=== PATIENT | female | born 1945 | race Caucasian/White ===

== ENCOUNTER → 2017-02-18 | Outpatient (CLI) | payer MEDICARE, BC ==
--- NOTE | 2017-02-18 08:53 | FL ---
EXAMINATION TYPE: FL barium enema w air contrast DATE OF EXAM: 02/18/2017 COMPARISON: CT abdomen pelvis dated 02/28/2010. HISTORY: History of bowel obstruction. Small caliber stools. TECHNIQUE: A double contrast barium enema study is performed. FINDINGS: Bag Adjuster view of the abdomen shows overall non-obstructive bowel gas pattern. Cholecystectomy clips are seen within the right upper quadrant. Degenerative changes are appreciated of the thoracol umbar spine, lumbosacral spine and femoral acetabular joints. No evidence of any mass or polyp, obstructing or constricting lesion throughout the colon. Numerous s igmoid diverticula are noted. Appendix was filled and appeared normal. The terminal ileum was refluxed and appears within normal l imits. Spot images of the cecum are unremarkable. IMPRESSION: 1. No evidence of obstruction or visualized mass. 2. Sigmoid diverticulosis.
== END | disposition home or self-care (01) ==
LOC: RADFLMAIN 07:38
PROVIDERS: ATTEND Surgery
DX: K57.30 Diverticulosis of large intestine without perforation or abscess without bleeding (principal)
CPT/HCPCS: 74280

== ENCOUNTER → 2017-02-25 | Outpatient (CLI) | payer MEDICARE, BC ==
[2017-02-25 12:39] LABS: EKG EKG PERFORMED
[2017-02-25 13:01] LABS: Basophils # (A) 0.1 k/uL (0-0.2); Basophils % (A) 1 %; CH 31.5; CHCM 32.4; Eosinophils # (A) 0.3 k/uL (0-0.7); Eosinophils % (A) 4 %; HCT 42.9 % (34.0-46.0); HGB 14.6 gm/dL (11.4-16.0); Luc # (Auto) 0.18; Luc % (Auto) 3; Lymphocytes # (A) 1.3 k/uL (1.0-4.8); Lymphocytes % (A) 18 %; MCH 33.2 pg (25.0-35.0); MCV 97.6 fL (80.0-100.0); Mean Platelet Volume 8.2; Monocytes # (A) 0.5 k/uL (0-1.0); Monocytes % (A) 7 %; Neutrophils # (A) 4.7 k/uL (1.3-7.7); Neutrophils % (A) 68 %; RDW 12.8 % (11.5-15.5); WBC 6.9 k/uL (3.8-10.6)
[2017-02-25 13:31] LABS: Anion Gap 8 mmol/L; Carbon Dioxide 27 mmol/L (22-30); Chloride 105 mmol/L (98-107); Sodium 140 mmol/L (137-145)
== END | disposition home or self-care (01) ==
LOC: LABPAT 12:10
PROVIDERS: ATTEND Surgery
DX: Z01.810 Encounter for preprocedural cardiovascular examination (principal); Z01.812 Encounter for preprocedural laboratory examination
CPT/HCPCS: 80051; 85025; 93005

== ENCOUNTER 2017-03-02 08:44 | Inpatient (IN) | payer MEDICARE, BC ==
[2017-02-25 09:13] VITALS: BMI 31.8
[~2017-03-02 08:44] MED LIST: HEPARIN SODIUM,PORCINE 5,000 UNIT/ML 1 ML VIAL SQ ONE; HYDROmorphone 1 MG/ML 1 ML SYRINGE IVP PRN; LIDOCAINE 1% 20 ML VIAL (10MG/ML) FOR IV START INTRADERMA PRN; MIDAZOLAM 2 MG/2 ML VIAL IV PRN; ONDANSETRON 4 MG/2 ML VIAL IVP ONE; ceFAZolin 2 GM in SODIUM CHLORIDE 0.9% 100 ML IVPB ONE; fentaNYL (PF) 50 MCG/ML 20 ML VIAL IVP PRN; metroNIDAZOLE-NS PMX 500 MG in SALINE 1 100ML.BAG IVPB ONE
[2017-03-02] MEDS ORDERED: NALOXONE 0.4 MG/ML 1 ML VIAL IV PRN (10:11)
[2017-03-02] MEDS ORDERED: BUPIVACAINE (PF) 0.5% 31.3 ML, HYDROMORPHONE (PF) 5 MG in SODIUM CHLORIDE 0.9% 218 ML EPIDURAL PRN (10:11)
[2017-03-02] MEDS: LACTATED RINGERS 1,000 ML IV SCH (10:33)
[2017-03-02] MEDS ORDERED: MIDAZOLAM 2 MG/2 ML VIAL IV ONE (10:53)
[2017-03-02] MEDS ORDERED: fentaNYL (PF) 50 MCG/ML 2 ML AMP IV ONE (10:53)
--- NOTE | 2017-03-02 10:56 | P.GSHP ---
History of Present Illness H&P Date: 03/02/17 Chief Complaint: Diverticulitis This a 71-year-old female who's had chronic complaints of left lower quadrant pain. She has had previous history of diverticulitis. Patient presents today for low anterior resection for chronic diverticulitis. Patient's aware the risks of surgery including bleeding, wound infection and possible colostomy. - Constitutional Constitutional: Reports as per HPI Past Medical History Past Medical History: Cancer, COPD, GERD/Reflux, Hyperlipidemia, Osteoarthritis (OA) Additional Past Medical History / Comment(s): diverticulitis, IBS, constipation , diarrhea, occ blood in stool, HX OF UTERINE CA. History of Any Multi-Drug Resistant Organisms: None Reported Past Surgical History: Breast Surgery, Cholecystectomy, Hysterectomy, Tonsillectomy Additional Past Surgical History / Comment(s): LINDA FUNDOPLASTY. 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/2013). jorge breast lumpectomy Past Anesthesia/Blood Transfusion Reactions: Previous Problems w/ Anesthesia, Motion Sickness Additional Past Anesthesia/Blood Transfusion Reaction / Comment(s): had trouble breathing one time when coming out of anesthesia Smoking Status: Current every day smoker - Past Family History Father Family Medical History: Cancer Mother Family Medical History: Cancer Brother(s) Family Medical History: Cancer Medications and Allergies Home Medications Medication Instructions Recorded Confirmed Type Atorvastatin [Lipitor] 10 mg PO DAILY 02/21/15 02/25/17 History Escitalopram [Lexapro] 40 mg PO BID 02/21/15 02/25/17 History lamoTRIgine [LaMICtal] 150 mg PO QAM 02/21/15 02/25/17 History Aspirin 325 mg PO BID PRN 12/03/15 02/25/17 History traZODone HCL 100 mg PO HS 02/25/17 02/25/17 History Allergies Allergy/AdvReac Type Severity Reaction Status Date / Time Iodinated Contrast- Oral and Allergy Unknown AGITATION, Verified 03/02/17 10:14 IV Dye SHAKING [Iodinated Contrast Media - IV Dye] prochlorperazine edisylate Allergy Unknown Verified 03/02/17 10:14 [From Compazine] prochlorperazine maleate Allergy Unknown Verified 03/02/17 10:14 [From Compazine] Surgical - Exam Vital Signs Temp Pulse Resp BP Pulse Ox 97.5 F L 58 L 16 125/76 96 03/02/17 10:31 03/02/17 10:31 03/02/17 10:31 03/02/17 10:31 03/02/17 10:31 - General well developed, no distress - Eyes PERRL - ENT normal pinna - Neck no masses - Respiratory normal expansion - Cardiovascular Rhythm: regular - Abdomen Mild left lower quadrant tenderness Abdomen: soft Results - Labs 03/02/17 10:27 Diabetes panel 03/02/17 Range/Units 10:27 Potassium 4.1 (3.5-5.1) mmol/L Pituitary panel 03/02/17 Range/Units 10:27 Potassium 4.1 (3.5-5.1) mmol/L Adrenal panel 03/02/17 Range/Units 10:27 Potassium 4.1 (3.5-5.1) mmol/L Assessment and Plan Plan: Chronic diverticulitis. We'll perform a low anterior section.
[2017-03-02 10:59] LABS: INR 1.1 (<1.2); Prothrombin Time 10.7 sec (9.0-12.0)
[2017-03-02] MEDS ORDERED: WATER FOR INJECTION, STERILE 10 ML VIAL IV ONE (11:29)
[2017-03-02] MEDS ORDERED: GLYCOPYRROLATE 0.2 MG/ML 2 ML VIAL ONE (11:29)
[2017-03-02] MEDS ORDERED: PROPOFOL 10 MG/ML 20 ML VIAL IV ONE (11:29)
[2017-03-02] MEDS ORDERED: NEOSTIGMINE 1 MG/ML 10 ML VIAL ONE (11:29)
[2017-03-02] MEDS ORDERED: SUCCINYLCHOLINE CHLORIDE 100 MG/5 ML SYR IV ONE (11:29)
[2017-03-02] MEDS ORDERED: VECURONIUM 10 MG VIAL IV ONE (11:29)
[2017-03-02] MEDS ORDERED: MIDAZOLAM 2 MG/2 ML VIAL ONE (11:29)
[2017-03-02] MEDS ORDERED: fentaNYL (PF) 50 MCG/ML 2 ML AMP ONE (11:29)
[2017-03-02] MEDS ORDERED: LIDOCAINE 1% INJ 10MG/ML (20 ML MDV) ONE (11:29)
[2017-03-02] MEDS ORDERED: LACTATED RINGERS 1,000 ML IV ONE (12:08)
[2017-03-02] MEDS ORDERED: HYDROmorphone 1 MG/ML 1 ML SYRINGE IVP PRN (13:03)
[2017-03-02] MEDS ORDERED: BENZOCAINE/MENTHOL LOZENG 1 EACH LOZENGE MUCOUS MEM PRN (13:03)
--- NOTE | 2017-03-02 13:03 | P.OP ---
Date of Procedure: 03/02/17 Preoperative Diagnosis: Diverticulitis Postoperative Diagnosis: Diverticulitis Procedure(s) Performed: Low anterior section Implants: Anesthesia: ASHER Surgeon: Phillip Contreras Estimated Blood Loss (ml): 25 Pathology: other (Sigmoid colon) Condition: stable Indications for Procedure: Operative Findings: Description of Procedure: The patient's placed the operative table in the supine position. She received general anesthesia. She was then placed in dorsal 5 position. Her abdomen was prepped and draped in usual sterile fashion. The abdomen was entered through a low midline incision. There is some adhesions to the anterior abdominal wall these were lysed with sharp dissection. The sigmoid colon was visualized. There appeared to be evidence of diverticular disease and sigmoid colon. The sigmoid colon was then mobilized. The white line of Toldt was divided. And adhesions to the sigmoid colon and lateral bladder wall were lysed using sharp dissection. A suitable spot in the descending colon was found and then this was transected with a GI stapler. Using the LigaSure device the mesentery the sigmoid colon was divided and this was taken down to the mesentery the rectum. The rectum was then transected with the contour stapler. The pursestring device applied to the proximal colon. And then the 25 mm EEA anvil was placed into the colon and the pursestring was secured. Next the EEA stapler was placed the patient's anus and the spike was driven through the rectal staple line. The anvil was connected to the stapler. The stapler closed and fired. Stapler was withdrawn and 2 intact tissue rings were found. A hydroureter was placed on the proximal colon and then using a rigid sigmoidoscope the rectum was insufflated with air. There is no extravasation of air at the stapled anastomosis. Enough pressure was placed into the rectum where air escaped around the anus. This was done twice. There is no evidence of leak. The fascia was closed with looped #1 PDS suture. The skin was closed chantal. Patient was sent to recovery in stable condition.
[2017-03-02] MEDS ORDERED: METOCLOPRAMIDE 5 MG/ML 2 ML VIAL IVP ONE (13:31)
[2017-03-02] MEDS: D5-0.45% NACL WITH KCL 20MEQ/L 1,000 ML IV SCH ×2 (15:17→22:24)
[2017-03-02 15:31] LABS: Basophils % (A) 0 %; CH 32.5; CHCM 32.9; Eosinophils # (A) 0.1 k/uL (0-0.7); Eosinophils % (A) 1 %; HCT 41.7 % (34.0-46.0); HDW 2.17; HGB 13.3 gm/dL (11.4-16.0); Luc # (Auto) 0.07; Luc % (Auto) 1; Lymphocytes # (A) 0.6 k/uL (1.0-4.8); Lymphocytes % (A) 5 %; MCH 31.7 pg (25.0-35.0); MCV 99.1 fL (80.0-100.0); Mean Platelet Volume 8.9; Monocytes # (A) 0.4 k/uL (0-1.0); Monocytes % (A) 3 %; Neutrophils # (A) 11.6 k/uL (1.3-7.7); Neutrophils % (A) 91 %; RDW 13.4 % (11.5-15.5); WBC 12.7 k/uL (3.8-10.6); WBC (Perox) 13.73
[2017-03-02 15:40] LABS: Anion Gap 7 mmol/L; Blood Urea Nitrogen 12 mg/dL (7-17); Calcium 8.5 mg/dL (8.4-10.2); Carbon Dioxide 25 mmol/L (22-30); Chloride 108 mmol/L (98-107); Glucose 113 mg/dL (74-99); Non-African American GFR(MDRD) 55 (>60 ml/min/1.73 sqM); Potassium 4.6 mmol/L (3.5-5.1); Sodium 140 mmol/L (137-145)
--- NOTE | 2017-03-02 16:13 | P.CONS ---
History of Present Illness - Reason for Consult Consult date: 03/02/17 Medical management requested by general surgery - History of Present Illness This is 71-year-old female with history of chronic diverticulitis was done the hospital electively for a low anterior resection. Patient has a history of depression previous history of tobacco use dyslipidemia. At the time of my evaluation patient is still drowsy from her recent anesthesia Is on 2 L of supplemental oxygen Patient has a epidural with bupivacaine infusion Patient's was at bedside states that she does not have any medical problems Blood pressure and vitals were stable Uneventful time in the or Review of systems are deferred due to patient being drowsy Gen. appearance alert oriented 3 doesn't appear to be in distress neck is supple no JVD Lungs good air movement clear to auscultation or rhonchi wheezing or crackles Abdomen is appropriately tender to palpation no drains noted Lower extremities no edema noted Heart regular rate and rhythm no murmurs appreciated Neuro slightly drowsy however moving all 4 extremities Assessment and plan graft #1 chronic diverticulitis status post low anterior resection #2 history of depression #3 dyslipidemia Plan Thank you for the consultation patient appears to be stable will further workup is needed encourage IS DVT prophylaxis as recommended will Follow patient along with you. Past Medical History Past Medical History: Cancer, COPD, GERD/Reflux, Hyperlipidemia, Osteoarthritis (OA) Additional Past Medical History / Comment(s): diverticulitis, IBS, constipation , diarrhea, occ blood in stool, HX OF UTERINE CA. History of Any Multi-Drug Resistant Organisms: None Reported Past Surgical History: Breast Surgery, Cholecystectomy, Hysterectomy, Tonsillectomy Additional Past Surgical History / Comment(s): LINDA FUNDOPLASTY. 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/2013). jorge breast lumpectomy Past Anesthesia/Blood Transfusion Reactions: Previous Problems w/ Anesthesia, Motion Sickness Additional Past Anesthesia/Blood Transfusion Reaction / Comm: had trouble breathing one time when coming out of anesthesia Smoking Status: Current every day smoker - Past Family History Father Family Medical History: Cancer Mother Family Medical History: Cancer Brother(s) Family Medical History: Cancer Medications and Allergies Home Medications Medication Instructions Recorded Confirmed Type Atorvastatin [Lipitor] 10 mg PO DAILY 02/21/15 03/02/17 History Escitalopram [Lexapro] 40 mg PO BID 02/21/15 03/02/17 History Aspirin 325 mg PO BID PRN 12/03/15 03/02/17 History traZODone HCL 100 mg PO HS 02/25/17 03/02/17 History lamoTRIgine [LaMICtal] 150 mg PO DAILY 03/02/17 03/02/17 History Allergies Allergy/AdvReac Type Severity Reaction Status Date / Time Iodinated Contrast- Oral and Allergy Unknown AGITATION, Verified 03/02/17 13:52 IV Dye SHAKING [Iodinated Contrast Media - IV Dye] prochlorperazine edisylate Allergy Unknown Verified 03/02/17 13:52 [From Compazine] prochlorperazine maleate Allergy Unknown Verified 03/02/17 13:52 [From Compazine] Physical Exam Vitals: Vital Signs Temp Pulse Pulse Resp BP Pulse Ox 03/02/17 14:30 60 16 111/53 96 03/02/17 14:24 62 16 115/57 93 L 03/02/17 14:15 62 16 104/53 92 L 03/02/17 14:00 60 16 104/53 98 03/02/17 13:45 55 L 16 106/59 03/02/17 13:30 57 L 16 111/50 99 03/02/17 13:10 97.0 F L 57 L 16 111/64 99 03/02/17 10:31 97.5 F L 58 L 16 125/76 96 Intake and Output 03/02/17 03/02/17 03/02/17 06:59 14:59 22:59 Intake Total 1900 Output Total 250 Balance 1650 Intake: IV 1900 Output: Urine 100 Estimated Blood Loss 150 Results CBC & Chem 7: 03/02/17 15:18 03/02/17 15:18 Labs: Abnormal Lab Results - Last 24 Hours (Table) 03/02/17 03/02/17 Range/Units 15:18 15:18 WBC 12.7 H (3.8-10.6) k/uL Neutrophils # 11.6 H (1.3-7.7) k/uL Lymphocytes # 0.6 L (1.0-4.8) k/uL Chloride 108 H (98-107) mmol/L Glucose 113 H (74-99) mg/dL
[2017-03-02] MEDS: ONDANSETRON 4 MG/2 ML VIAL IVP PRN (18:23)
[2017-03-02] MEDS: HEPARIN SODIUM,PORCINE 5,000 UNIT/ML 1 ML VIAL SQ SCH ×2 (18:43→23:15)
[2017-03-02] MEDS: FAMOTIDINE 20 MG/2 ML VIAL IV SCH (22:06)
[2017-03-02] MEDS: ALVIMOPAN 12 MG CAPSULE PO SCH (22:07)
[2017-03-03 05:00] VITALS: RESP 16
[2017-03-03] MEDS: LACTATED RINGERS 1,000 ML IV SCH (05:15)
[2017-03-03] MEDS: D5-0.45% NACL WITH KCL 20MEQ/L 1,000 ML IV SCH ×3 (05:35→22:07)
--- NOTE | 2017-03-03 08:42 | P.PN ---
Progress Note - Text Date: 03/03/2017 Time: 709 The patient is status post, low anterior resection postoperative day number 1 The patient has no complaints of nausea vomiting or headache. The patient does not complain of any lower extremity numbness or weakness. The epidural is running at 2 mL per hour. The epidural will be maintained and adjusted as needed.
[2017-03-03] MEDS: HEPARIN SODIUM,PORCINE 5,000 UNIT/ML 1 ML VIAL SQ SCH ×3 (09:02→23:45)
[2017-03-03] MEDS: FAMOTIDINE 20 MG/2 ML VIAL IV SCH (09:02)
[2017-03-03] MEDS: ALVIMOPAN 12 MG CAPSULE PO SCH ×2 (09:02→20:33)
[2017-03-03] MEDS: ONDANSETRON 4 MG/2 ML VIAL IVP PRN (12:13)
[2017-03-03] MEDS: METOCLOPRAMIDE 5 MG/ML 2 ML VIAL IVP PRN (18:36)
--- NOTE | 2017-03-03 18:40 | P.PN ---
Subjective This is 71-year-old female with history of chronic diverticulitis was done the hospital electively for a low anterior resection. Patient has a history of depression previous history of tobacco use dyslipidemia. At the time of my evaluation patient is still drowsy from her recent anesthesia Is on 2 L of supplemental oxygen Patient has a epidural with bupivacaine infusion Patient's was at bedside states that she does not have any medical problems Blood pressure and vitals were stable 03/03/2017 Patient is awake states that she has not passed flatus yet. No other complaints reported states that her abdomen is tender States that she has been having problems with evacuation of her stool and has to manually disimpact this has been ongoing for about 10-15 years. No obstruction was noted on a previous colonoscopy according to her. Gen. appearance alert oriented 3 doesn't appear to be in distres neck is supple no JVD Lungs good air movement clear to auscultation or rhonchi wheezing or crackles Abdomen is appropriately tender to palpation no drains noted Lower extremities no edema noted Heart regular rate and rhythm no murmurs appreciated Neuro alert oriented 3 cranial nerves to till 12 grossly intact moving all 4 extremities Assessment and plan graft #1 chronic diverticulitis status post low anterior resection #2 history of depression #3 dyslipidemia Plan Appears to be doing well. Question of patient benefit benefiting from anorectal manometric studies and biofeedback therapy I did discuss this with the patient and his be done on outpatient basis. Objective - Vital Signs Vital signs: Vital Signs Temp 98.9 F 03/03/17 15:01 Pulse 78 03/03/17 15:01 Resp 16 03/03/17 15:01 BP 104/59 03/03/17 15:01 Pulse Ox 95 03/03/17 15:01 Intake & Output 03/02/17 03/03/17 03/03/17 18:59 06:59 18:59 Intake Total 8010 942 3874 Output Total 827 196 8200 Balance 1650 -200 -100 Weight 81.647 kg Intake: IV 1900 1000 D5-0.45% NaCl with KCl 1000 20Meq/l 1,000 ml @ 125 mls/hr IV .Q8H [facility] Rx#: [id number] Oral 200 Output: Urine 361 859 9466 Uretheral (Ramesh) 1100 Estimated Blood Loss 150 Other: Voiding Method Indwelling Catheter Indwelling Catheter Indwelling Catheter - Labs CBC & Chem 7: 03/02/17 15:18 03/02/17 15:18
[2017-03-03] MEDS: traZODone HCL 100 MG TAB PO SCH (20:33)
[2017-03-04] MEDS: METOCLOPRAMIDE 5 MG/ML 2 ML VIAL IVP PRN (02:59)
[2017-03-04] MEDS: ALVIMOPAN 12 MG CAPSULE PO SCH ×2 (08:15→21:30)
[2017-03-04] MEDS: lamoTRIgine 25 MG TAB PO SCH (08:15)
[2017-03-04] MEDS: FAMOTIDINE 20 MG/2 ML VIAL IV SCH (08:15)
[2017-03-04] MEDS: lamoTRIgine 100 MG TAB PO SCH (08:15)
[2017-03-04] MEDS: HEPARIN SODIUM,PORCINE 5,000 UNIT/ML 1 ML VIAL SQ SCH ×3 (08:15→23:38)
[2017-03-04] MEDS: ATORVASTATIN 10 MG TAB PO SCH (08:15)
[2017-03-04] MEDS: D5-0.45% NACL WITH KCL 20MEQ/L 1,000 ML IV SCH ×3 (08:17→21:29)
--- NOTE | 2017-03-04 12:07 | P.PN ---
Subjective 71-year-old female being seen on rounds this morning currently sitting up in bed taking a clear liquid diet. Patient states pain medication effective for pain control patient has an epidural in place for pain control being monitored by anesthesiologist. Patient continues to report no numbness vomiting or headache. Patient also denying any lower extremity numbness or weakness. Patient is postop March 02 low anterior resection for acute diverticulitis. Patient has a history of having chronic left lower quadrant pain. Does have prior history of diverticulitis. Patient elected to undergo surgical procedure for treatment of acute diverticulitis by undergoing a low anterior resection Objective - Vital Signs Vital signs: Vital Signs Temp 97.3 F L 03/03/17 07:41 Pulse 75 03/03/17 07:41 Resp 16 03/03/17 07:41 BP 131/58 03/03/17 07:41 Pulse Ox 95 03/03/17 07:41 Intake & Output 03/02/17 03/03/17 03/03/17 18:59 06:59 18:59 Intake Total 1900 200 Output Total 250 400 Balance 1650 -200 Weight 81.647 kg Intake: IV 1900 Oral 200 Output: Urine 100 400 Estimated Blood Loss 150 Other: Voiding Method Indwelling Catheter Indwelling Catheter - Exam GENERAL APPEARANCE: 71-year-old female patient is alert, oriented, in no acute distress. Sitting up in bed pleasant cooperative VITAL SIGNS: Reviewed HEENT: Head is normocephalic and atraumatic. Pupils are equal and reactive. The nares are patent. Oropharynx is clear without lesions. NECK: Supple without lymphadenopathy. Traches midline. HEART: S1, S2. Regular rate and rhythm. Denying any chest pain no murmur noted LUNGS: No crackles or wheezes are heard. Able to use the incentive spirometer can achieve 1500 no cough noted ABDOMEN: Soft, not distended indwelling Ramesh catheter in place. Surgical dressing to the surgical site dry. Abdominal binder in place. Taking clear liquids denying any nausea sensation. A few hypoactive bowel tones noted. Slight Surgical tenderness. EXTREMITIES: Normal skin color and turgor. No cyanosis, rash, ulceration, clubbing or edema. Radial pedal pulses are 2/4 bilaterally. NEUROLOGICAL: No focal deficits. Strength and sensation are grossly intact. - Labs CBC & Chem 7: 03/02/17 15:18 09/05/17 15:18 Labs: Abnormal Lab Results - Last 24 Hours (Table) 03/02/17 03/02/17 Range/Units 15:18 15:18 WBC 12.7 H (3.8-10.6) k/uL Neutrophils # 11.6 H (1.3-7.7) k/uL Lymphocytes # 0.6 L (1.0-4.8) k/uL Chloride 108 H (98-107) mmol/L Glucose 113 H (74-99) mg/dL
--- NOTE | 2017-03-04 12:23 | P.PN ---
Subjective 71-year-old female being seen on rounds this morning sitting up in a chair with a sitter at the bedside nursing reports patient did have an episode last evening of increased confusion with agitation. Currently patient is pleasant cooperative oriented to person and place and event. Nursing reports that the patient has had an episode of being incontinent of stool small amount. Currently patient is asking "I just need a little bit of toast" there's been no reports of nausea vomiting. Currently has epidural in place for pain control being monitored by anesthesiologist Patient is postop March 02 low anterior resection for acute diverticulitis. Patient has a history of having chronic left lower quadrant pain. Does have prior history of diverticulitis. Patient elected to undergo surgical procedure for treatment of acute diverticulitis by undergoing a low anterior resection Objective - Vital Signs Vital signs: Vital Signs Temp 97.6 F 03/04/17 07:25 Pulse 69 03/04/17 07:25 Resp 16 03/04/17 01:56 BP 118/43 03/04/17 07:25 Pulse Ox 95 03/04/17 08:04 Intake & Output 03/03/17 03/04/17 03/04/17 18:59 06:59 18:59 Intake Total 1000 3280 Output Total 1100 1800 Balance -100 1480 Weight 81.647 kg Intake: IV 1000 1000 D5-0.45% NaCl with KCl 1000 1000 20Meq/l 1,000 ml @ 125 mls/hr IV .Q8H [facility] Rx#: [id number] Intake, IV Titration 1000 Amount D5-0.45% NaCl with KCl 1000 20Meq/l 1,000 ml @ 125 mls/hr IV .Q8H [facility] Rx#: [id number] Oral 1280 Output: Urine 1100 1800 Uretheral (Ramesh) 1100 1800 Other: Voiding Method Indwelling Catheter Indwelling Catheter Indwelling Catheter - Exam GENERAL APPEARANCE: 71-year-old female patient is alert, oriented to person place event in no acute distress. Sitting up in a chair pleasant cooperative answering questions appropriately spouse at the bedside VITAL SIGNS: Reviewed HEENT: Head is normocephalic and atraumatic. Pupils are equal and reactive. The nares are patent. Oropharynx is clear without lesions. NECK: Supple without lymphadenopathy. Traches midline. HEART: S1, S2. Regular rate and rhythm. Denying any chest pain no murmur noted LUNGS: No crackles or wheezes are heard. Able to use the incentive spirometer can achieve 1500 no cough noted ABDOMEN: Soft, not distended indwelling Ramesh catheter in place. Surgical dressing to the surgical site dry. Abdominal binder in place. Taking clear liquids denying any nausea sensation. A few hypoactive bowel tones noted. Slight Surgical tenderness. EXTREMITIES: Normal skin color and turgor. No cyanosis, rash, ulceration, clubbing or edema. Radial pedal pulses are 2/4 bilaterally. NEUROLOGICAL: No focal deficits. Strength and sensation are grossly intact. - Labs CBC & Chem 7: 03/02/17 15:18 03/02/17 15:18 Assessment and Plan Plan: Impression Present on admission chronic left lower quadrant pain in a patient with a history of diverticulitis Status post elective done on March 02 low anterior resection for chronic diverticulitis Dyslipidemia Depressive disorder nonspecified Episode postop confusion suspect due to analgesics improving Plan Continue postop surgical care as directed Continue recommendations by anesthesiologist for pain control Keep Ramesh catheter while epidural is in place Pain control Resume home meds as appropriate DVT and GI prophylaxis continue sitter for another 24 hours The above impression and plan of care have been discussed and directed by signing physician. Edwige Jimenez nurse practitioner acting as scribe for signing physician.
[2017-03-04] MEDS: ONDANSETRON 4 MG/2 ML VIAL IVP PRN (12:39)
[2017-03-04] MEDS: ESCITALOPRAM 20 MG TAB PO SCH (12:41)
--- NOTE | 2017-03-04 13:31 | P.PN ---
Progress Note - Text 0720 Anesthesia POD 2. Status Post oh anterior resection under general endotracheal anesthesia with an epidrual catheter placed at a low thoracic position for post surgical pain releif. VAS (1, 4) with Bupivicaine [0.0625] % and Dilaudid 20 mcg / cc running at 2 cc / hr. Lower extremity strength (4/4). No sedation. Site looks OK.
[2017-03-04] MEDS: LACTATED RINGERS 1,000 ML IV SCH (15:38)
[2017-03-04] MEDS: traZODone HCL 100 MG TAB PO SCH (21:30)
[2017-03-05] MEDS: ONDANSETRON 4 MG/2 ML VIAL IVP PRN ×2 (04:57→14:06)
[2017-03-05] MEDS: LACTATED RINGERS 1,000 ML IV SCH (05:35)
[2017-03-05] MEDS: D5-0.45% NACL WITH KCL 20MEQ/L 1,000 ML IV SCH ×3 (05:36→22:06)
[2017-03-05] MEDS: ATORVASTATIN 10 MG TAB PO SCH (08:45)
[2017-03-05] MEDS: FAMOTIDINE 20 MG/2 ML VIAL IV SCH (08:45)
[2017-03-05] MEDS: ALVIMOPAN 12 MG CAPSULE PO SCH ×2 (08:45→22:26)
[2017-03-05] MEDS: ESCITALOPRAM 20 MG TAB PO SCH (08:45)
[2017-03-05] MEDS: lamoTRIgine 100 MG TAB PO SCH (08:45)
[2017-03-05] MEDS: lamoTRIgine 25 MG TAB PO SCH (08:46)
--- NOTE | 2017-03-05 09:47 | P.PN ---
Subjective 71-year-old female being seen on rounds this morning. Patient is pleasant cooperative oriented 3 no further episodes of confusion noted. Patient states she's anxious to ambulate. Nursing reports did ambulate the patient [address] in [address] hallway this morning. Currently the patient is up sitting in a chair. Currently tolerating a clear liquid diet. States not passing gas no stool indwelling Ramesh catheter in place no reports of nausea vomiting. Abdominal binder in place surgical dressing dryPatient is postop March 02 low anterior resection for acute diverticulitis. Patient has a history of having chronic left lower quadrant pain. Does have prior history of diverticulitis. Patient elected to undergo surgical procedure for treatment of acute diverticulitis by undergoing a low anterior resection Patient is postop March 02 low anterior resection for acute diverticulitis. Patient has a history of having chronic left lower quadrant pain. Does have prior history of diverticulitis. Patient elected to undergo surgical procedure for treatment of acute diverticulitis by undergoing a low anterior resection Objective - Vital Signs Vital signs: Vital Signs Temp 97.8 F 03/05/17 01:36 Pulse 67 03/05/17 01:36 Resp 16 03/05/17 04:00 BP 121/59 03/05/17 01:36 Pulse Ox 94 L 03/05/17 01:36 Intake & Output 03/04/17 03/05/17 03/05/17 18:59 06:59 18:59 Intake Total 1365 1500 Output Total 1250 1800 Balance 115 -300 Intake: IV 1125 1500 D5-0.45% NaCl with KCl 1125 1500 20Meq/l 1,000 ml @ 125 mls/hr IV .Q8H [facility] Rx#: [id number] Oral 240 Output: Urine 1250 1800 Uretheral (Ramesh) 1800 Other: Voiding Method Incontinent Indwelling Catheter Indwelling Catheter - Exam GENERAL APPEARANCE: 71-year-old female patient is alert, oriented to person place event in no acute distress. Sitting up in a chair pleasant cooperative answering questions nursing reports patient did ambulate once in the hallway this morning VITAL SIGNS: Reviewed HEENT: Head is normocephalic and atraumatic. Pupils are equal and reactive. The nares are patent. Oropharynx is clear without lesions. NECK: Supple without lymphadenopathy. Traches midline. HEART: S1, S2. Regular rate and rhythm. Denying any chest pain no murmur noted LUNGS: No crackles or wheezes are heard. Able to use the incentive spirometer can achieve 1500 no cough noted ABDOMEN: Soft, not distended indwelling Ramesh catheter in place. Surgical dressing to the surgical site dry. Abdominal binder in place. Taking clear liquids denying any nausea sensation. A few hypoactive bowel tones noted. Slight Surgical tenderness. States abdominal discomfort improving EXTREMITIES: Normal skin color and turgor. No cyanosis, rash, ulceration, clubbing or edema. Radial pedal pulses are 2/4 bilaterally. NEUROLOGICAL: No focal deficits. Strength and sensation are grossly intact. - Labs CBC & Chem 7: 03/02/17 15:18 03/02/17 15:18 Assessment and Plan Plan: Impression Present on admission chronic left lower quadrant pain in a patient with a history of diverticulitis Status post elective done on March 02 low anterior resection for chronic diverticulitis Dyslipidemia Depressive disorder nonspecified Episode postop confusion toxic encephalopathy due to analgesics improving resolving Depressive anxiety disorder nonspecified History of a mood disorder on Lamictal Current every day smoker Plan Continue postop surgical care as directed Continue recommendations by anesthesiologist for pain control Keep Ramesh catheter while epidural is in place Pain control Resume home meds as appropriate DVT and GI prophylaxis Increase activity Discharge plan and progress home care requested by patient wrapper caser pursuing Check labs in the morning Reinforce smoking cessation patient's been advised to stop smoking The above impression and plan of care have been discussed and directed by signing physician. Edwige Jimenez nurse practitioner acting as scribe for signing physician.
[2017-03-05] MEDS: HEPARIN SODIUM,PORCINE 5,000 UNIT/ML 1 ML VIAL SQ SCH ×2 (10:59→18:12)
--- NOTE | 2017-03-05 12:58 | P.PN ---
Progress Note - Text 03/05 714am 71-year-old female status post APR with Dr. epps. Patient doing well pain well controlled [place] running at 2 mL an hour. Motor or sensory deficit
[2017-03-05] MEDS ORDERED: ACETAMINOPHEN TAB 325 MG TAB PO PRN (13:32)
[2017-03-05] MEDS: traMADol 50 MG TAB PO PRN ×2 (14:44→22:06)
[2017-03-05] MEDS: METOCLOPRAMIDE 5 MG/ML 2 ML VIAL IVP PRN (18:12)
[2017-03-05] MEDS: traZODone HCL 100 MG TAB PO SCH (22:26)
[2017-03-06] MEDS: HEPARIN SODIUM,PORCINE 5,000 UNIT/ML 1 ML VIAL SQ SCH ×4 (02:24→23:53)
[2017-03-06] MEDS: traMADol 50 MG TAB PO PRN (05:14)
[2017-03-06] MEDS: LACTATED RINGERS 1,000 ML IV SCH (07:45)
[2017-03-06] MEDS: D5-0.45% NACL WITH KCL 20MEQ/L 1,000 ML IV SCH ×3 (08:12→22:36)
[2017-03-06 08:31] LABS: Basophils % (A) 0 %; CH 32.9; CHCM 33.3; Eosinophils # (A) 0.3 k/uL (0-0.7); Eosinophils % (A) 5 %; HCT 35.2 % (34.0-46.0); HGB 11.2 gm/dL (11.4-16.0); Luc # (Auto) 0.14; Luc % (Auto) 2; Lymphocytes # (A) 0.6 k/uL (1.0-4.8); Lymphocytes % (A) 8 %; MCH 31.6 pg (25.0-35.0); MCHC 31.9 g/dL (31.0-37.0); Mean Platelet Volume 9.7; Monocytes # (A) 0.5 k/uL (0-1.0); Monocytes % (A) 6 %; Neutrophils # (A) 5.8 k/uL (1.3-7.7); Neutrophils % (A) 80 %; RBC 3.55 m/uL (3.80-5.40); RDW 13.3 % (11.5-15.5); WBC 7.3 k/uL (3.8-10.6); WBC (Perox) 8.08
[2017-03-06 08:45] LABS: ALT 25 U/L (9-52); AST 22 U/L (14-36); Alkaline Phosphatase 48 U/L (38-126); Anion Gap 5 mmol/L; Blood Urea Nitrogen <2 mg/dL (7-17); Calcium 8.5 mg/dL (8.4-10.2); Carbon Dioxide 29 mmol/L (22-30); Chloride 106 mmol/L (98-107); Glucose 99 mg/dL (74-99); Non-African American GFR(MDRD) >60 (>60 ml/min/1.73 sqM); Potassium 5.1 mmol/L (3.5-5.1); Sodium 140 mmol/L (137-145); Total Bilirubin 0.4 mg/dL (0.2-1.3); Total Protein 4.9 g/dL (6.3-8.2)
[2017-03-06] MEDS: ALVIMOPAN 12 MG CAPSULE PO SCH ×2 (09:53→22:32)
[2017-03-06] MEDS: ESCITALOPRAM 20 MG TAB PO SCH (09:53)
[2017-03-06] MEDS: lamoTRIgine 100 MG TAB PO SCH (09:54)
[2017-03-06] MEDS: ATORVASTATIN 10 MG TAB PO SCH (09:54)
[2017-03-06] MEDS: FAMOTIDINE 20 MG/2 ML VIAL IV SCH (09:54)
[2017-03-06] MEDS: lamoTRIgine 25 MG TAB PO SCH (09:54)
[2017-03-06] MEDS: HYDROcodone/APAP 7.5-325MG 1 EACH TAB PO PRN ×3 (10:26→21:52)
--- NOTE | 2017-03-06 14:35 | P.PN ---
Progress Note - Text The patient is improving. She has not had a bowel movement. She's had some flatus. On exam her vital signs are stable. Her abdomen soft. Her incision is clean dry and intact. The patient will have her diet advanced. Hopefully discharge home the next 48 hours.
--- NOTE | 2017-03-06 15:27 | P.PN ---
Subjective This is 71-year-old female with history of chronic diverticulitis was done the hospital electively for a low anterior resection. Patient has a history of depression previous history of tobacco use dyslipidemia. At the time of my evaluation patient is still drowsy from her recent anesthesia Is on 2 L of supplemental oxygen Patient has a epidural with bupivacaine infusion Patient's was at bedside states that she does not have any medical problems Blood pressure and vitals were stable 03/03/2017 Patient is awake states that she has not passed flatus yet. No other complaints reported states that her abdomen is tender States that she has been having problems with evacuation of her stool and has to manually disimpact this has been ongoing for about 10-15 years. No obstruction was noted on a previous colonoscopy according to her. 03/06/2017 Patient is doing well does not have bowel movement is tolerating diet however does not have a significant appetite. Gen. appearance alert oriented 3 doesn't appear to be in distres neck is supple no JVD Lungs good air movement clear to auscultation or rhonchi wheezing or crackles Abdomen is appropriately tender to palpation no drains noted Lower extremities no edema noted Heart regular rate and rhythm no murmurs appreciated Neuro alert oriented 3 cranial nerves to till 12 grossly intact moving all 4 extremities Assessment and plan graft #1 chronic diverticulitis status post low anterior resection #2 history of depression #3 dyslipidemia Plan Stable. Continue ongoing care patient has not had a bowel movement Discussed regulation of her bowel movements for her chronic constipation thereafter possible referral for manometric studies Objective - Vital Signs Vital signs: Vital Signs Temp 98.7 F 03/06/17 14:41 Pulse 76 03/06/17 14:41 Resp 16 03/06/17 07:00 BP 115/74 03/06/17 14:41 Pulse Ox 98 03/06/17 14:41 Intake & Output 03/05/17 03/06/17 03/06/17 18:59 06:59 18:59 Intake Total 1000 2190 Output Total 2500 350 Balance -1500 1840 Weight 81.647 kg 81.647 kg Intake: IV 1000 1000 D5-0.45% NaCl with KCl 1000 1000 20Meq/l 1,000 ml @ 125 mls/hr IV .Q8H [facility] Rx#: [id number] Oral 1190 Output: Urine 2500 350 Uretheral (Ramesh) 2100 Other: Voiding Method Indwelling Catheter # Voids 3 - Labs CBC & Chem 7: 03/06/17 06:37 03/06/17 06:37 Labs: Abnormal Lab Results - Last 24 Hours (Table) 03/06/17 03/06/17 Range/Units 06:37 06:37 RBC 3.55 L (3.80-5.40) m/uL Hgb 11.2 L (11.4-16.0) gm/dL Plt Count 146 L (150-450) k/uL Lymphocytes # 0.6 L (1.0-4.8) k/uL BUN <2 L (7-17) mg/dL Total Protein 4.9 L (6.3-8.2) g/dL Albumin 2.7 L (3.5-5.0) g/dL
[2017-03-06] MEDS: FAMOTIDINE 20 MG TAB PO SCH (22:33)
[2017-03-06] MEDS: traZODone HCL 100 MG TAB PO SCH (22:33)
[2017-03-07] MEDS: D5-0.45% NACL WITH KCL 20MEQ/L 1,000 ML IV SCH ×4 (05:46→20:59)
--- NOTE | 2017-03-07 09:24 | P.PN ---
Progress Note - Text The patient is doing better. She has complaints of diarrhea. On exam her vital signs are stable. Her abdomen soft. Her incision site is clean dry and intact. Patient will be observed. Hopefully her diarrhea improves next 24-48 hours.
[2017-03-07] MEDS: ATORVASTATIN 10 MG TAB PO SCH (11:01)
[2017-03-07] MEDS: HEPARIN SODIUM,PORCINE 5,000 UNIT/ML 1 ML VIAL SQ SCH ×3 (11:01→23:42)
[2017-03-07] MEDS: FAMOTIDINE 20 MG TAB PO SCH ×2 (11:01→20:34)
[2017-03-07] MEDS: ESCITALOPRAM 20 MG TAB PO SCH (11:01)
[2017-03-07] MEDS: ALVIMOPAN 12 MG CAPSULE PO SCH ×2 (11:01→20:33)
[2017-03-07] MEDS: lamoTRIgine 100 MG TAB PO SCH (11:02)
[2017-03-07] MEDS: lamoTRIgine 25 MG TAB PO SCH (11:02)
[2017-03-07] MEDS: HYDROcodone/APAP 7.5-325MG 1 EACH TAB PO PRN ×3 (11:08→20:34)
--- NOTE | 2017-03-07 18:11 | P.PN ---
Subjective This is 71-year-old female with history of chronic diverticulitis was done the hospital electively for a low anterior resection. Patient has a history of depression previous history of tobacco use dyslipidemia. At the time of my evaluation patient is still drowsy from her recent anesthesia Is on 2 L of supplemental oxygen Patient has a epidural with bupivacaine infusion Patient's was at bedside states that she does not have any medical problems Blood pressure and vitals were stable 03/03/2017 Patient is awake states that she has not passed flatus yet. No other complaints reported states that her abdomen is tender States that she has been having problems with evacuation of her stool and has to manually disimpact this has been ongoing for about 10-15 years. No obstruction was noted on a previous colonoscopy according to her. 03/06/2017 Patient is doing well does not have bowel movement is tolerating diet however does not have a significant appetite. 03/07/2017 Doing well continues to have loose stools no fevers chills nausea vomiting chest pain difficulty breathing reported Gen. appearance alert oriented 3 doesn't appear to be in distres neck is supple no JVD Lungs good air movement clear to auscultation or rhonchi wheezing or crackles Abdomen is appropriately tender to palpation no drains noted Lower extremities no edema noted Heart regular rate and rhythm no murmurs appreciated Neuro alert oriented 3 cranial nerves to till 12 grossly intact moving all 4 extremities Assessment and plan graft #1 chronic diverticulitis status post low anterior resection #2 history of depression #3 dyslipidemia Plan Stable. Continue ongoing care patient has not had a bowel movement No new recommendations patient is doing better is ambulating Discussed regulation of her bowel movements for her chronic constipation thereafter possible referral for manometric studies Objective - Vital Signs Vital signs: Vital Signs Temp 97.5 F L 03/07/17 15:42 Pulse 76 03/07/17 15:42 Resp 16 03/07/17 07:00 BP 118/79 03/07/17 15:42 Pulse Ox 94 L 03/07/17 07:00 Intake & Output 03/06/17 03/07/17 03/07/17 18:59 06:59 18:59 Intake Total 1438 2120 1417 Balance 1438 2120 1417 Weight 81.647 kg Intake: IV 938 1400 937 D5-0.45% NaCl with KCl 938 1400 937 20Meq/l 1,000 ml @ 125 mls/hr IV .Q8H [facility] Rx#: [id number] Oral 500 357 319 Other: Voiding Method Toilet # Voids 2 # Bowel Movements 1 - Labs CBC & Chem 7: 03/06/17 06:37 03/06/17 06:37
[2017-03-07] MEDS: traZODone HCL 100 MG TAB PO SCH (20:36)
[2017-03-08] MEDS: HYDROcodone/APAP 7.5-325MG 1 EACH TAB PO PRN ×3 (01:55→10:23)
[2017-03-08] MEDS: D5-0.45% NACL WITH KCL 20MEQ/L 1,000 ML IV SCH (04:45)
[2017-03-08 07:10] VITALS: BP 158/77; PULSE 80; TEMP 98
[2017-03-08] MEDS: ATORVASTATIN 10 MG TAB PO SCH (08:25)
[2017-03-08] MEDS: lamoTRIgine 25 MG TAB PO SCH (08:25)
[2017-03-08] MEDS: ESCITALOPRAM 20 MG TAB PO SCH (08:25)
[2017-03-08] MEDS: HEPARIN SODIUM,PORCINE 5,000 UNIT/ML 1 ML VIAL SQ SCH (08:25)
[2017-03-08] MEDS: ALVIMOPAN 12 MG CAPSULE PO SCH (08:25)
[2017-03-08] MEDS: FAMOTIDINE 20 MG TAB PO SCH (08:25)
[2017-03-08] MEDS: lamoTRIgine 100 MG TAB PO SCH (09:10)
--- NOTE | 2017-03-08 11:24 | P.DS ---
Providers Date of admission: 03/02/17 08:44 Expected date of discharge: 03/08/17 Attending physician: Phillip Contreras Consults: 03/02/17 13:03 Consult Physician Routine Consulting Provider: Viola Bentley Consult Reason/Comments: med manage Do you want consulting provider notified?: Yes Primary care physician: Radha [facility] Course: 71-year-old female who has a past medical history of chronic diverticulitis presented electively to undergo a low anterior resection for diverticulitis done on March 02 no significant postop events. On the day of discharge patient was able to ambulate independently in the room and the redman Patient stated the diarrhea loose stooling that she was experiencing several days prior had resolved the hemoglobin on the ninth was 11.2 electrolytes drawn on the ninth were within normal limits patient was felt to be hemodynamically stable and appropriate to proceed with a discharge to home Impression Present on admission chronic left lower quadrant pain in a patient with a history of diverticulitis Status post elective low anterior resection for chronic diverticulitis done on March 02 Dyslipidemia Depressive disorder nonspecified Episode postop confusion toxic encephalopathy due to analgesics resolved Depressive anxiety disorder nonspecified History of a mood disorder on Lamictal Current every day smoker The above impression and plan of care have been discussed and directed by signing physician. Edwige Jimenez nurse practitioner acting as scribe for signing physician. Plan - Discharge Summary New Discharge Prescriptions: New HYDROcodone/APAP 7.5-325MG [[place] 7.5-325] 1 each PO Q4H PRN #30 tab PRN Reason: Pain Docusate [Colace] 100 mg PO BID #60 capsule Psyllium Husk 100% [Metamucil Packet] 1 packet PO DAILY #30 packet Continue Atorvastatin [Lipitor] 10 mg PO DAILY Escitalopram [Lexapro] 40 mg PO DAILY traZODone HCL 100 mg PO HS lamoTRIgine [LaMICtal] 150 mg PO DAILY Discontinued Aspirin 325 mg PO BID PRN PRN Reason: Pain Discharge Medication List Atorvastatin [Lipitor] 10 mg PO DAILY 02/21/15 [History] Escitalopram [Lexapro] 40 mg PO DAILY 02/21/15 [History] traZODone HCL 100 mg PO HS 02/25/17 [History] lamoTRIgine [LaMICtal] 150 mg PO DAILY 03/02/17 [History] Docusate [Colace] 100 mg PO BID #60 capsule 03/08/17 [Rx] HYDROcodone/APAP 7.5-325MG [[place] 7.5-325] 1 each PO Q4H PRN #30 tab 03/08/17 [ Rx] Psyllium Husk 100% [Metamucil Packet] 1 packet PO DAILY #30 packet 03/08/17 [Rx] Follow up Appointment(s)/Referral(s): [facility], [NON-STAFF] - Phillip Contreras MD [STAFF PHYSICIAN] - 1 Week Activity/Diet/Wound Care/Special Instructions: May shower daily no tub bath Wear binder while out No lifting over 10 pounds Notify the attending of any redness at the surgical sites fever or chills Discharge Disposition: HOME WITH HOME HEALTH SERVICES
--- NOTE | 2017-03-08 14:55 | P.PN ---
Subjective no overnight events patient is clinically doing well okay to discharged from medical perspective. Patient denied any chest pain, fever, chills, nausea, vomiting, abdominal pain. Discharge medication the consideration was reviewed and appropriate. Objective - Vital Signs Vital signs: Vital Signs Temp 98 F 03/08/17 07:10 Pulse 80 03/08/17 07:10 Resp 16 03/08/17 07:10 BP 158/77 03/08/17 07:10 Pulse Ox 92 L 03/08/17 07:10 Intake & Output 03/07/17 03/08/17 03/08/17 18:59 06:59 18:59 Intake Total 1417 200 Balance 1417 200 Intake: IV 937 D5-0.45% NaCl with KCl 937 20Meq/l 1,000 ml @ 125 mls/hr IV .Q8H [facility] Rx#: [id number] Oral 480 200 Other: Voiding Method Toilet # Voids 2 - Exam PHYSICAL EXAMINATION: GENERAL: The patient is alert and oriented x3, not in any acute distress. Well developed, well nourished. HEENT: Pupils are round and equally reacting to light. EOMI. No scleral icterus. No conjunctival pallor. Normocephalic, atraumatic. No pharyngeal erythema. No thyromegaly. CARDIOVASCULAR: S1 and S2 present. No murmurs, rubs, or gallops. PULMONARY: Chest is clear to auscultation, no wheezing or crackles. ABDOMEN: Soft, nontender, nondistended, normoactive bowel sounds. No palpable organomegaly. MUSCULOSKELETAL: No joint swelling or deformity. EXTREMITIES: No cyanosis, clubbing, or pedal edema. NEUROLOGICAL: Gross neurological examination did not reveal any focal deficits. SKIN: No rashes. - Labs CBC & Chem 7: 03/06/17 06:37 03/06/17 06:37 Assessment and Plan Plan: #1 chronic diverticulitis status post low anterior resection #2 history of depression #3 dyslipidemia patient discharge medications were reconciled and reviewed and appropriate for discharge from medical perspective. We will sign off at this time.
== END 2017-03-08 14:42 | disposition home health service (06) | DRG 329 ==
LOC: 2ORWHC 08:44 → 3SUR 13:12
PROVIDERS: ADMIT Surgery; ATTEND Surgery
PROC: 0DTN0ZZ Resection of Sigmoid Colon, Open Approach (ICD-10-PCS; principal; 2017-03-02 10:55)
DX: K57.32 Diverticulitis of large intestine without perforation or abscess without bleeding (principal); G92 Toxic encephalopathy; F32.9 Major depressive disorder, single episode, unspecified; E78.5 Hyperlipidemia, unspecified; F17.200 Nicotine dependence, unspecified, uncomplicated; F41.9 Anxiety disorder, unspecified; T39.95XA Adverse effect of unspecified nonopioid analgesic, antipyretic and antirheumatic, initial encounter; J44.9 Chronic obstructive pulmonary disease, unspecified; K21.9 Gastro-esophageal reflux disease without esophagitis; K58.9 Irritable bowel syndrome, unspecified; Z79.82 Long term (current) use of aspirin; Z79.899 Other long term (current) drug therapy; Z85.42 Personal history of malignant neoplasm of other parts of uterus
CPT/HCPCS: 80048; 80053; 84132; 85025; 85610; 86850; 86900; 86901; 88307; 94760

== ENCOUNTER 2017-03-09 15:02 | Emergency (ER) | payer MEDICARE, BC ==
[2017-03-09 15:09] VITALS: BP 123/74; PULSE 85; RESP 20; TEMP 98.1
--- NOTE | 2017-03-09 16:50 | ED ---
General Adult HPI - General Chief complaint: Recheck/Abnormal Lab/Rx Stated complaint: post op chantal Time Seen by Provider: 03/09/17 16:37 Source: patient, RN notes reviewed Mode of arrival: wheelchair Limitations: no limitations - History of Present Illness Initial comments: Patient 71-year-old female who presents emergency room status post bowel resection times one week, with chief complaint of possible wound dehiscence. Patient states that she was released from the hospital last night. She states she was going to have a shower this morning her sister noticed that a few of the staple seemed to be out of place. She states that wound care nurse to come to her house today and advised come here to the emergency room to have this evaluated. Patient currently denies any complaints or symptoms at this time. Patient denies any recent fever, chills, shortness of breath, chest pain, back pain, nausea or vomiting, numbness or tingling, dysuria or hematuria, constipation or diarrhea, headaches or visual changes, or any other complaints. - Related Data Home Medications Medication Instructions Recorded Confirmed Atorvastatin [Lipitor] 10 mg PO DAILY 02/21/15 03/02/17 Escitalopram [Lexapro] 40 mg PO DAILY 02/21/15 03/04/17 traZODone HCL 100 mg PO HS 02/25/17 03/02/17 lamoTRIgine [LaMICtal] 150 mg PO DAILY 03/02/17 03/02/17 HYDROcodone/APAP 7.5-325MG [[place] 1 tab PO Q4H PRN 03/09/17 03/09/17 7.5-325] Previous Rx's Medication Instructions Recorded Docusate [Colace] 100 mg PO BID #60 capsule 03/08/17 Psyllium Husk 100% [Metamucil 1 packet PO DAILY #30 packet 03/08/17 Packet] Allergies Allergy/AdvReac Type Severity Reaction Status Date / Time Iodinated Contrast- Oral and Allergy Unknown AGITATION, Verified 03/09/17 15:09 IV Dye SHAKING [Iodinated Contrast Media - IV Dye] prochlorperazine edisylate Allergy Unknown Verified 03/09/17 15:09 [From Compazine] prochlorperazine maleate Allergy Unknown Verified 03/09/17 15:09 [From Compazine] Review of Systems ROS Statement: Those systems with pertinent positive or pertinent negative responses have been documented in the HPI. ROS Other: All systems not noted in ROS Statement are negative. Past Medical History Past Medical History: Cancer, COPD, GERD/Reflux, Hyperlipidemia, Osteoarthritis (OA) Additional Past Medical History / Comment(s): diverticulitis, IBS, constipation , diarrhea, occ blood in stool, HX OF UTERINE CA. History of Any Multi-Drug Resistant Organisms: None Reported Past Surgical History: Breast Surgery, Cholecystectomy, Hysterectomy, Tonsillectomy Additional Past Surgical History / Comment(s): LINDA FUNDOPLASTY. 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/2013). jorge breast lumpectomy Past Anesthesia/Blood Transfusion Reactions: Previous Problems w/ Anesthesia, Motion Sickness Additional Past Anesthesia/Blood Transfusion Reaction / Comment(s): had trouble breathing one time when coming out of anesthesia Past Psychological History: Anxiety, Depression Smoking Status: Current every day smoker Past Alcohol Use History: None Reported Past Drug Use History: None Reported - Past Family History Father Family Medical History: Cancer Mother Family Medical History: Cancer Brother(s) Family Medical History: Cancer General Exam - General Exam Comments Initial Comments: General: The patient is awake and alert, in no distress, and does not appear acutely ill. Eye: Pupils are equal, round and reactive to light, extra-ocular movements are intact. No nystagmus. There is normal conjunctiva bilaterally. No signs of icterus. Ears, nose, mouth and throat: There are moist mucous membranes and no oral lesions. Neck: The neck is supple, there is no tenderness or JVD. Cardiovascular: There is a regular rate and rhythm. No murmur, rub or gallop is appreciated. Respiratory: Lungs are clear to auscultation, respirations are non-labored, breath sounds are equal. No wheezes, stridor, rales, or rhonchi. Gastrointestinal: Patient does have surgical incision midline. There are 2 or 3 chantal appear to be moved. Patient's abdomen is soft. No drainage. Musculoskeletal: Normal ROM, no tenderness. Strength 5/5. Sensation intact. Pulses equal bilaterally 2+. Neurological: A&O x 3. CN II-XII intact, There are no obvious motor or sensory deficits. Coordination appears grossly intact. Speech is normal. Skin: Skin is warm and dry and no rashes or lesions are noted. Psychiatric: Cooperative, appropriate mood & affect, normal judgment. Limitations: no limitations Course Vital Signs 03/09/17 15:07 Temperature 98.1 F Pulse Rate 85 Respiratory 20 Rate Blood Pressure 123/74 O2 Sat by Pulse 98 Oximetry Medical Decision Making - Medical Decision Making Case was discussed with attending physician Dr. Moore. Patient at that time discuss case with patient's surgeon Dr. Contreras recommended wet-to-dry dressing following up in the office over the next 2 days. Patient also admits to some diarrhea. No abdominal pain. Patient will be discharged home with a prescription for C. diff. Given supplies to collect and return to the hospital. Advised to follow-up the surgeon or return to emergency room if symptoms increase worsen or for any Disposition Clinical Impression: Postop check, Acute diarrhea Disposition: HOME SELF-CARE Condition: Good Instructions: Acute Diarrhea (ED) Additional Instructions: Please continue wet-to-dry dressings as discussed and follow-up with the surgeon in the next 2 days. Please have sample of stool collected and brought to the hospital for testing as discussed. Please return to emergency room if any symptoms increase or worsen or for any other concerns. Referrals: Radha Zabala III, MD [Primary Care Provider] - 1-2 days Phillip Contreras MD [STAFF PHYSICIAN] - 1-2 days Time of Disposition: 17:10
== END 2017-03-09 17:30 | disposition home or self-care (01) ==
LOC: EC 15:02
DX: K91.89 Other postprocedural complications and disorders of digestive system (principal); E78.5 Hyperlipidemia, unspecified; F41.9 Anxiety disorder, unspecified; F32.9 Major depressive disorder, single episode, unspecified; F17.200 Nicotine dependence, unspecified, uncomplicated; Z85.42 Personal history of malignant neoplasm of other parts of uterus; Z90.49 Acquired absence of other specified parts of digestive tract; Z79.899 Other long term (current) drug therapy; Z88.8 Allergy status to other drugs, medicaments and biological substances; Z91.041 Radiographic dye allergy status
CPT/HCPCS: 99283

== ENCOUNTER → 2017-03-31 | Outpatient (CLI) | payer MEDICARE, BC | END | disposition home or self-care (01) | LOC: LABWHC1 10:51 | PROVIDERS: ATTEND Surgery | DX: A04.72 Enterocolitis due to Clostridium difficile, not specified as recurrent (principal) | CPT/HCPCS: 87324 ==

== ENCOUNTER → 2017-04-13 | Outpatient (CLI) | payer MEDICARE, BC | END | disposition home or self-care (01) | LOC: LABWHC1 10:43 | PROVIDERS: ATTEND Surgery | DX: Z53.9 Procedure and treatment not carried out, unspecified reason (principal) ==

== ENCOUNTER → 2018-05-24 | Outpatient (CLI) | payer MEDICARE ==
[2018-05-24 12:28] VITALS: BP 146/76; PULSE 73; RESP 16
--- NOTE | 2018-05-24 13:16 | P.PAINPG ---
Subjective Progress Note Date: 05/24/18 This is 73 years old female with a chronic history of severe low back pain, and neck pain, with radiation to the upper extremity, 2 years ago we did diagnostic medial branch block lumbar area, and is supposed to do radiofrequency ablation of the medial branch lumbar area, patient was very concerned about potential complication with the radiofrequency, for this reason she did not come for follow-up visit, and it was not done, patient currently complaining of severe neck pain with radiation to the upper extremity associated with numbness and tingling sensation, she denies any motor or sensory deficit, and she is having severe mid back pain and low back pain, but most of the pain currently is in the mid back area with radiation to the left flank. She denies any fever or night sweats, he denies any motor or sensory deficit Objective - Vital Signs Vital signs: Vital Signs Temp Pulse 73 05/24/18 12:14 Resp 16 05/24/18 12:14 BP 146/76 05/24/18 12:14 Pulse Ox 93 L 05/24/18 12:14 Intake & Output 05/23/18 05/24/18 05/24/18 18:59 06:59 18:59 Weight 78.018 kg - Exam Physical Examinations : 1-Constitutiona : Cooperative , not in acute distress . 2-HEENT : nech ; supple , no Lymphadenopathy , normal thyroid size . eyes : no ptosis , no icterus, no photophobia . ENT : normal of hearing , normal oropharynx , no Thrush . 3- Respiratory : Chest clear to auscultations Bilaterally , no wheezing , no Rhonchi . 4- Cardiovascular : regular rate and rhythem , S1 , S2 , no S3 , no S4. 5- Gastrointestinal : abdomen soft , tenderness in the left upper quadrant, and left flank area, bowel sounds , no organomegally . 6- Genitourinary : Defferred . 7- neurologic : Cranial nerve II to XII intact , no focal neurological deffecit . 8-psychatric : alert , oriented X 3 , appropriate affect , intact judgment and insight . 9-Lymphatic : no Lymphadenopathy . 10- musculoskeltal : Cervical Spine motor stregnth in the deltoid and biceps, normal right side , normal Left side motor stregnth biceps and the wrist extensors normal right side ,normal left side . motor stregnth in the triceps muscle . normal Right side , normal Left side deep tendon reflexes normal at the biceps , normal at Brachioradialis , normal at triceps. positive cervical facet loading test . Lumber spine moter stegnth lower extremities , thigh and legs 5/5 Right side , 5/5 Left side deep tendon reflexes : normal Knee Jerk , normal ankle Jerk positive lumber facet Loading Test Range of motion of the lumbar spine Flexion 30 degrees, extension 10 degrees strait leg raising test , positive at degree Fabere test positive RT and positive LT . moderate tenderness over the Sacroiliac joint on the Left sides Assessment and Plan Plan: Assessment and plan= 1-cervical radiculopathy. Patient could benefit from cervical epidural steroid injection, and Neurontin 100 mg twice a day 2-lumbar spondylosis with lumbar facet arthropathy, 3-left upper quadrant and left flank pain , could be secondary GI etiology versus genitourinary etiology, patient advised to follow up with her primary care for evaluation regarding this problem. Time with Patient: Less than 30 PQRS Measure Charge Sheet Measure #130: Documentation of Current Meds in Medical Chart: Patient's medications documented in chart Measure #226: Tobacco Use: Screen & Cessation Intervention: Pt screened for tobacco use AND intervention given Measure #111: Pneumonia Vaccination: Pneumococcal vaccine administered or previously received Measure #47: Advance Care Plan: Advance care planning discussed & documented, pt chose/unable to give Measure #412: Opioid Treatment Agreement: No documentation of signed opioid treatment agreement Measure #408: Opioid Therapy Follow-up Evaluation: Patient had NO f/u eval minimum every 3 months during opioid therapy Measure #317: Preventitive Care & Scrn High Bld Press & F/U: Pre-hypertensive or hypertensive BP documented, pt will f/u with PCP Measure #128: Body Mass Index (BMI) Screening & Follow-up: BMI documented ABOVE normal parameters - f/u documented Measure #131: Pain Assessment & Follow-up: Pain positive & plan documented, Follow-up scheduled Measure #431: Unhealthy Alcohol Use Preventative Care & Scrn: Patient not identified as an unhealthy alcohol user PQRS Narrative: Smoking Status Current every day smoker Do You Want the Pneumonia Vaccine Up to Date Vaccine AT THIS TIME? Blood Pressure 146/76 Pain Intensity [Left Lower 6 Back] Scale Used Numeric (1 - 10) Hx Alcohol Use (MH) No Home Medications: Ambulatory Orders Escitalopram [Lexapro] 40 mg PO DAILY 02/21/15 traZODone HCL 100 mg PO HS 02/25/17 lamoTRIgine [LaMICtal] 150 mg PO DAILY 04/03/17 Aspirin 325 PO Q6HR PRN 05/24/18 Atorvastatin [Lipitor] 10 mg PO DAILY 05/24/18 Bisacodyl [Dulcolax] 5 mg PO DAILY 05/24/18 Controlled Substance Measures - Controlled Substance Measures Is patient prescribed a controlled substance at discharge?: No When asked, does pt state using other controlled substances?: No If prescribed controlled substance>3 days was MAPS reviewed?: No If Rx opioid, was Start Talking consent form obtained?: No If opioid is for acute pain is fill amount 7 days or less?: No Was information provided regarding opioid addiction?: No
== END | disposition home or self-care (01) ==
LOC: PNWHC3 11:54
PROVIDERS: ATTEND Specialist
DX: G89.29 Other chronic pain (principal); M54.2 Cervicalgia; M54.5 Low back pain; M54.12 Radiculopathy, cervical region; M47.816 Spondylosis without myelopathy or radiculopathy, lumbar region; M46.86 Other specified inflammatory spondylopathies, lumbar region; R10.12 Left upper quadrant pain; F17.200 Nicotine dependence, unspecified, uncomplicated; Z71.6 Tobacco abuse counseling; Z79.891 Long term (current) use of opiate analgesic; Z79.82 Long term (current) use of aspirin; Z79.899 Other long term (current) drug therapy
CPT/HCPCS: 99211

== ENCOUNTER → 2018-06-07 | Outpatient (CLI) | payer MEDICARE ==
--- NOTE | 2018-06-07 15:24 | US ---
EXAMINATION TYPE: US kidneys/renal and bladder DATE OF EXAM: 06/07/2018 COMPARISON: MRI lumbar spine November 20, 2015 CLINICAL HISTORY: N28.9 DISORDER OF KIDNEY,N18.3 CKD. CKD stage 3 per patient. Left flank discomfort . EXAM MEASUREMENTS: Right Kidney: 9.7 x 5.0 x 4.6 cm Left Kidney: 10.0 x 4.8 x 4.0 cm Right Kidney: wnl Left Kidney: wnl, possible dromedary hump Bladder: Mildly distended, wnl Bilateral Jets seen There is no evidence for hydronephrosis at this point in time. No nephrolithiasis is seen. No mike s are identified. The urinary bladder is not greatly distended. Bilateral ureteral jets are seen. IMPRESSION: No hydronephrosis is noted bilaterally.
== END | disposition home or self-care (01) ==
LOC: RADUSWWP 14:40
PROVIDERS: ATTEND Family Medicine
DX: N18.3 Chronic kidney disease, stage 3 (moderate) (principal); N28.9 Disorder of kidney and ureter, unspecified
CPT/HCPCS: 76770

== ENCOUNTER 2018-06-20 18:26 | Inpatient (IN) | payer MEDICARE ==
[2018-06-20] MEDS ORDERED: NICOTINE 14MG/24HR PATCH TRANSDERM STA (18:49)
[2018-06-20] MEDS ORDERED: MORPHINE SULFATE 2 MG/ML SYRINGE IVP STA ×2 (18:49→20:38)
[2018-06-20] MEDS ORDERED: DIPH,PERTUS(ACELL)TETVAC-LF 0.5 ML VIAL IM ONE (18:55)
--- NOTE | 2018-06-20 18:55 | ED ---
General Adult HPI - General Chief complaint: Fall Stated complaint: Fall, lt hip pain Time Seen by Provider: 06/20/18 18:40 Source: patient, RN notes reviewed Mode of arrival: EMS Limitations: no limitations - History of Present Illness Initial comments: 73-year-old female presents to the emergency determine for a chief complaint of left hip and elbow pain 1 hour. Patient states she was walking down her daughters cement steps when she missed the last step and fell onto the left hip and elbow. Patient denies hitting her head or back. She denies being on blood thinners. She states most of the pain is in the left hip. She states it feels better when it is bent to about 45. She states she is unable to bear weight on the left hip. Patient has no other complaints at this time including shortness of breath, chest pain, abdominal pain, nausea or vomiting, headache, or visual changes. - Related Data Home Medications Medication Instructions Recorded Confirmed Escitalopram [Lexapro] 40 mg PO DAILY 02/21/15 04/03/17 traZODone HCL 100 mg PO HS 02/25/17 04/03/17 lamoTRIgine [LaMICtal] 150 mg PO DAILY 04/03/17 04/03/17 Aspirin 325 PO Q6HR PRN 05/24/18 Atorvastatin [Lipitor] 10 mg PO DAILY 05/24/18 05/24/18 Bisacodyl [Dulcolax] 5 mg PO DAILY 05/24/18 05/24/18 Allergies Allergy/AdvReac Type Severity Reaction Status Date / Time Iodinated Contrast- Oral and Allergy Unknown AGITATION, Verified 05/25/18 08:27 IV Dye SHAKING [Iodinated Contrast Media - IV Dye] prochlorperazine edisylate Allergy Unknown Verified 05/25/18 08:27 [From Compazine] prochlorperazine maleate Allergy Unknown Verified 05/25/18 08:27 [From Compazine] pregabalin [From Lyrica] AdvReac Confusion Verified 05/25/18 08:27 Review of Systems ROS Statement: Those systems with pertinent positive or pertinent negative responses have been documented in the HPI. ROS Other: All systems not noted in ROS Statement are negative. Past Medical History Past Medical History: Cancer, COPD, GERD/Reflux, Hyperlipidemia, Osteoarthritis (OA) Additional Past Medical History / Comment(s): diverticulitis, IBS, constipation , diarrhea, occ blood in stool, HX OF UTERINE CA. History of Any Multi-Drug Resistant Organisms: C-DIFF Date of last positivie culture/infection: 03/28/17 MDRO Source:: stool Past Surgical History: Bowel Resection, Breast Surgery, Cholecystectomy, Hysterectomy, Tonsillectomy Additional Past Surgical History / Comment(s): LINDA FUNDOPLASTY. 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/2013). jorge breast lumpectomy Past Anesthesia/Blood Transfusion Reactions: Previous Problems w/ Anesthesia, Motion Sickness Additional Past Anesthesia/Blood Transfusion Reaction / Comment(s): had trouble breathing one time when coming out of anesthesia Past Psychological History: Anxiety, Depression Smoking Status: Current every day smoker Past Alcohol Use History: None Reported Past Drug Use History: None Reported - Past Family History Father Family Medical History: Cancer Mother Family Medical History: Cancer Brother(s) Family Medical History: Cancer General Exam - General Exam Comments Initial Comments: Left hip: Patient has extension to neutral position and flexion to 45. Tenderness in the lateral aspect of the left hip, no deformity or step-off palpated. No significant ecchymosis noted at this time. DP pulse 2+, capillary refill less than 2 seconds. Sensation intact in the left lower extremity. Full range of motion of all digits in the left lower extremity. No external or internal rotation noted of the left leg Left elbow: Full range motion of the left elbow. There is a 2 cm skin tear noted to the dorsal left elbow. Capillary refill less than 2 seconds and radial pulse 2+ in the left upper extremity. Sensation intact in the left upper extremity. Production Line strength 5 out of 5. Limitations: no limitations General appearance: alert, in no apparent distress Head exam: Present: atraumatic, normocephalic, normal inspection Eye exam: Present: normal appearance, PERRL, EOMI. Absent: scleral icterus, conjunctival injection, periorbital swelling ENT exam: Present: normal exam, mucous membranes moist Neck exam: Present: normal inspection, full ROM. Absent: tenderness, meningismus, lymphadenopathy Respiratory exam: Present: normal lung sounds bilaterally. Absent: respiratory distress, wheezes, rales, rhonchi, stridor Cardiovascular Exam: Present: regular rate, normal rhythm, normal heart sounds. Absent: systolic murmur, diastolic murmur, rubs, gallop, clicks Course Vital Signs 06/20/18 06/20/18 18:35 20:27 Temperature 98.1 F Pulse Rate 63 68 Respiratory 18 20 Rate Blood Pressure 148/67 136/70 O2 Sat by Pulse 95 98 Oximetry - Reevaluation(s) Reevaluation #1: 06/20/18 18:49 Pain medication ordered for patient. She did receive pain medication and EMS as well EKG Findings - EKG Comments: EKG Findings:: Sinus rhythm, ventricular rate 66, NM interval 110, QTc 438 Medical Decision Making - Medical Decision Making 73-year-old female with a past medical history of uterine cancer with COPD, GERD , hyperlipidemia, osteoarthritis presents to the emergency department for a chief of left hip pain after fall. Patient missed the last step and fell onto the concrete hitting her left hip. Patient denies hitting her head or neck. She denies any back pain. Patient has a small skin tear noted to the left elbow , tetanus given. X-ray of the left hip shows a nondisplaced left femoral neck fracture. X-ray of the left elbow pending. Basic labs, chest x-ray, EKG, urinalysis were ordered for orthopedics. Results pending. Patient states she does not have an orthopedic surgeon. I spoke with Johnathan Amador who is on-call. He accepts the patient as primary admit. He states she will likely have surgery on June 22, states not to make her nothing by mouth. Patient and family member aware of this plan. Patient will be admitted, pain will be controlled with morphine and [place]. Patient refuses Dilaudid at this time stating it does not work for her. - Lab Data Result diagrams: 06/20/18 20:54 06/20/18 20:54 Lab Results 06/20/18 06/20/18 Range/Units 20:54 20:54 WBC 11.4 H (3.8-10.6) k/uL RBC 4.33 (3.80-5.40) m/uL Hgb 13.4 (11.4-16.0) gm/dL Hct 42.3 (34.0-46.0) % MCV 97.8 (80.0-100.0) fL MCH 30.9 (25.0-35.0) pg MCHC 31.6 (31.0-37.0) g/dL RDW 12.5 (11.5-15.5) % Plt Count 178 (150-450) k/uL Neutrophils % 80 % Lymphocytes % 11 % Monocytes % 5 % Eosinophils % 3 % Basophils % 0 % Neutrophils # 9.1 H (1.3-7.7) k/uL Lymphocytes # 1.3 (1.0-4.8) k/uL Monocytes # 0.5 (0-1.0) k/uL Eosinophils # 0.3 (0-0.7) k/uL Basophils # 0.0 (0-0.2) k/uL Sodium 142 (137-145) mmol/L Potassium 4.7 (3.5-5.1) mmol/L Chloride 109 H (98-107) mmol/L Carbon Dioxide 27 (22-30) mmol/L Anion Gap 6 mmol/L BUN 13 (7-17) mg/dL Creatinine 0.92 (0.52-1.04) mg/dL Est GFR (CKD-EPI)AfAm 72 (>60 ml/min/1.73 sqM) Est GFR (CKD-EPI)NonAf 62 (>60 ml/min/1.73 sqM) Glucose 97 (74-99) mg/dL Calcium 8.8 (8.4-10.2) mg/dL Total Bilirubin 0.2 (0.2-1.3) mg/dL AST 15 (14-36) U/L ALT 20 (9-52) U/L Alkaline Phosphatase 81 (38-126) U/L Total Protein 5.7 L (6.3-8.2) g/dL Albumin 3.5 (3.5-5.0) g/dL Disposition Clinical Impression: Hip fracture Disposition: ADMITTED IP TO THIS HOSP Condition: Fair Is patient prescribed a controlled substance at d/c from ED?: No Referrals: Radha Zabala III, MD [Primary Care Provider] - 1-2 days Time of Disposition: 21:41
--- NOTE | 2018-06-20 19:53 | XR ---
EXAMINATION TYPE: XR chest 1V DATE OF EXAM: 06/20/2018 HISTORY: Shortness of breath. COMPARISON: 04/03/2017 TECHNIQUE: Single view of the chest is submitted. FINDINGS: Demonstrated are scattered senescent parenchymal change. There is no evidence for focal infiltrate. The heart is stable. Hilar and mediastinal structures are within normal limits. Degenerative changes are seen of the dorsal spine. IMPRESSION: 1. Chronic changes without evidence for acute pulmonary disease.
--- NOTE | 2018-06-20 20:20 | XR ---
EXAMINATION TYPE: XR Hip Complete LT DATE OF EXAM: 06/20/2018 CLINICAL HISTORY: pain TECHNIQUE: AP and frogleg views of the left hip are obtained. COMPARISON: None. FINDINGS: There is a nondisplaced left femoral neck fracture. No additional fractures identified. Mil d degenerative narrowing left hip joint space. The overlying soft tissue appears unremarkable. IMPRESSION: 1. There is a nondisplaced left femoral neck fracture. No additional fractures identified.
[2018-06-20] MEDS ORDERED: MORPHINE SULFATE/PF 10MG/10ML VL IVP STA (20:35)
[2018-06-20 21:16] LABS: Basophils % (A) 0 %; Eosinophils # (A) 0.3 k/uL (0-0.7); Eosinophils % (A) 3 %; HCT 42.3 % (34.0-46.0); HGB 13.4 gm/dL (11.4-16.0); Lymphocytes # (A) 1.3 k/uL (1.0-4.8); Lymphocytes % (A) 11 %; MCH 30.9 pg (25.0-35.0); MCHC 31.6 g/dL (31.0-37.0); MCV 97.8 fL (80.0-100.0); Mean Platelet Volume 8.1; Monocytes # (A) 0.5 k/uL (0-1.0); Monocytes % (A) 5 %; Neutrophils # (A) 9.1 k/uL (1.3-7.7); Neutrophils % (A) 80 %; Platelet Count 178 k/uL (150-450); RBC 4.33 m/uL (3.80-5.40); RDW 12.5 % (11.5-15.5); WBC 11.4 k/uL (3.8-10.6)
[2018-06-20 21:24] LABS: Albumin 3.5 g/dL (3.5-5.0); Calcium 8.8 mg/dL (8.4-10.2); Potassium 4.7 mmol/L (3.5-5.1); Total Bilirubin 0.2 mg/dL (0.2-1.3); Total Protein 5.7 g/dL (6.3-8.2)
[2018-06-20] MEDS ORDERED: NALOXONE 0.4 MG/ML 1 ML VIAL IV PRN (21:33)
[2018-06-20] MEDS ORDERED: ONDANSETRON 4 MG/2 ML VIAL IVP PRN ×2 (21:33→22:47)
[2018-06-20] MEDS: MORPHINE SULFATE 4 MG/ML SYRINGE IV PRN (22:30)
[2018-06-20] MEDS: SODIUM CHLORIDE 0.9% 1,000 ML IV SCH (22:31)
[2018-06-20] MEDS ORDERED: CALCIUM CARBONATE 500 MG CHEWABLE PO PRN (22:43)
[2018-06-20] MEDS ORDERED: DOCUSATE 100 MG CAP PO PRN (22:43)
[2018-06-20] MEDS: traZODone HCL 50 MG TAB PO SCH (23:24)
[2018-06-20] MEDS: GABAPENTIN 100 MG CAP PO SCH (23:24)
[2018-06-21] MEDS: MORPHINE SULFATE 4 MG/ML SYRINGE IV PRN ×4 (01:32→17:18)
[2018-06-21] MEDS: HYDROcodone/APAP 5-325MG 1 EACH TAB PO PRN ×6 (01:37→22:33)
[2018-06-21 08:25] LABS: Amorphous Sediment,Urine Rare /hpf; Appearance,Urine Cloudy (Clear); Bilirubin,Urine Negative (Negative); Blood,Urine Large (Negative); Color,Urine Yellow; Glucose,Urine (UA) Negative (Negative); Ketones,Urine Negative (Negative); Leukocyte Esterase,Urine Moderate (Negative); Mucus,Urine Occasional /hpf; Nitrite,Urine Negative (Negative); Protein,Urine 1+ (Negative); RBC,Urine 118 /hpf (0-5); Specific Gravity,Urine 1.022 (1.001-1.035); Urobilinogen,Urine <2.0 mg/dL (<2.0); WBC,Urine 13 /hpf (0-5)
[2018-06-21] MEDS: ATORVASTATIN 10 MG TAB PO SCH (08:37)
[2018-06-21] MEDS: lamoTRIgine 100 MG TAB PO SCH (08:38)
[2018-06-21] MEDS: GABAPENTIN 100 MG CAP PO SCH ×2 (08:38→22:09)
[2018-06-21] MEDS: ESCITALOPRAM 20 MG TAB PO SCH ×2 (08:38→22:08)
[2018-06-21] MEDS: SODIUM CHLORIDE 0.9% 1,000 ML IV SCH ×3 (08:39→22:11)
--- NOTE | 2018-06-21 11:47 | P.HPOR ---
History of Present Illness H&P Date: 06/21/18 Chief Complaint: Left hip pain status post fall Patient is pleasant 73-year-old female who sustained an injury yesterday when she fell on the cement falling down one step yesterday. She scraped her on her left arm and had acute pain in her left hip upon her fall. She denies any loss of consciousness. She denies hitting her head. She said she had some pain at her back and toward her left side in the past but not pain in the same way. She has had treatment with pain management for her back in the past. This was performed here [facility] with pain management. She says she is normally a community ambulator but uses a walker off and on. She has recently been going to [employer] for exercise a few times a week over the past couple months. She said that helped her back to some degree. She denies any antecedent pain in her groin. She denies any weakness at her legs. She does admit to some tingling in her left lower extremity diffusely at the lateral and posterior aspect of her left leg. Review of Systems As per HPI. She denies any chest pain or shortness breath. She has any changes in bowel bladder function. She denies any nausea or vomiting. She admits to smoking regularly for her over 40 years Past Medical History Past Medical History: Cancer, COPD, GERD/Reflux, Hyperlipidemia, Osteoarthritis (OA) Additional Past Medical History / Comment(s): Positive smoking history for greater than 40 years diverticulitis, IBS, constipation, diarrhea, occ blood in stool, HX OF UTERINE CA. History of Any Multi-Drug Resistant Organisms: C-DIFF Date of last positivie culture/infection: 03/28/17 MDRO Source:: stool Past Surgical History: Bowel Resection, Breast Surgery, Cholecystectomy, Hysterectomy, Tonsillectomy Additional Past Surgical History / Comment(s): LINDA FUNDOPLASTY. 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/2013). jorge breast lumpectomy Past Anesthesia/Blood Transfusion Reactions: Previous Problems w/ Anesthesia, Motion Sickness Additional Past Anesthesia/Blood Transfusion Reaction / Comment(s): had trouble breathing one time when coming out of anesthesia Past Psychological History: Anxiety, Depression Smoking Status: Current every day smoker Past Alcohol Use History: None Reported Additional Past Alcohol Use History / Comment(s): quit smoking cigarettes 6 yrs ago-started smoking age 15. currently using e cigarettes Past Drug Use History: None Reported - Past Family History Father Family Medical History: Cancer Mother Family Medical History: Cancer Brother(s) Family Medical History: Cancer Medications and Allergies Home Medications Medication Instructions Recorded Confirmed Type Escitalopram [Lexapro] 20 mg PO BID 02/21/15 06/20/18 History traZODone HCL 100 mg PO HS 02/25/17 06/20/18 History lamoTRIgine [LaMICtal] 150 mg PO DAILY 04/03/17 06/20/18 History Aspirin 325 mg PO DAILY PRN 05/24/18 06/20/18 History Atorvastatin [Lipitor] 10 mg PO DAILY 05/24/18 06/20/18 History Calcium Carbonate [Tums] 500 mg PO TID PRN 06/20/18 06/20/18 History Docusate [Colace] 100 mg PO DAILY PRN 06/20/18 06/20/18 History Gabapentin [Neurontin] 100 mg PO BID 06/20/18 06/20/18 History Allergies Allergy/AdvReac Type Severity Reaction Status Date / Time Iodinated Contrast- Oral and Allergy Unknown AGITATION, Verified 06/20/18 21:52 IV Dye SHAKING [Iodinated Contrast Media - IV Dye] prochlorperazine edisylate Allergy Unknown Verified 06/20/18 21:52 [From Compazine] prochlorperazine maleate Allergy Unknown Verified 06/20/18 21:52 [From Compazine] pregabalin [From Lyrica] AdvReac Confusion Verified 06/20/18 21:52 Physical Examination Osteopathic Statement: *. No significant issues noted on an osteopathic structural exam other than those noted in the History and Physical/Consult. - Fracture left hip Location of fracture: At her left hip she has pain with any sort of motion. Appearance: other (At her left hip she has pain with any sort of motion. There is no wounds lacerations or abrasions. She has sustained dorsal flexion plantar flexion and EHL intact in her bilateral ankle feet and toes.Calf soft nontender. She is tender to palpation over her left hip. Her abdomen soft nontender chest has good excursion deep inspection expiration her back is nontender palpation her neck has good range of motion. Her upper extremities have good active and passive range of motion without pain. Sensory is intact. HEENT is normocephalic atraumatic. Her left upper extremity has some superficial abrasions but they're clean and clear.) Results - Labs Labs: Abnormal Lab Results - Last 24 Hours (Table) 06/20/18 06/20/18 06/20/18 Range/Units 06:10 20:54 20:54 WBC 11.4 H (3.8-10.6) k/uL Neutrophils # 9.1 H (1.3-7.7) k/uL Chloride 109 H (98-107) mmol/L Total Protein 5.7 L (6.3-8.2) g/dL Urine Appearance Cloudy H (Clear) Urine Protein 1+ H (Negative) Urine Blood Large H (Negative) Ur Leukocyte Esterase Moderate H (Negative) Urine RBC 118 H (0-5) /hpf Urine WBC 13 H (0-5) /hpf Urine WBC Clumps Many H (None) /hpf Amorphous Sediment Rare H (None) /hpf Urine Mucus Occasional H (None) /hpf H & H 06/20/18 Range/Units 20:54 Hgb 13.4 (11.4-16.0) gm/dL Hct 42.3 (34.0-46.0) % Result Diagrams: 06/20/18 20:54 06/20/18 20:54 - Diagnostic results Hip x-ray: report reviewed, image reviewed (Imaging of her pelvis and left hip show a femoral neck fracture with minimal displacement. There is no obvious bony erosion. Acetabulum appears to be intact) Assessment and Plan Assessment: Acute left hip femoral neck fracture status post fall Left hip pain and inability to ambulate due to hip fracture Has a smoking history History of diverticulitis Plan: Acute left hip femoral neck fracture status post fall Left hip pain and inability to ambulate due to hip fracture Has a smoking history History of diverticulitis In regards to the patient's left hip she will need surgical intervention to allow her the best chance of regaining mobility and ambulation. I think that she would be best served with a left hip hemiarthroplasty. This would give her the best time to start mobilizing and weightbearing as soon as possible and give her the ability to start to regain her motion and ambulation status. We discussed the nature of her injury and the different treatment options at length at bedside with her and with her family present. We discussed the risk of bleeding risk of infection risk and need for further surgery risk of decreased or loss of motion loss of function malunion nonunion hardware failure nerve damage as well as the fact that surgery may not relieve her symptoms and she may have permanent issues with her left hip due to her injury. We discussed this at length. I answered her questions to the best of my ability in a language that she can understand and she elected to proceed with surgical intervention for left hip hemiarthroplasty and she'll sign informed consent. We will plan for surgical intervention for her hip hemiarthroplasty tomorrow. She will be nothing by mouth after midnight. We are awaiting medical clearance which should be appropriate for her. Time with Patient: Greater than 30
--- NOTE | 2018-06-21 12:12 | P.CONS ---
History of Present Illness - Reason for Consult Medical clearance - History of Present Illness Patient is a very pleasant 73-year-old female came in after she had a mechanical fall found to have a femoral neck fracture. Patient denied any history of coronary disease doesn't have any history of congestive heart failure denied any active chest pain there are some nonspecific ST-T wave changes. Patient denied any fevers chills nausea vomiting patient denied any short of breath used to be a smoker still use vapors quit smoking about 5 years ago. Patient is not dependent on ADLs and IADLs functional status is greater than 4 METs P patient denied any dysuria suprapubic pain patient does have leukocytosis from fracture no fever. Review of Systems REVIEW OF SYSTEMS: CONSTITUTIONAL: No fever, no malaise, no fatigue. HEENT: No recent visual problems or hearing problems. Denied any sore throat. CARDIOVASCULAR: No chest pain, orthopnea, PND, no palpitations, no syncope. PULMONARY: No shortness of breath, no cough, no hemoptysis. GASTROINTESTINAL: No diarrhea, no nausea, no vomiting, no abdominal pain. NEUROLOGICAL: No headaches, no weakness, no numbness. HEMATOLOGICAL: Denies any bleeding or petechiae. GENITOURINARY: Denies any burning micturition, frequency, or urgency. MUSCULOSKELETAL/RHEUMATOLOGICAL: In the right hip area where she had a fracture ENDOCRINE: Denies any polyuria or polydipsia. The rest of the 14-point review of systems is negative. Past Medical History Past Medical History: Cancer, COPD, GERD/Reflux, Hyperlipidemia, Osteoarthritis (OA) Additional Past Medical History / Comment(s): Positive smoking history for greater than 40 years diverticulitis, IBS, constipation, diarrhea, occ blood in stool, HX OF UTERINE CA. History of Any Multi-Drug Resistant Organisms: C-DIFF Year Discovered:: 03/28/17 MDRO Source:: stool Past Surgical History: Bowel Resection, Breast Surgery, Cholecystectomy, Hysterectomy, Tonsillectomy Additional Past Surgical History / Comment(s): LINDA FUNDOPLASTY. 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/2013). jorge breast lumpectomy Past Anesthesia/Blood Transfusion Reactions: Previous Problems w/ Anesthesia, Motion Sickness Additional Past Anesthesia/Blood Transfusion Reaction / Comm: had trouble breathing one time when coming out of anesthesia Past Psychological History: Anxiety, Depression Smoking Status: Current every day smoker Past Alcohol Use History: None Reported Additional Past Alcohol Use History / Comment(s): quit smoking cigarettes 6 yrs ago-started smoking age 15. currently using e cigarettes Past Drug Use History: None Reported - Past Family History Father Family Medical History: Cancer Mother Family Medical History: Cancer Brother(s) Family Medical History: Cancer Medications and Allergies Home Medications Medication Instructions Recorded Confirmed Type Escitalopram [Lexapro] 20 mg PO BID 02/21/15 06/20/18 History traZODone HCL 100 mg PO HS 02/25/17 06/20/18 History lamoTRIgine [LaMICtal] 150 mg PO DAILY 04/03/17 06/20/18 History Aspirin 325 mg PO DAILY PRN 05/24/18 06/20/18 History Atorvastatin [Lipitor] 10 mg PO DAILY 05/24/18 06/20/18 History Calcium Carbonate [Tums] 500 mg PO TID PRN 06/20/18 06/20/18 History Docusate [Colace] 100 mg PO DAILY PRN 06/20/18 06/20/18 History Gabapentin [Neurontin] 100 mg PO BID 06/20/18 06/20/18 History Allergies Allergy/AdvReac Type Severity Reaction Status Date / Time Iodinated Contrast- Oral and Allergy Unknown AGITATION, Verified 06/20/18 21:52 IV Dye SHAKING [Iodinated Contrast Media - IV Dye] prochlorperazine edisylate Allergy Unknown Verified 06/20/18 21:52 [From Compazine] prochlorperazine maleate Allergy Unknown Verified 06/20/18 21:52 [From Compazine] pregabalin [From Lyrica] AdvReac Confusion Verified 06/20/18 21:52 Physical Exam Vitals: Vital Signs Temp Pulse Pulse Resp BP BP Pulse Ox 06/21/18 07:00 98.1 F 69 17 112/63 92 L 06/21/18 00:58 98.1 F 63 18 146/64 90 L 06/20/18 23:00 98.1 F 63 18 146/64 90 L 06/20/18 21:54 98 F 69 20 133/62 98 06/20/18 20:27 68 20 136/70 98 06/20/18 18:35 98.1 F 63 18 148/67 95 Intake and Output 06/20/18 06/21/1818 22:59 06:59 14:59 Intake Total 237 Output Total 600 Balance 237 -600 Intake: Oral 237 Output: Urine 600 Other: Voiding Method Indwelling Catheter Indwelling Catheter Weight 78.018 kg PHYSICAL EXAMINATION: GENERAL: The patient is alert and oriented x3, not in any acute distress. Well developed, well nourished. HEENT: Pupils are round and equally reacting to light. EOMI. No scleral icterus. No conjunctival pallor. Normocephalic, atraumatic. No pharyngeal erythema. No thyromegaly. CARDIOVASCULAR: S1 and S2 present. No murmurs, rubs, or gallops. PULMONARY: Chest is clear to auscultation, no wheezing or crackles. ABDOMEN: Soft, nontender, nondistended, normoactive bowel sounds. No palpable organomegaly. MUSCULOSKELETAL: Deferred to orthopedic surgery EXTREMITIES: No cyanosis, clubbing, or pedal edema. NEUROLOGICAL: Gross neurological examination did not reveal any focal deficits. SKIN: No rashes. Results CBC & Chem 7: 06/20/18 20:54 06/20/18 20:54 Labs: Abnormal Lab Results - Last 24 Hours (Table) 06/20/18 06/20/18 06/20/18 Range/Units 06:10 20:54 20:54 WBC 11.4 H (3.8-10.6) k/uL Neutrophils # 9.1 H (1.3-7.7) k/uL Chloride 109 H (98-107) mmol/L Total Protein 5.7 L (6.3-8.2) g/dL Urine Appearance Cloudy H (Clear) Urine Protein 1+ H (Negative) Urine Blood Large H (Negative) Ur Leukocyte Esterase Moderate H (Negative) Urine RBC 118 H (0-5) /hpf Urine WBC 13 H (0-5) /hpf Urine WBC Clumps Many H (None) /hpf Amorphous Sediment Rare H (None) /hpf Urine Mucus Occasional H (None) /hpf Assessment and Plan Plan: -Medical clearance for right hip fracture: Open reduction internal fixation. Patient is low risk the only risk being her smoking history and low normal oxygen saturation at rest. Same thing was discussed with the patient patient should be able to get the surgery done and I do not expect any complicated intraoperative or postoperative course. And management and DVT prophylaxis as per primary service -Asymptomatic bacteriuria: I do not believe patient has urinary tract infection and patient will not require any antibiotics for this but patient will get preoperative antibiotics anyways -Nicotine abuse: Counseling was provided Gastroesophageal reflux disease -Hyperlipidemia -Depression For her chronic medical problems appropriate home medications will be resumed
[2018-06-21] MEDS: traZODone HCL 50 MG TAB PO SCH (22:09)
[2018-06-22] MEDS: MORPHINE SULFATE 4 MG/ML SYRINGE IV PRN ×2 (00:49→05:28)
[2018-06-22] MEDS ORDERED: ceFAZolin IN SWFI 2 GM/20 ML SYRINGE IVP ONE (05:00)
[2018-06-22] MEDS: HYDROcodone/APAP 5-325MG 1 EACH TAB PO PRN (07:46)
[2018-06-22] MEDS ORDERED: IV FLUID CONTINUATION 1,000 ML IV ONE (09:27)
[2018-06-22] MEDS: ATORVASTATIN 10 MG TAB PO SCH (10:20)
[2018-06-22] MEDS: ESCITALOPRAM 20 MG TAB PO SCH ×2 (10:20→21:59)
[2018-06-22] MEDS: GABAPENTIN 100 MG CAP PO SCH ×2 (10:21→21:59)
[2018-06-22] MEDS: lamoTRIgine 100 MG TAB PO SCH (10:21)
[2018-06-22] MEDS ORDERED: diphenhydrAMINE 50 MG/ML 1 ML VIAL IVP PRN (11:43)
[2018-06-22] MEDS ORDERED: NALOXONE 0.4 MG/ML 1 ML VIAL IV PRN ×2 (11:43→13:15)
[2018-06-22] MEDS ORDERED: MORPHINE SULFATE 2 MG/ML SYRINGE IVP PRN (11:43)
[2018-06-22] MEDS ORDERED: ONDANSETRON 4 MG/2 ML VIAL IVP PRN (11:43)
[2018-06-22] MEDS ORDERED: ceFAZolin 3,000 MG in SODIUM CHLORIDE 0.9% IRRIGATIO 3,000 ML IRRIGATION ONE (12:15)
[2018-06-22] MEDS ORDERED: LACTATED RINGERS 1,000 ML IV ONE (12:23)
[2018-06-22] MEDS ORDERED: HYDROmorphone 1 MG/ML 1 ML SYRINGE IVP PRN (13:15)
[2018-06-22] MEDS ORDERED: BENZOCAINE/MENTHOL LOZENG 1 EACH LOZENGE MUCOUS MEM PRN (13:15)
[2018-06-22] MEDS ORDERED: MAGNESIUM HYDROXIDE 2,400 MG/10 ML CUP PO PRN (13:15)
--- NOTE | 2018-06-22 13:23 | P.OP ---
Date of Procedure: 06/22/18 Preoperative Diagnosis: Acute left hip femoral neck fracture, due to fall Postoperative Diagnosis: Same Anesthesia: spinal Pathology: other (Femoral neck and head to pathology) Condition: stable Disposition: PACU Description of Procedure: Preoperative diagnosis: Femoral neck fracture on the left, acute traumatic due to a fall Postoperative diagnosis: Same Procedure: Left Hip hemiarthroplasty Surgeon: Dr. Amish Tadoe.: Shailesh Borja who is present that the entire the case persistence during positioning dissection exposure placement of hardware and closure Anesthesia: Spinal per Dr. Bowman Estimated blood loss: 100 mL Components implanted: [employer] bipolar fracture stem size 1 with a 44 head and a 0 neck Disposition: To recovery room in good stable condition Operative indications The patient sustained a injury and suffered a femoral neck fracture which was slightly angulated with some comminution at the site. We were involved in the case in regard to his hip fracture. She is normally a community and they're occasionally uses a walker at home and community. She did not have any other injuries and was having severe pain due to her injury. She had acute left dermal neck fracture due to her fall. After evaluation it was determined that they would be a candidate for hip hemiarthroplasty via surgical intervention. This would give them the best chance of mobilization and ambulation. We discussed the range of treatment options from conservative to surgical. They elected proceed with surgical intervention. We answered their questions to the best of our ability healing which they can understand. They signed an informed consent. Operative summary After obtaining informed consent evaluation by anesthesia, preoperative evaluation and clearance for medical service, the patient was identified and prepped Ramesh area and the surgical site was marked. There brought to the operating room where the given appropriate anesthesia by the anesthesia department in standard fashion without any complications. Once the anesthesia was established we were able to position the patient. There placed in a lateral decubitus position with the operative side up on the left being careful to pad any bony prominences and pressure points and place a excellent roll appropriately. The airway and C-spine was monitored continuously. Once patient was well positioned lower extremity was prepped and draped in normal standard sterile fashion. An appropriate keystone protocol and timeout was completed and were able to proceed with surgery. A curvilinear incision was established over the greater trochanter at the left side. Dissection was taken down to the tensor fascia carlos which was split in line with its fibers and extended proximally into the gluteal fibers. A Charnley retractor was established. The trochanteric bursa was inflamed and removed. I was able to then dissect down off the posterior aspect of the greater trochanter taking the piriformis tendon and the posterior capsule in one full-thickness flap and tacking it with suture. This expose the fracture at the femoral neck which was easily identified. A guide was used to establish the appropriate femoral neck cut and a bone- cutting saw was used to establish the femoral neck cut and good alignment and good position. All the bony fragments were removed. I was then able to use a corkscrew device to remove the femoral head from the acetabulum. Any loose fragments in the acetabulum were removed. The femoral head was measured for the appropriate size implant of a 44 and then passed off for pathology. Appropriate retractors were placed and I established a lateral box cut chisel. I then used a starting reamer to establish the femoral canal area I then sequentially reamed with sequential reamers until we had good bony chatter distally. With this we then started to broach with sequential broaches to the appropriate sized to we had good fit and fill. There is no evidence any fracture in the possible femur. With the appropriate size broach well seated and stable I placed the trial neck and head. A gentle reduction was performed to get good reduction. The hip was taken through a good range of motion and found to be stable in the position of sleep and through a range of motion. It had a good shuck test. We were able to then dislocate the trial prosthesis. The broach was found to remain stable. It was then removed. The wound was copiously irrigated and suctioned dry with pulsatile lavage. The appropriate size femoral stem was chosen and positioned and placed in good alignment and good position with excellent fit and fill seated appropriately over the calcar. It was checked and found to be stable. The trunnion was cleaned and dried the femoral head was then positioned over the femoral neck malleted in position checked and found to be stable. The hip prosthesis was then gently reduced back into the acetabulum and found to have excellent position and excellent stability and excellent range of motion with stability. There is no evidence of dislocation or fracture. The wound was copiously irrigated and suctioned dry. We are able to proceed with closure. The piriformis and posterior capsule were reapproximated to the posterior aspect of the greater trochanter with transosseous stitches. The wound was irrigated and suctioned dry. The fascia was closed with #2 Quill for watertight closure. Subcutaneous tissue was irrigated and suctioned dry. Subcu tissues closed with 2-0 Vicryl subcuticular tissue was closed with 3.0 Quill. Wound is clean and dried and dressed with Dermabond Adaptic 4 x 4's ABDs and tape. Drapes were broken down, the hip was held in stable position, and an abduction pillow was placed. The patient was then transferred back to their hospital bed being careful to maintain the hip and C-spine alignment and airway. Once stable to patient was transferred back to the postanesthesia care unit to be readmitted for pain control and DVT prophylaxis medical management and monitoring and mobilization we will continue follow patient closely throughout their postoperative course.
--- NOTE | 2018-06-22 14:48 | XR ---
Left hip HISTORY: Status post left hemiarthroplasty Single frontal view of the left hip Patient is status post left hip arthroplasty. There is anatomic alignment. Lucency present in the sof t tissues compatible with postop state. IMPRESSION: Orthopedic follow-up.
[2018-06-22] MEDS ORDERED: diphenhydrAMINE 25 MG CAP PO PRN (15:16)
--- NOTE | 2018-06-22 16:19 | P.PN ---
Subjective Patient is going for the left hip arthroplasty for a left femoral neck fracture. No overnight events.Constitutional: Denied any fatigue denied any fever. Cardio vascular: denied any chest pain, palpitations Gastrointestinal denied any nausea vomiting Pulmonary: Denied any shortness of breath cough Neurologic denied any new focal deficits All inpatient medications were reviewed and appropriate changes in these medications as dictated in the interval history and assessment and plan. Objective - Vital Signs Vital signs: Vital Signs Temp 99.3 F 06/22/18 15:53 Pulse 83 06/22/18 15:53 Resp 16 06/22/18 15:53 BP 105/57 06/22/18 15:53 Pulse Ox 96 06/22/18 15:53 Intake & Output 06/21/18 06/22/18 06/22/18 18:59 06:59 18:59 Intake Total 2120 551 Output Total 600 350 Balance 1520 201 Intake: IV 551 Intake, IV Titration 1920 Amount Sodium Chloride 0.9% 1, 1920 000 ml @ 120 mls/hr IV . [id number] [facility] Rx#:[id number] Oral 200 Output: Urine 600 300 Estimated Blood Loss 50 Other: Voiding Method Indwelling Catheter Indwelling Catheter Indwelling Catheter - Exam PHYSICAL EXAMINATION: GENERAL: The patient is alert and oriented x3, not in any acute distress. Well developed, well nourished. HEENT: Pupils are round and equally reacting to light. EOMI. No scleral icterus. No conjunctival pallor. Normocephalic, atraumatic. No pharyngeal erythema. No thyromegaly. CARDIOVASCULAR: S1 and S2 present. No murmurs, rubs, or gallops. PULMONARY: Chest is clear to auscultation, no wheezing or crackles. ABDOMEN: Soft, nontender, nondistended, normoactive bowel sounds. No palpable organomegaly. MUSCULOSKELETAL: Deferred to orthopedic surgery EXTREMITIES: No cyanosis, clubbing, or pedal edema. NEUROLOGICAL: Gross neurological examination did not reveal any focal deficits. SKIN: No rashes. - Labs CBC & Chem 7: 06/20/18 20:54 06/20/18 20:54 Assessment and Plan Plan: -Medical clearance for right hip fracture: Open reduction internal fixation. Patient is going for left hip arthroplasty today -Asymptomatic bacteriuria: I do not believe patient has urinary tract infection and patient will not require any antibiotics for this. -Nicotine abuse: Counseling was provided Gastroesophageal reflux disease -Hyperlipidemia -Depression For her chronic medical problems appropriate home medications will be resumed
[2018-06-22] MEDS: SODIUM CHLORIDE 0.9% 1,000 ML IV SCH ×4 (17:21→22:15)
[2018-06-22 18:33] LABS: Basophils % (A) 0 %; Eosinophils # (A) 0.3 k/uL (0-0.7); Eosinophils % (A) 3 %; HCT 38.2 % (34.0-46.0); HGB 11.9 gm/dL (11.4-16.0); Lymphocytes # (A) 0.7 k/uL (1.0-4.8); Lymphocytes % (A) 7 %; MCH 31.3 pg (25.0-35.0); MCHC 31.2 g/dL (31.0-37.0); MCV 100.2 fL (80.0-100.0); Mean Platelet Volume 8.4; Monocytes # (A) 0.8 k/uL (0-1.0); Monocytes % (A) 7 %; Neutrophils # (A) 8.5 k/uL (1.3-7.7); Neutrophils % (A) 81 %; Platelet Count 117 k/uL (150-450); RBC 3.82 m/uL (3.80-5.40); RDW 12.4 % (11.5-15.5); WBC 10.6 k/uL (3.8-10.6)
[2018-06-22] MEDS: traZODone HCL 50 MG TAB PO SCH (21:59)
[2018-06-22] MEDS: ASPIRIN 325 MG TAB PO SCH (21:59)
[2018-06-22] MEDS: ceFAZolin IN SWFI 2 GM/20 ML SYRINGE IVP SCH (22:01)
[2018-06-23] MEDS: SODIUM CHLORIDE 0.9% 1,000 ML IV SCH ×3 (04:24→18:58)
[2018-06-23] MEDS ORDERED: ceFAZolin IN SWFI 2 GM/20 ML SYRINGE IVP SCH (06:00)
[2018-06-23] MEDS: ceFAZolin IN SWFI 2 GM/20 ML SYRINGE IVP SCH (06:02)
--- NOTE | 2018-06-23 07:05 | P.PN ---
Progress Note - Text Progress Note Date: 06/23/18 Postop day 1 Status post left hip arthroplasty under spinal anesthesia Patient denies any complaints of headache or itching Spinal site looks dry and intact Plan of care Primary team to manage pain Anesthesia sign off
--- NOTE | 2018-06-23 08:55 | P.PN ---
Subjective Progress Note Date: 06/23/18 Principal diagnosis: Status post left hip hemiarthroplasty This is a 73 year-old female post with left hip hemiarthroplasty. This is post- op day 1. The patient was evaluated at the bedside today. The patient denies nausea, vomiting, abdominal pain, shortness of breath, and chest pain this morning. She states her pain is controlled at this time. The patient has not been up with physical therapy. Objective - Vital Signs Vital signs: Vital Signs Temp 99.6 F 06/23/18 07:04 Pulse 76 06/23/18 07:04 Resp 20 06/23/18 07:04 BP 129/66 06/23/18 07:04 Pulse Ox 94 L 06/23/18 07:04 Intake & Output 06/22/18 06/23/18 06/23/18 18:59 06:59 18:59 Intake Total 551 1450 420 Output Total 650 1400 Balance -99 50 420 Intake: IV 551 Intake, IV Titration 1200 Amount Sodium Chloride 0.9% 1, 1200 000 ml @ 75 mls/hr IV . [id number] [facility] Rx#:[id number] Oral 250 420 Output: Urine 600 1400 Uretheral (Ramesh) 300 Estimated Blood Loss 50 Other: Voiding Method Indwelling Catheter Indwelling Catheter - Exam The patient does not appear in acute distress. Alert and orientated x3. Dressing is clean dry and intact. Incision appears fine with no erythema or active drainage. Calf is soft and nontender. Good foot and ankle motion without difficulty. Sensation and circulatory status is intact. - Labs CBC & Chem 7: 06/22/18 17:53 06/20/18 20:54 Labs: Abnormal Lab Results - Last 24 Hours (Table) 06/22/18 Range/Units 17:53 MCV 100.2 H (80.0-100.0) fL Plt Count 117 L (150-450) k/uL Neutrophils # 8.5 H (1.3-7.7) k/uL Lymphocytes # 0.7 L (1.0-4.8) k/uL Assessment and Plan (1) Status post hip hemiarthroplasty Current Visit: Yes Status: Acute Code(s): Z96.649 - PRESENCE OF UNSPECIFIED ARTIFICIAL HIP JOINT SNOMED Code(s): 613541255 (2) Hip fracture Current Visit: Yes Status: Acute Code(s): S72.009A - FRACTURE OF UNSP PART OF NECK OF UNSP FEMUR, INIT SNOMED Code(s): 515855865 Plan: 1. Continue pain control 2. Anticoagulation with Aspirin BID 3. Start physical therapy and ambulation 4. Anticipate discharge to skilled rehab after insurance verification and medical clearance.
[2018-06-23] MEDS: ASPIRIN 325 MG TAB PO SCH ×2 (09:24→20:16)
[2018-06-23] MEDS: ESCITALOPRAM 20 MG TAB PO SCH ×2 (09:24→20:16)
[2018-06-23] MEDS: lamoTRIgine 100 MG TAB PO SCH (09:24)
[2018-06-23] MEDS: SENNOSIDES-DOCUSATE SODIUM 1 EACH TAB PO SCH (09:25)
[2018-06-23] MEDS: ATORVASTATIN 10 MG TAB PO SCH (09:25)
[2018-06-23] MEDS: GABAPENTIN 100 MG CAP PO SCH ×2 (09:25→20:16)
[2018-06-23] MEDS: HYDROcodone/APAP 5-325MG 1 EACH TAB PO PRN ×2 (09:26→20:16)
[2018-06-23 09:47] LABS: Basophils % (A) 0 %; Eosinophils # (A) 0.3 k/uL (0-0.7); Eosinophils % (A) 3 %; HCT 35.6 % (34.0-46.0); HGB 11.8 gm/dL (11.4-16.0); Lymphocytes # (A) 0.5 k/uL (1.0-4.8); Lymphocytes % (A) 5 %; MCH 32.1 pg (25.0-35.0); MCV 97.4 fL (80.0-100.0); Mean Platelet Volume 8.8; Monocytes # (A) 0.6 k/uL (0-1.0); Monocytes % (A) 6 %; Neutrophils # (A) 8.4 k/uL (1.3-7.7); Neutrophils % (A) 84 %; Platelet Count 114 k/uL (150-450); RBC 3.66 m/uL (3.80-5.40); RDW 12.3 % (11.5-15.5); WBC 9.9 k/uL (3.8-10.6)
--- NOTE | 2018-06-23 12:38 | P.PN ---
Subjective Patient is going for the left hip arthroplasty for a left femoral neck fracture. No overnight events.Constitutional: Denied any fatigue denied any fever. 06/23/2018 we'll try and use Toradol and avoid morphine and Dilaudid Patient is postoperative day 1, did have a bowel movement Cardio vascular: denied any chest pain, palpitations Gastrointestinal denied any nausea vomiting Pulmonary: Denied any shortness of breath cough Neurologic denied any new focal deficits All inpatient medications were reviewed and appropriate changes in these medications as dictated in the interval history and assessment and plan. Objective - Vital Signs Vital signs: Vital Signs Temp 99.6 F 06/23/18 07:04 Pulse 76 06/23/18 07:04 Resp 20 06/23/18 07:04 BP 129/66 06/23/18 07:04 Pulse Ox 94 L 06/23/18 07:04 Intake & Output 06/22/18 06/23/18 06/23/18 18:59 06:59 18:59 Intake Total 551 1450 420 Output Total 650 1400 Balance -99 50 420 Intake: IV 551 Intake, IV Titration 1200 Amount Sodium Chloride 0.9% 1, 1200 000 ml @ 75 mls/hr IV . [id number] [facility] Rx#:[id number] Oral 250 420 Output: Urine 600 1400 Uretheral (Ramesh) 300 Estimated Blood Loss 50 Other: Voiding Method Indwelling Catheter Indwelling Catheter Indwelling Catheter - Exam PHYSICAL EXAMINATION: GENERAL: The patient is alert and oriented x3, not in any acute distress. Well developed, well nourished. HEENT: Pupils are round and equally reacting to light. EOMI. No scleral icterus. No conjunctival pallor. Normocephalic, atraumatic. No pharyngeal erythema. No thyromegaly. CARDIOVASCULAR: S1 and S2 present. No murmurs, rubs, or gallops. PULMONARY: Chest is clear to auscultation, no wheezing or crackles. ABDOMEN: Soft, nontender, nondistended, normoactive bowel sounds. No palpable organomegaly. MUSCULOSKELETAL: Deferred to orthopedic surgery EXTREMITIES: No cyanosis, clubbing, or pedal edema. NEUROLOGICAL: Gross neurological examination did not reveal any focal deficits. SKIN: No rashes. - Labs CBC & Chem 7: 06/23/18 09:28 06/20/18 20:54 Labs: Abnormal Lab Results - Last 24 Hours (Table) 06/22/18 06/23/18 Range/Units 17:53 09:28 RBC 3.66 L (3.80-5.40) m/uL MCV 100.2 H (80.0-100.0) fL Plt Count 117 L 114 L (150-450) k/uL Neutrophils # 8.5 H 8.4 H (1.3-7.7) k/uL Lymphocytes # 0.7 L 0.5 L (1.0-4.8) k/uL Assessment and Plan Plan: -right hip fracture: status postOpen reduction internal fixation. Patient is going for left hip arthroplasty today -Asymptomatic bacteriuria: I do not believe patient has urinary tract infection and patient will not require any antibiotics for this. -Nicotine abuse: Counseling was provided Gastroesophageal reflux disease -Hyperlipidemia -Depression For her chronic medical problems appropriate home medications will be resumed
[2018-06-23] MEDS: KETOROLAC 30 MG/ML 1 ML VIAL IVP PRN ×2 (13:58→20:15)
[2018-06-23] MEDS: MULTIVITAMINS, THERA 1 EACH TAB PO SCH (13:58)
[2018-06-23] MEDS: traZODone HCL 50 MG TAB PO SCH (20:16)
[2018-06-24] MEDS: SODIUM CHLORIDE 0.9% 1,000 ML IV SCH ×2 (02:53→11:05)
[2018-06-24] MEDS: HYDROcodone/APAP 5-325MG 1 EACH TAB PO PRN ×3 (04:06→16:29)
[2018-06-24 07:52] VITALS: BP 106/66; PULSE 81; RESP 19; TEMP 99.3
[2018-06-24 07:56] LABS: Basophils % (A) 0 %; Eosinophils # (A) 0.3 k/uL (0-0.7); Eosinophils % (A) 4 %; HCT 30.5 % (34.0-46.0); Lymphocytes # (A) 0.5 k/uL (1.0-4.8); Lymphocytes % (A) 6 %; MCH 31.5 pg (25.0-35.0); MCHC 32.3 g/dL (31.0-37.0); MCV 97.4 fL (80.0-100.0); Mean Platelet Volume 8.7; Monocytes # (A) 0.5 k/uL (0-1.0); Monocytes % (A) 6 %; Neutrophils # (A) 7.3 k/uL (1.3-7.7); Neutrophils % (A) 84 %; Platelet Count 110 k/uL (150-450); RBC 3.14 m/uL (3.80-5.40); RDW 12.5 % (11.5-15.5); WBC 8.7 k/uL (3.8-10.6)
[2018-06-24 08:03] LABS: HGB 9.9 gm/dL (11.4-16.0)
[2018-06-24 08:04] LABS: Anion Gap 3 mmol/L; Blood Urea Nitrogen 8 mg/dL (7-17); Calcium 7.7 mg/dL (8.4-10.2); Carbon Dioxide 26 mmol/L (22-30); Chloride 109 mmol/L (98-107); Glucose 97 mg/dL (74-99); Potassium 3.8 mmol/L (3.5-5.1); Sodium 138 mmol/L (137-145)
[2018-06-24] MEDS: ESCITALOPRAM 20 MG TAB PO SCH (08:10)
[2018-06-24] MEDS: MULTIVITAMINS, THERA 1 EACH TAB PO SCH (08:10)
[2018-06-24] MEDS: ASPIRIN 325 MG TAB PO SCH (08:10)
[2018-06-24] MEDS: GABAPENTIN 100 MG CAP PO SCH (08:10)
[2018-06-24] MEDS: lamoTRIgine 100 MG TAB PO SCH (08:10)
[2018-06-24] MEDS: SENNOSIDES-DOCUSATE SODIUM 1 EACH TAB PO SCH (08:11)
[2018-06-24] MEDS: ATORVASTATIN 10 MG TAB PO SCH (08:11)
--- NOTE | 2018-06-24 08:12 | P.DS ---
Providers Date of admission: 06/20/18 21:37 Attending physician: Fran Wellington Consults: 06/20/18 21:33 Consult Physician Stat Consulting Provider: Sadie Huang Reason/Comments: left hip fracture Do you want consulting provider notified?: Yes Primary care physician: Radha Pantoja Vj - Discharge Diagnosis(es) (1) Hip fracture Current Visit: Yes Status: Acute (2) Status post hip hemiarthroplasty Current Visit: Yes Status: Acute Hospital Course: This is a 73-year-old female who presented on 06/20/2018 after falling and sustaining injury to the left hip. On exam and x-ray in the emergency department she was found to have a hip fracture. The pt is admitted to our service for surgical intervention and care. The patient is taken to surgery for hemiarthroplasty of the left hip. The procedure is performed without complication or sequelae. The patient is doing well postoperatively. Vital signs are stable on postop day #2. There are no new complaints or concerns. The patient is discharged to inpatient rehab pending medical clearance today. Please refer to the [facility] rec for accurate list of medications. Patient Condition at Discharge: Fair Plan - Discharge Summary Discharge Rx Participant: No New Discharge Prescriptions: New Aspirin 325 mg PO BID #60 tab HYDROcodone/APAP 5-325MG [[place] 5-325] 1 - 2 each PO Q4-6H PRN #50 tab PRN Reason: Pain Sennosides-Docusate Sodium [Senokot-S] 1 tab PO BID #60 tablet No Action Escitalopram [Lexapro] 20 mg PO BID traZODone HCL 100 mg PO HS lamoTRIgine [LaMICtal] 150 mg PO DAILY Atorvastatin [Lipitor] 10 mg PO DAILY Aspirin 325 mg PO DAILY PRN PRN Reason: Pain Docusate [Colace] 100 mg PO DAILY PRN PRN Reason: Constipation Calcium Carbonate [Tums] 500 mg PO TID PRN PRN Reason: Gi Upset Gabapentin [Neurontin] 100 mg PO BID Discharge Medication List Escitalopram [Lexapro] 20 mg PO BID 02/21/15 [History] traZODone HCL 100 mg PO HS 02/25/17 [History] lamoTRIgine [LaMICtal] 150 mg PO DAILY 04/03/17 [History] Aspirin 325 mg PO DAILY PRN 05/24/18 [History] Atorvastatin [Lipitor] 10 mg PO DAILY 05/24/18 [History] Calcium Carbonate [Tums] 500 mg PO TID PRN 06/20/18 [History] Docusate [Colace] 100 mg PO DAILY PRN 06/20/18 [History] Gabapentin [Neurontin] 100 mg PO BID 06/20/18 [History] Aspirin 325 mg PO BID #60 tab 06/24/18 [Rx] HYDROcodone/APAP 5-325MG [[place] 5-325] 1 - 2 each PO Q4-6H PRN #50 tab 06/24/18 [Rx] Sennosides-Docusate Sodium [Senokot-S] 1 tab PO BID #60 tablet 06/24/18 [Rx] Follow up Appointment(s)/Referral(s): Radha Zabala III, MD [Primary Care Provider] - 1-2 days Shailesh Amador PAC [PHYSICIAN CELL RELINER] - 2 Weeks (Patient may follow-up with Shailesh Amador PA-C or Dr. Jeramy Wellington at [facility] in 2-3 weeks following discharge. ) Activity/Diet/Wound Care/Special Instructions: 1. Weight-bear as tolerated on the lower extremity; patient may work with physical therapy to increase mobility and ambulation 2. May apply ice over the wound site for comfort and support as needed 3. Abductor pillow to remain in place at all times except while working with therapy and while sitting in a bedside chair 4. Keep left hip surgical incision site clean, dry, and intact 5. Patient may shower without a dressing intact over the left hip incision site if incision stays dry over the next 72 hours 6. Take medications as prescribed Discharge Disposition: TRANSFER TO SNF/ECF
--- NOTE | 2018-06-24 15:56 | P.PN ---
Subjective Patient is going for the left hip arthroplasty for a left femoral neck fracture. No overnight events.Constitutional: Denied any fatigue denied any fever. 06/23/2018 we'll try and use Toradol and avoid morphine and Dilaudid Patient is postoperative day 1, did have a bowel movement 06/24/2018 No overnight events patient is being discharged today I did review discharge medication reconciliation appropriate changes were made. Cardio vascular: denied any chest pain, palpitations Gastrointestinal denied any nausea vomiting Pulmonary: Denied any shortness of breath cough Neurologic denied any new focal deficits All inpatient medications were reviewed and appropriate changes in these medications as dictated in the interval history and assessment and plan. Objective - Vital Signs Vital signs: Vital Signs Temp 99.3 F 06/24/18 07:21 Pulse 81 06/24/18 07:21 Resp 19 06/24/18 07:21 BP 106/66 06/24/18 07:21 Pulse Ox 91 L 06/24/18 07:21 Intake & Output 06/23/18 06/24/18 06/24/18 18:59 06:59 18:59 Intake Total 1020 1177.5 Output Total 950 450 Balance 70 727.5 Intake: Intake, IV Titration 600 937.5 Amount Sodium Chloride 0.9% 1, 600 937.5 000 ml @ 75 mls/hr IV . [id number] [facility] Rx#:[id number] Oral 420 240 Output: Urine 950 450 Uretheral (Ramesh) 950 250 Other: Voiding Method Indwelling Catheter # Voids 1 1 - Exam PHYSICAL EXAMINATION: GENERAL: The patient is alert and oriented x3, not in any acute distress. Well developed, well nourished. HEENT: Pupils are round and equally reacting to light. EOMI. No scleral icterus. No conjunctival pallor. Normocephalic, atraumatic. No pharyngeal erythema. No thyromegaly. CARDIOVASCULAR: S1 and S2 present. No murmurs, rubs, or gallops. PULMONARY: Chest is clear to auscultation, no wheezing or crackles. ABDOMEN: Soft, nontender, nondistended, normoactive bowel sounds. No palpable organomegaly. MUSCULOSKELETAL: Deferred to orthopedic surgery EXTREMITIES: No cyanosis, clubbing, or pedal edema. NEUROLOGICAL: Gross neurological examination did not reveal any focal deficits. SKIN: No rashes. - Labs CBC & Chem 7: 06/24/18 06:30 06/24/18 06:30 Labs: Abnormal Lab Results - Last 24 Hours (Table) 06/24/18 06/24/18 Range/Units 06:30 06:30 RBC 3.14 L (3.80-5.40) m/uL Hgb 9.9 L D (11.4-16.0) gm/dL Hct 30.5 L (34.0-46.0) % Plt Count 110 L (150-450) k/uL Lymphocytes # 0.5 L (1.0-4.8) k/uL Chloride 109 H (98-107) mmol/L Calcium 7.7 L (8.4-10.2) mg/dL Assessment and Plan Plan: -right hip fracture: status postOpen reduction internal fixation. Patient is going for left hip arthroplasty today. Patient is medically cleared to be discharged -Asymptomatic bacteriuria: I do not believe patient has urinary tract infection and patient will not require any antibiotics for this. -Nicotine abuse: Counseling was provided Gastroesophageal reflux disease -Hyperlipidemia -Depression For her chronic medical problems appropriate home medications will be resumed
== END 2018-06-24 16:05 | DRG 470 ==
LOC: EC 18:26 → 4SSUR 21:37
PROVIDERS: ADMIT Orthopaedic Surgery Orthopaedic Surgery of the Spine; ATTEND Orthopaedic Surgery Orthopaedic Surgery of the Spine
PROC: 0SRS0JA Replacement of Left Hip Joint, Femoral Surface with Synthetic Substitute, Uncemented, Open Approach (ICD-10-PCS; principal; 2018-06-22 08:30)
DX: S72.002A Fracture of unspecified part of neck of left femur, initial encounter for closed fracture (principal); J44.9 Chronic obstructive pulmonary disease, unspecified; R82.71 Bacteriuria; E78.5 Hyperlipidemia, unspecified; F17.200 Nicotine dependence, unspecified, uncomplicated; F32.9 Major depressive disorder, single episode, unspecified; F41.9 Anxiety disorder, unspecified; K21.9 Gastro-esophageal reflux disease without esophagitis; K58.9 Irritable bowel syndrome, unspecified; S51.012A Laceration without foreign body of left elbow, initial encounter; M19.90 Unspecified osteoarthritis, unspecified site; K57.90 Diverticulosis of intestine, part unspecified, without perforation or abscess without bleeding; Z79.82 Long term (current) use of aspirin; Z79.899 Other long term (current) drug therapy; Z85.42 Personal history of malignant neoplasm of other parts of uterus; Z90.710 Acquired absence of both cervix and uterus; Z90.49 Acquired absence of other specified parts of digestive tract; Z88.8 Allergy status to other drugs, medicaments and biological substances; Z91.041 Radiographic dye allergy status; Z71.6 Tobacco abuse counseling; Z80.9 Family history of malignant neoplasm, unspecified; W10.8XXA Fall (on) (from) other stairs and steps, initial encounter; Y92.9 Unspecified place or not applicable
CPT/HCPCS: 36415; 71045; 73501; 73502; 80048; 80053; 81001; 85025; 88305; 88311; 90471; 90715; 93005; 96374; 96376; 99285

== ENCOUNTER → 2018-06-29 | Outpatient (CLI) | payer MEDICARE ==
--- NOTE | 2018-06-29 18:07 | US ---
EXAMINATION TYPE: US venous doppler duplex LE LT DATE OF EXAM: 06/29/2018 5:51 PM COMPARISON: NONE CLINICAL HISTORY: I80.9 Thrombosis and phlebitis. Patient fell on 06/20/2018-- fx ankle and broke hip . Had hip replacement 06/22/2018. No redness. No swelling. No blood thinners. SIDE PERFORMED: Left TECHNIQUE: The lower extremity deep venous system is examined utilizing real time linear array sonog adriana with graded compression, doppler sonography and color-flow sonography. VESSELS IMAGED: External Iliac Vein (EIV) Common Femoral Vein Deep Femoral Vein Greater Saphenous Vein * Femoral Vein Popliteal Vein Small Saphenous Vein * Proximal Calf Veins (* superficial vessels) Left Leg: Negative for DVT. Edema seen posterior knee. IMPRESSION: No evidence of deep venous thrombosis in the left leg.
== END ==
LOC: RADUSMAIN 17:28
PROVIDERS: ATTEND Orthopaedic Surgery
DX: M79.672 Pain in left foot (principal)

== ENCOUNTER → 2019-05-30 | Outpatient (CLI) | payer MEDICARE ==
--- NOTE | 2019-05-30 09:52 | MR ---
EXAMINATION TYPE: MR cervical spine wo con DATE OF EXAM: 05/30/2019 COMPARISON: 11/20/2015 HISTORY: Neck pain into jorge upper extremities CONTRAST: Performed utilizing 0 mL intravenous Gadavist gadolinium contrast. TECHNIQUE: Multiplanar multiecho imaging on a 3.0 Gabrielle magnet is performed through the cervical spin e. FINDINGS: The craniovertebral junction is normal. Vertebral body alignment is normal. C7-T1: No focal disc herniation or significant disc bulge is evident. No spinal canal stenosis or n eural foraminal stenosis is present. C6-7: No focal disc herniation or significant disc bulge is evident. Uncovertebral joint hypertrophy is present greater on the right with moderate right and mild left foraminal stenosis. C5-6: Endplate changes including spurring and associated disc material have mild anterior thecal sac compression. Cord contact is present. The spinal canal stenosis is present. Uncovertebral joint hyper trophy is moderate right foraminal stenosis.. C4-5: Right paracentral disc bulge and moderate anterior thecal sac compression. This likely has some right exiting nerve root displacement or impingement. Correlate with the radicular symptoms. No cord contact or spinal canal stenosis is present. Uncovertebral joint hypertrophy is present with moderat e left and moderate to severe right foraminal stenosis.. C3-4: Mild disc bulge is present with a right paracentral mild thecal sac compression. No cord contac t is evident. No spinal canal stenosis or neural foraminal stenosis is present. C2-3: No focal disc herniation or significant disc bulge is evident. No spinal canal stenosis or cassandra ral foraminal stenosis is present. COMPARISON: Findings appear progressive over the interval especially noting right paracentral disc bu lge at C4-5 and endplate and disc bulge changes C5-6. IMPRESSIONS: 1. Right paracentral disc bulging C4-5 with moderate anterior thecal sac compression appears to have some nerve root impingement or displacement on the right. Correlate the radicular symptoms. 2. Endplate changes with associated disc material at C5-6 has mild anterior thecal sac compression. 3. Uncovertebral joint hypertrophy with some disc material contributing to foraminal stenosis discuss ed above. This appears greatest on the right at C4-5.
== END | disposition home or self-care (01) ==
LOC: RADMRIMAIN 06:54
PROVIDERS: ATTEND Family Medicine
DX: M48.02 Spinal stenosis, cervical region (principal); M50.121 Cervical disc disorder at C4-C5 level with radiculopathy
CPT/HCPCS: 72141

== ENCOUNTER → 2019-12-15 | Outpatient (CLI) | payer MEDICARE ==
--- NOTE | 2019-12-15 17:05 | CT ---
EXAMINATION TYPE: CT abdomen pelvis w con DATE OF EXAM: 12/15/2019 COMPARISON: 02/28/2010 HISTORY: Pelvic pain with diarrhea CT DLP: 1023.8 mGycm CONTRAST: CT scan of the abdomen and pelvis is performed with Oral Contrast and with IV Contrast, patient injec keith with 100 mL of Isovue 300. FINDINGS: LUNG BASES-: No visible nodule. No infiltrate. LIVER/GB: Cholecystectomy clips. Simple hepatic cysts stable. No space occupying hepatic lesion. B iliary tree is of normal caliber. PANCREAS: No inflammation. No distinct mass. SPLEEN: No splenic enlargement. No lesion seen. ADRENALS: No nodule. No thickening. KIDNEYS/BLADDER: No hydronephrosis. No nephrolithiasis. No distinct renal mass. Urinary bladder g rossly unremarkable. BOWEL: Normal appendix. Postsurgical changes involving the sigmoid colon. No evidence for recurrent o r residual mass. No evidence for inflammatory process. No evidence for free air or abscess. GENITAL ORGANS: No gross abnormality. LYMPH NODES: No greater than 1cm abdominal or pelvic lymph nodes are appreciated. AORTA: No significant abnormality. OSSEOUS STRUCTURES: No significant abnormality is seen. OTHER: No significant additional abnormality is seen. IMPRESSION: 1. No acute process seen to account for the patient's symptoms.
== END | disposition home or self-care (01) ==
LOC: RADCTMAIN 14:37
PROVIDERS: ATTEND Family Medicine
DX: R10.30 Lower abdominal pain, unspecified (principal); Z13.89 Encounter for screening for other disorder
CPT/HCPCS: 82565; 84520; 74177; 36415; Q9967

== ENCOUNTER → 2019-12-21 | Outpatient (CLI) | payer MEDICARE ==
[2019-12-21 15:16] LABS: Basophils % (A) 0 %; Eosinophils # (A) 0.2 k/uL (0-0.7); Eosinophils % (A) 2 %; HCT 46.4 % (34.0-46.0); HGB 14.9 gm/dL (11.4-16.0); Lymphocytes # (A) 1.3 k/uL (1.0-4.8); Lymphocytes % (A) 14 %; MCH 32.2 pg (25.0-35.0); MCV 100.7 fL (80.0-100.0); Mean Platelet Volume 9.3; Monocytes # (A) 0.5 k/uL (0-1.0); Monocytes % (A) 5 %; Neutrophils # (A) 7.5 k/uL (1.3-7.7); Neutrophils % (A) 77 %; Platelet Count 162 k/uL (150-450); RBC 4.61 m/uL (3.80-5.40); RDW 12.7 % (11.5-15.5); WBC 9.7 k/uL (3.8-10.6)
[2019-12-21 18:44] LABS: African American GFR (CKD) 64.3 (60.0-200.0); Calcium 9.2 mg/dL (8.7-10.3); Non-African American GFR(CKD) 55.5 (60.0-200.0); Potassium 4.7 mmol/L (3.5-5.5)
== END | disposition home or self-care (01) ==
LOC: LABWHC1 14:18
PROVIDERS: ATTEND Nurse Practitioner Family
DX: R19.7 Diarrhea, unspecified (principal)
CPT/HCPCS: 36415; 80048; 85025; 87045; 87046; 87324; 87328; 87329

== ENCOUNTER 2021-09-05 12:13 | Emergency (ER) | payer MEDICARE ==
[2021-09-05] MEDS ORDERED: SODIUM CHLORIDE 0.9% 1,000 ML IV STA (12:50)
--- NOTE | 2021-09-05 13:07 | ED ---
General Adult HPI - General Chief complaint: Abdominal Pain Stated complaint: Possible Bowel obstruction, Nausea, Cramps Time Seen by Provider: 09/05/21 12:32 Source: patient, RN notes reviewed Mode of arrival: wheelchair Limitations: no limitations - History of Present Illness Initial comments: Patient 76-year-old female presenting to the emergency room today with a chief complaint of abdominal discomfort. Patient does admit that she is a long histo ry of constipation. She states over the last few weeks she's had very few bowel movements. She was given magnesium citrate was able to have a small bowel movement approximately one week ago. Patient states she still having increased pain throughout the abdomen. She states she's had a very nauseous since had a decreased appetite. The patient denies any other complaints or symptoms currently. Patient denies any recent fever, chills, shortness of breath, chest pain, back pain, nausea or vomiting, numbness or tingling, headaches or visual changes, or any other complaints. - Related Data Home Medications Medication Instructions Recorded Confirmed Escitalopram [Lexapro] 20 mg PO BID 02/21/15 06/20/18 traZODone HCL 100 mg PO HS 02/25/17 06/20/18 lamoTRIgine [LaMICtal] 150 mg PO DAILY 04/03/17 06/20/18 Atorvastatin [Lipitor] 10 mg PO DAILY 05/24/18 06/20/18 Calcium Carbonate [Tums] 500 mg PO TID PRN 06/20/18 06/20/18 Docusate [Colace] 100 mg PO DAILY PRN 06/20/18 06/20/18 Gabapentin [Neurontin] 100 mg PO BID 06/20/18 06/20/18 Previous Rx's Medication Instructions Recorded Aspirin 325 mg PO BID #60 tab 06/24/18 HYDROcodone/APAP 5-325MG [[place] 1 - 2 each PO Q4-6H PRN #50 tab 06/24/18 5-325] Sennosides-Docusate Sodium 1 tab PO BID #60 tablet 06/24/18 [Senokot-S] Allergies Allergy/AdvReac Type Severity Reaction Status Date / Time Iodinated Contrast Media Allergy Unknown AGITATION, Verified 09/05/21 12:18 [Iodinated Contrast Media - SHAKING IV Dye] prochlorperazine edisylate Allergy Unknown Verified 09/05/21 12:18 [From Compazine] prochlorperazine maleate Allergy Unknown Verified 09/05/21 12:18 [From Compazine] pregabalin [From Lyrica] AdvReac Confusion Verified 09/05/21 12:18 Review of Systems ROS Statement: Those systems with pertinent positive or pertinent negative responses have been documented in the HPI. ROS Other: All systems not noted in ROS Statement are negative. Past Medical History Past Medical History: Cancer, COPD, GERD/Reflux, Hyperlipidemia, Osteoarthritis (OA) Additional Past Medical History / Comment(s): Positive smoking history for greater than 40 years diverticulitis, IBS, constipation, diarrhea, occ blood in stool, HX OF UTERINE CA. History of Any Multi-Drug Resistant Organisms: C-DIFF Date of last positivie culture/infection: 03/28/17 MDRO Source:: stool Past Surgical History: Bowel Resection, Breast Surgery, Cholecystectomy, Hysterectomy, Tonsillectomy Additional Past Surgical History / Comment(s): LINDA FUNDOPLASTY. 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/2013). jorge breast lumpectomy Past Anesthesia/Blood Transfusion Reactions: Previous Problems w/ Anesthesia, Motion Sickness Additional Past Anesthesia/Blood Transfusion Reaction / Comment(s): had trouble breathing one time when coming out of anesthesia Past Psychological History: Anxiety, Depression Smoking Status: Current every day smoker Past Alcohol Use History: None Reported Past Drug Use History: None Reported - Past Family History Father Family Medical History: Cancer Mother Family Medical History: Cancer Brother(s) Family Medical History: Cancer General Exam - General Exam Comments Initial Comments: General: The patient is awake and alert, in no distress, and does not appear acutely ill. Eye: extra-ocular movements are intact. No nystagmus. There is normal c onjunctiva bilaterally. No signs of icterus. Ears, nose, mouth and throat: There are moist mucous membranes and no oral lesions. Neck: The neck is supple. Cardiovascular: There is a regular rate and rhythm. No murmur, rub or gallop is appreciated. Respiratory: Lungs are clear to auscultation, respirations are non-labored, breath sounds are equal. No wheezes, stridor, rales, or rhonchi. Gastrointestinal: Abdomen soft on palpation. Mild tenderness in the both right and left lower quadrant. No rebound, guarding or CVA tenderness. Musculoskeletal: Normal ROM, no tenderness. Strength 5/5. Sensation intact. Neurological: A&O x 3. CN II-XII intact, There are no obvious motor or sensory deficits. Coordination appears grossly intact. Speech is normal. Skin: Skin is warm and dry and no rashes or lesions are noted. Psychiatric: Cooperative, appropriate mood & affect, normal judgment. Limitations: no limitations Course Vital Signs 09/05/21 09/05/21 09/05/21 12:19 13:18 15:33 Temperature 97.6 F Pulse Rate 86 60 58 L Respiratory 20 18 18 Rate Blood Pressure 140/82 151/70 147/90 O2 Sat by Pulse 98 96 96 Oximetry EKG Findings - EKG Comments: EKG Findings:: EKG performed: 1303. Normal sinus rhythm at 62 bpm. NM interval 131. QRS 84. QT/QTc 379/384. No acute ST changes. Medical Decision Making - Medical Decision Making Patient reexamined she is resting comfortably. Her abdomen is soft on palpation. Her CT the abdomen and pelvis is reviewed and there is no significant abnormality. Patient's labs were reviewed and are unremarkable. Patient does admit that he having a long history of constipation. States she's tried stool softeners and laxatives at home with little relief. Patient given enema here the emergency room. Is advised to follow with family physician. - Lab Data Result diagrams: 09/05/21 13:03 09/05/21 13:03 Lab Results 09/05/21 09/05/21 09/05/21 Range/Units 13:03 13:03 13:03 WBC 9.1 (3.8-10.6) k/uL RBC 4.39 (3.80-5.40) m/uL Hgb 14.2 (11.4-16.0) gm/dL Hct 43.4 (34.0-46.0) % MCV 98.9 (80.0-100.0) fL MCH 32.3 (25.0-35.0) pg MCHC 32.6 (31.0-37.0) g/dL RDW 12.1 (11.5-15.5) % Plt Count 179 (150-450) k/uL MPV 8.5 Neutrophils % 82 % Lymphocytes % 10 % Monocytes % 5 % Eosinophils % 2 % Basophils % 1 % Neutrophils # 7.4 (1.3-7.7) k/uL Lymphocytes # 0.9 L (1.0-4.8) k/uL Monocytes # 0.5 (0-1.0) k/uL Eosinophils # 0.2 (0-0.7) k/uL Basophils # 0.1 (0-0.2) k/uL Sodium 138 (137-145) mmol/L Potassium 4.5 (3.5-5.1) mmol/L Chloride 108 H (98-107) mmol/L Carbon Dioxide 22 (22-30) mmol/L Anion Gap 8 mmol/L BUN 9 (7-17) mg/dL Creatinine 1.00 (0.52-1.04) mg/dL Est GFR (CKD-EPI)AfAm 64 (>60 ml/min/1.73 sqM) Est GFR (CKD-EPI)NonAf 55 (>60 ml/min/1.73 sqM) Glucose 92 (74-99) mg/dL Plasma Lactic Acid Ankur 1.1 (0.7-2.0) mmol/L Calcium 8.9 (8.4-10.2) mg/dL Total Bilirubin 0.7 (0.2-1.3) mg/dL AST 17 (14-36) U/L ALT 7 (4-34) U/L Alkaline Phosphatase 63 (38-126) U/L Troponin I (0.000-0.034) ng/mL Total Protein 6.1 L (6.3-8.2) g/dL Albumin 3.5 (3.5-5.0) g/dL Lipase 26 (23-300) U/L 09/05/21 Range/Units 13:18 WBC (3.8-10.6) k/uL RBC (3.80-5.40) m/uL Hgb (11.4-16.0) gm/dL Hct (34.0-46.0) % MCV (80.0-100.0) fL MCH (25.0-35.0) pg MCHC (31.0-37.0) g/dL RDW (11.5-15.5) % Plt Count (150-450) k/uL MPV Neutrophils % % Lymphocytes % % Monocytes % % Eosinophils % % Basophils % % Neutrophils # (1.3-7.7) k/uL Lymphocytes # (1.0-4.8) k/uL Monocytes # (0-1.0) k/uL Eosinophils # (0-0.7) k/uL Basophils # (0-0.2) k/uL Sodium (137-145) mmol/L Potassium (3.5-5.1) mmol/L Chloride (98-107) mmol/L Carbon Dioxide (22-30) mmol/L Anion Gap mmol/L BUN (7-17) mg/dL Creatinine (0.52-1.04) mg/dL Est GFR (CKD-EPI)AfAm (>60 ml/min/1.73 sqM) Est GFR (CKD-EPI)NonAf (>60 ml/min/1.73 sqM) Glucose (74-99) mg/dL Plasma Lactic Acid Ankur (0.7-2.0) mmol/L Calcium (8.4-10.2) mg/dL Total Bilirubin (0.2-1.3) mg/dL AST (14-36) U/L ALT (4-34) U/L Alkaline Phosphatase (38-126) U/L Troponin I <0.012 (0.000-0.034) ng/mL Total Protein (6.3-8.2) g/dL Albumin (3.5-5.0) g/dL Lipase (23-300) U/L Disposition Clinical Impression: Constipation Disposition: HOME SELF-CARE Condition: Good Additional Instructions: Please follow-up with family doctor in the next 2 days of symptoms have not improved. Please return to emergency room if the symptoms increase or worsen or for any other concerns. Is patient prescribed a controlled substance at d/c from ED?: No If prescribed controlled substance>3 days was MAPS reviewed?: Prescribed <3 Days Referrals: Radha Zabala III, MD [Primary Care Provider] - 1-2 days
[2021-09-05 13:20] VITALS: RESP 18
[2021-09-05 13:46] LABS: Basophils # (A) 0.1 k/uL (0-0.2); Basophils % (A) 1 %; Eosinophils # (A) 0.2 k/uL (0-0.7); Eosinophils % (A) 2 %; HCT 43.4 % (34.0-46.0); HGB 14.2 gm/dL (11.4-16.0); Lymphocytes # (A) 0.9 k/uL (1.0-4.8); Lymphocytes % (A) 10 %; MCH 32.3 pg (25.0-35.0); MCHC 32.6 g/dL (31.0-37.0); MCV 98.9 fL (80.0-100.0); Mean Platelet Volume 8.5; Monocytes # (A) 0.5 k/uL (0-1.0); Monocytes % (A) 5 %; Neutrophils # (A) 7.4 k/uL (1.3-7.7); Neutrophils % (A) 82 %; Platelet Count 179 k/uL (150-450); RBC 4.39 m/uL (3.80-5.40); RDW 12.1 % (11.5-15.5); WBC 9.1 k/uL (3.8-10.6)
[2021-09-05 13:58] LABS: Albumin 3.5 g/dL (3.5-5.0); Calcium 8.9 mg/dL (8.4-10.2); Total Bilirubin 0.7 mg/dL (0.2-1.3); Total Protein 6.1 g/dL (6.3-8.2)
[2021-09-05 14:03] LABS: Potassium 4.5 mmol/L (3.5-5.1)
[2021-09-05] MEDS ORDERED: FAMOTIDINE 20 MG/2 ML VIAL IV STA (15:21)
--- NOTE | 2021-09-05 15:31 | CT ---
EXAMINATION TYPE: CT abdomen pelvis w con DATE OF EXAM: 09/05/2021 COMPARISON: CT dated 12/15/2019 HISTORY: Abdominal pain and burning. CT DLP: 1216.4 mGycm Automated exposure control for dose reduction was used. TECHNIQUE: Helical acquisition of images was performed from the lung bases through the pelvis. CONTRAST: Performed without Oral Contrast and with IV Contrast, patient injected with 80 mL of Isovue 300. FINDINGS: LUNG BASES: Left lung base dependent densities with thin atelectasis. Suspected cardiomegaly. LIVER/GB: Multiple variable sized hepatic cysts. Previous cholecystectomy. PANCREAS: Slightly atrophic. SPLEEN: No significant abnormality is seen. ADRENALS: No significant abnormality is seen. KIDNEYS: No significant abnormality is seen. FREE AIR: No free air is visualized. RETROPERITONEAL ADENOPATHY: None visualized REPRODUCTIVE ORGANS: Previous hysterectomy. No gross adnexal mass. URINARY BLADDER: Nondistended and obscured by left hip prosthesis. PELVIC ADENOPATHY: None visualized. OSSEOUS STRUCTURES: Left hip arthroplasty. No aggressive bone lesion. BOWEL: Questionable very small sliding hiatal hernia, otherwise unremarkable nondistended stomach, d uodenum and small bowel. No evidence of bowel obstruction. Unremarkable colonic anastomosis in the pe lvis. Normal appendix. OTHER: Aortic atherosclerotic calcifications. 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 Retroaortic left renal vein. Severe atherosclerotic calcification of the commo n iliac arteries yet patent distally. No sizable ascites. IMPRESSION: NO DEFINITE ACUTE ABNORMALITY SEEN IN THE ABDOMEN OR THE PELVIS. INCIDENTAL FINDINGS DESCRIBED ABO VE.
[2021-09-05] MEDS ORDERED: ONDANSETRON 4 MG/2 ML VIAL IVP STA (15:45)
[2021-09-05] MEDS ORDERED: MAGNESIUM CITRATE 296 ML BOTTLE PO ONE (15:47)
[2021-09-05 16:45] VITALS: BP 135/71; PULSE 70; TEMP 98.1
== END 2021-09-05 16:56 | disposition home or self-care (01) ==
LOC: EC 12:13
DX: K59.00 Constipation, unspecified (principal); J44.9 Chronic obstructive pulmonary disease, unspecified; K21.9 Gastro-esophageal reflux disease without esophagitis; E78.5 Hyperlipidemia, unspecified; M19.90 Unspecified osteoarthritis, unspecified site; F41.9 Anxiety disorder, unspecified; F32.A Depression, unspecified; F17.200 Nicotine dependence, unspecified, uncomplicated; Z79.82 Long term (current) use of aspirin; Z85.41 Personal history of malignant neoplasm of cervix uteri; Z90.49 Acquired absence of other specified parts of digestive tract; Z90.710 Acquired absence of both cervix and uterus
CPT/HCPCS: 99284; 96374; 96375; 96361; 36415; 93005; 80053; 83605; 83690; 84484; 85025; 74177; J2405; Q9967

== ENCOUNTER → 2021-09-06 | Outpatient (CLI) | payer MEDICARE ==
--- NOTE | 2021-09-06 15:26 | MR ---
EXAMINATION TYPE: MR brain wo con DATE OF EXAM: 09/06/2021 COMPARISON: 12/08/2012 HISTORY: Amnesia Multiplanar multi echo imaging of the brain without contrast. There is cerebral cortical atrophy. There is no mass effect or midline shift. There is no sign of int racranial hemorrhage. Diffusion images show no evidence of an acute infarct. On the T2 and FLAIR images there are numerous foci of abnormal increased signal in the periventricula r white matter. This is more severe in the right internal capsule. There are coalescent areas measuri ng up to 12 mm in thickness. There is 4 mm focus of increased signal in the brainstem on the right an d left lateral aspect at the level of the cerebellar peduncles. Corpus callosum is intact. Sella turc ica appears normal. There is no evidence of orbital mass. IMPRESSION: Moderate white matter signal changes likely related to microvascular ischemia and have progressed com pared to the old exam. No evidence of cortical infarct. No acute infarct.
== END | disposition home or self-care (01) ==
LOC: RADMRIMAIN 13:51
PROVIDERS: ATTEND Nurse Practitioner Family
DX: R90.89 Other abnormal findings on diagnostic imaging of central nervous system (principal); R41.3 Other amnesia
CPT/HCPCS: 70551

== ENCOUNTER 2021-10-22 09:03 | Emergency (ER) | payer MEDICARE ==
[2021-10-22 09:28] VITALS: TEMP 97.8
[2021-10-22] MEDS ORDERED: HYDROcodone/APAP 5-325MG 1 EACH TAB PO STA (09:56)
[2021-10-22] MEDS ORDERED: KETOROLAC 15 MG/ML 1 ML VIAL IVP STA (09:56)
[2021-10-22 10:40] LABS: Basophils % (A) 0 %; Eosinophils # (A) 0.3 k/uL (0-0.7); Eosinophils % (A) 4 %; HCT 41.1 % (34.0-46.0); HGB 13.6 gm/dL (11.4-16.0); Lymphocytes # (A) 0.8 k/uL (1.0-4.8); Lymphocytes % (A) 10 %; MCH 32.7 pg (25.0-35.0); MCHC 33.2 g/dL (31.0-37.0); MCV 98.6 fL (80.0-100.0); Mean Platelet Volume 8.3; Monocytes # (A) 0.4 k/uL (0-1.0); Monocytes % (A) 6 %; Neutrophils # (A) 6.2 k/uL (1.3-7.7); Neutrophils % (A) 79 %; Platelet Count 181 k/uL (150-450); RBC 4.17 m/uL (3.80-5.40); WBC 7.8 k/uL (3.8-10.6)
[2021-10-22 10:49] LABS: INR 0.9 (<1.2); Partial Thromboplastin Time 26.1 sec (22.0-30.0); Prothrombin Time 10.3 sec (9.0-12.0)
[2021-10-22 10:53] LABS: Albumin 3.3 g/dL (3.5-5.0); C Reactive Protein 1.6 mg/dL (<1.0); Calcium 8.5 mg/dL (8.4-10.2); Total Bilirubin 0.5 mg/dL (0.2-1.3); Total Protein 5.8 g/dL (6.3-8.2)
[2021-10-22] MEDS ORDERED: SODIUM CHLORIDE 0.9% 1,000 ML IV ONE (12:17)
--- NOTE | 2021-10-22 12:17 | ED ---
Weakness HPI - General Chief complaint: Weakness Stated complaint: Bodyaches/NVD Time Seen by Provider: 10/22/21 09:38 Source: patient, family, RN notes reviewed Mode of arrival: wheelchair Limitations: no limitations - History of Present Illness Initial comments: This is a 76 show female presents emergency Department chief complaint of body aches. Patient states that she's had muscle and joint pain for several weeks. Patient has been seen her PCP was given her tramadol for discomfort. Patient states she does not describe was causing her symptoms. Patient denies any chest pain shortness breath. Headache blurred vision or focal weakness. Patient states she has had some urinary difficulties with states last urine output mild discomfort. No reported fever patient states she does have underlying dementia, early Parkinson's disease - Related Data Home Medications Medication Instructions Recorded Confirmed Escitalopram [Lexapro] 20 mg PO DAILY 02/21/15 10/22/21 Atorvastatin [Lipitor] 10 mg PO DAILY 05/24/18 10/22/21 Folic Acid 1 mg PO DAILY 09/05/21 10/22/21 lamoTRIgine [LaMICtal] 150 mg PO DAILY 09/05/21 10/22/21 traZODone HCL 100 mg PO HS 09/05/21 10/22/21 Fluticasone Nasal [place] [Flonase 2 spray EA NOSTRIL DAILY PRN 10/22/21 10/22/21 Nasal [place]] traMADol HCL 50 mg PO Q12H PRN 10/22/21 10/22/21 Previous Rx's Medication Instructions Recorded HYDROcodone/APAP 5-325MG [[place] 5] 1 each PO Q6HR PRN #12 tab 10/22/21 Allergies Allergy/AdvReac Type Severity Reaction Status Date / Time Iodinated Contrast Media Allergy Unknown AGITATION, Verified 10/22/21 10:29 [Iodinated Contrast Media - SHAKING IV Dye] prochlorperazine edisylate Allergy Unknown Verified 10/22/21 10:29 [From Compazine] prochlorperazine maleate Allergy Unknown Verified 10/22/21 10:29 [From Compazine] pregabalin [From Lyrica] AdvReac Confusion Verified 10/22/21 10:29 Review of Systems ROS Statement: Those systems with pertinent positive or pertinent negative responses have been documented in the HPI. ROS Other: All systems not noted in ROS Statement are negative. Past Medical History Past Medical History: Cancer, COPD, GERD/Reflux, Hyperlipidemia, Osteoarthritis (OA) Additional Past Medical History / Comment(s): Positive smoking history for greater than 40 years diverticulitis, IBS, constipation, diarrhea, occ blood in stool, HX OF UTERINE CA. History of Any Multi-Drug Resistant Organisms: C-DIFF Date of last positivie culture/infection: 03/28/17 MDRO Source:: stool Past Surgical History: Bowel Resection, Breast Surgery, Cholecystectomy, Hysterectomy, Tonsillectomy Additional Past Surgical History / Comment(s): LINDA FUNDOPLASTY. 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/2013). jorge breast lumpectomy Past Anesthesia/Blood Transfusion Reactions: Previous Problems w/ Anesthesia, Motion Sickness Additional Past Anesthesia/Blood Transfusion Reaction / Comment(s): had trouble breathing one time when coming out of anesthesia Past Psychological History: Anxiety, Depression Smoking Status: Current every day smoker - Past Family History Father Family Medical History: Cancer Mother Family Medical History: Cancer Brother(s) Family Medical History: Cancer General Exam Limitations: no limitations General appearance: alert, in no apparent distress Head exam: Present: atraumatic, normocephalic, normal inspection Eye exam: Present: normal appearance, PERRL, EOMI. Absent: scleral icterus, conjunctival injection, periorbital swelling ENT exam: Present: normal exam, normal oropharynx, mucous membranes moist Neck exam: Present: normal inspection, full ROM. Absent: tenderness, meningismus, lymphadenopathy Respiratory exam: Present: normal lung sounds bilaterally. Absent: respiratory distress, wheezes, rales, rhonchi, stridor Cardiovascular Exam: Present: regular rate, normal rhythm, normal heart sounds. Absent: systolic murmur, diastolic murmur, rubs, gallop, clicks GI/Abdominal exam: Present: soft, normal bowel sounds. Absent: distended, tenderness, guarding, rebound, rigid Neurological exam: Present: alert, oriented X3, CN II-XII intact Skin exam: Present: warm, dry, intact, normal color. Absent: rash Course Vital Signs 10/22/21 09:24 Temperature 97.8 F Pulse Rate 85 Respiratory 18 Rate Blood Pressure 137/84 O2 Sat by Pulse 95 Oximetry Medical Decision Making - Medical Decision Making 76-year-old presented for body pain. Patient has no clear signs of infection labs unremarkable. Patient has no specific joint pain or abnormality. Patient will follow-up with rheumatology return parameters discussed. - Lab Data Result diagrams: 10/22/21 10:00 10/22/21 10:00 Lab Results 10/22/21 10/22/21 10/22/21 Range/Units 10:00 10:00 10:00 WBC 7.8 (3.8-10.6) k/uL RBC 4.17 (3.80-5.40) m/uL Hgb 13.6 (11.4-16.0) gm/dL Hct 41.1 (34.0-46.0) % MCV 98.6 (80.0-100.0) fL MCH 32.7 (25.0-35.0) pg MCHC 33.2 (31.0-37.0) g/dL RDW 13.0 (11.5-15.5) % Plt Count 181 (150-450) k/uL MPV 8.3 Neutrophils % 79 % Lymphocytes % 10 % Monocytes % 6 % Eosinophils % 4 % Basophils % 0 % Neutrophils # 6.2 (1.3-7.7) k/uL Lymphocytes # 0.8 L (1.0-4.8) k/uL Monocytes # 0.4 (0-1.0) k/uL Eosinophils # 0.3 (0-0.7) k/uL Basophils # 0.0 (0-0.2) k/uL PT 10.3 (9.0-12.0) sec INR 0.9 (<1.2) APTT 26.1 (22.0-30.0) sec Sodium (137-145) mmol/L Potassium (3.5-5.1) mmol/L Chloride (98-107) mmol/L Carbon Dioxide (22-30) mmol/L Anion Gap mmol/L BUN (7-17) mg/dL Creatinine (0.52-1.04) mg/dL Est GFR (CKD-EPI)AfAm (>60 ml/min/1.73 sqM) Est GFR (CKD-EPI)NonAf (>60 ml/min/1.73 sqM) Glucose (74-99) mg/dL Plasma Lactic Acid Ankur (0.7-2.0) mmol/L Calcium (8.4-10.2) mg/dL Magnesium (1.6-2.3) mg/dL Total Bilirubin (0.2-1.3) mg/dL AST (14-36) U/L ALT (4-34) U/L Alkaline Phosphatase (38-126) U/L Troponin I (0.000-0.034) ng/mL C-Reactive Protein (<1.0) mg/dL Total Protein (6.3-8.2) g/dL Albumin (3.5-5.0) g/dL Urine Color Yellow Urine Appearance Clear (Clear) Urine pH 5.5 (5.0-8.0) Ur Specific [place] 1.025 (1.001-1.035) Urine Protein Trace H (Negative) Urine Glucose (UA) Negative (Negative) Urine Ketones Negative (Negative) Urine Blood Negative (Negative) Urine Nitrite Negative (Negative) Urine Bilirubin Negative (Negative) Urine Urobilinogen 2.0 (<2.0) mg/dL Ur Leukocyte Esterase Negative (Negative) Coronavirus (PCR) (Not Detectd) 10/22/21 10/22/21 10/22/21 Range/Units 10:00 10:00 10:00 WBC (3.8-10.6) k/uL RBC (3.80-5.40) m/uL Hgb (11.4-16.0) gm/dL Hct (34.0-46.0) % MCV (80.0-100.0) fL MCH (25.0-35.0) pg MCHC (31.0-37.0) g/dL RDW (11.5-15.5) % Plt Count (150-450) k/uL MPV Neutrophils % % Lymphocytes % % Monocytes % % Eosinophils % % Basophils % % Neutrophils # (1.3-7.7) k/uL Lymphocytes # (1.0-4.8) k/uL Monocytes # (0-1.0) k/uL Eosinophils # (0-0.7) k/uL Basophils # (0-0.2) k/uL PT (9.0-12.0) sec INR (<1.2) APTT (22.0-30.0) sec Sodium 139 (137-145) mmol/L Potassium 4.0 (3.5-5.1) mmol/L Chloride 107 (98-107) mmol/L Carbon Dioxide 25 (22-30) mmol/L Anion Gap 7 mmol/L BUN 14 (7-17) mg/dL Creatinine 0.92 (0.52-1.04) mg/dL Est GFR (CKD-EPI)AfAm 70 (>60 ml/min/1.73 sqM) Est GFR (CKD-EPI)NonAf 61 (>60 ml/min/1.73 sqM) Glucose 96 (74-99) mg/dL Plasma Lactic Acid Ankur 1.2 (0.7-2.0) mmol/L Calcium 8.5 (8.4-10.2) mg/dL Magnesium 2.0 (1.6-2.3) mg/dL Total Bilirubin 0.5 (0.2-1.3) mg/dL AST 15 (14-36) U/L ALT 7 (4-34) U/L Alkaline Phosphatase 62 (38-126) U/L Troponin I <0.012 (0.000-0.034) ng/mL C-Reactive Protein 1.6 H (<1.0) mg/dL Total Protein 5.8 L (6.3-8.2) g/dL Albumin 3.3 L (3.5-5.0) g/dL Urine Color Urine Appearance (Clear) Urine pH (5.0-8.0) Ur Specific [place] (1.001-1.035) Urine Protein (Negative) Urine Glucose (UA) (Negative) Urine Ketones (Negative) Urine Blood (Negative) Urine Nitrite (Negative) Urine Bilirubin (Negative) Urine Urobilinogen (<2.0) mg/dL Ur Leukocyte Esterase (Negative) Coronavirus (PCR) (Not Detectd) 10/22/21 Range/Units 10:00 WBC (3.8-10.6) k/uL RBC (3.80-5.40) m/uL Hgb (11.4-16.0) gm/dL Hct (34.0-46.0) % MCV (80.0-100.0) fL MCH (25.0-35.0) pg MCHC (31.0-37.0) g/dL RDW (11.5-15.5) % Plt Count (150-450) k/uL MPV Neutrophils % % Lymphocytes % % Monocytes % % Eosinophils % % Basophils % % Neutrophils # (1.3-7.7) k/uL Lymphocytes # (1.0-4.8) k/uL Monocytes # (0-1.0) k/uL Eosinophils # (0-0.7) k/uL Basophils # (0-0.2) k/uL PT (9.0-12.0) sec INR (<1.2) APTT (22.0-30.0) sec Sodium (137-145) mmol/L Potassium (3.5-5.1) mmol/L Chloride (98-107) mmol/L Carbon Dioxide (22-30) mmol/L Anion Gap mmol/L BUN (7-17) mg/dL Creatinine (0.52-1.04) mg/dL Est GFR (CKD-EPI)AfAm (>60 ml/min/1.73 sqM) Est GFR (CKD-EPI)NonAf (>60 ml/min/1.73 sqM) Glucose (74-99) mg/dL Plasma Lactic Acid Ankur (0.7-2.0) mmol/L Calcium (8.4-10.2) mg/dL Magnesium (1.6-2.3) mg/dL Total Bilirubin (0.2-1.3) mg/dL AST (14-36) U/L ALT (4-34) U/L Alkaline Phosphatase (38-126) U/L Troponin I (0.000-0.034) ng/mL C-Reactive Protein (<1.0) mg/dL Total Protein (6.3-8.2) g/dL Albumin (3.5-5.0) g/dL Urine Color Urine Appearance (Clear) Urine pH (5.0-8.0) Ur Specific [place] (1.001-1.035) Urine Protein (Negative) Urine Glucose (UA) (Negative) Urine Ketones (Negative) Urine Blood (Negative) Urine Nitrite (Negative) Urine Bilirubin (Negative) Urine Urobilinogen (<2.0) mg/dL Ur Leukocyte Esterase (Negative) Coronavirus (PCR) Not Detected (Not Detectd) Disposition Clinical Impression: Arthralgia, Myalgia Disposition: HOME SELF-CARE Condition: Stable Instructions (If sedation given, give patient instructions): Musculoskeletal Pain (ED) Additional Instructions: Please return to the Emergency Department if symptoms worsen or any other concerns. Prescriptions: HYDROcodone/APAP 5-325MG [[place] 5] 1 each PO Q6HR PRN #12 tab PRN Reason: Pain Is patient prescribed a controlled substance at d/c from ED?: Yes When asked, does pt state using other controlled substances?: No If prescribed controlled substance>3 days was MAPS reviewed?: Prescribed <3 Days If opioid is for acute pain is fill amount 7 days or less?: Yes If Rx opioid, was Start Talking consent form obtained?: Yes Referrals: Radha Zabala III, MD [Primary Care Provider] - 1-2 days Debbie Friedman MD [STAFF PHYSICIAN] - 1-2 days Time of Disposition: 13:23
[2021-10-22 12:49] LABS: Appearance,Urine Clear (Clear); Bilirubin,Urine Negative (Negative); Blood,Urine Negative (Negative); Color,Urine Yellow; Glucose,Urine (UA) Negative (Negative); Ketones,Urine Negative (Negative); Leukocyte Esterase,Urine Negative (Negative); Nitrite,Urine Negative (Negative); PH, Urine 5.5 (5.0-8.0); Protein,Urine Trace (Negative); Specific Gravity,Urine 1.025 (1.001-1.035)
[2021-10-22 13:56] VITALS: BP 141/66; PULSE 58; RESP 16
== END 2021-10-22 13:50 | disposition home or self-care (01) ==
LOC: EC 09:03
DX: M79.10 Myalgia, unspecified site (principal); M25.50 Pain in unspecified joint; J44.9 Chronic obstructive pulmonary disease, unspecified; K21.9 Gastro-esophageal reflux disease without esophagitis; F32.A Depression, unspecified; F41.9 Anxiety disorder, unspecified; E78.5 Hyperlipidemia, unspecified; M19.90 Unspecified osteoarthritis, unspecified site; F17.200 Nicotine dependence, unspecified, uncomplicated; Z79.899 Other long term (current) drug therapy
CPT/HCPCS: 36415; 80053; 83605; 83735; 84484; 85025; 85610; 85730; 86140; 81003; 87635; 99283; 96374; 96361; J1885

== ENCOUNTER 2022-01-02 13:54 | Emergency (ER) | payer MEDICARE ==
--- NOTE | 2022-01-02 17:02 | ED ---
General Adult HPI - General Chief complaint: Anxiety Stated complaint: Mental Health/Anxiety/Depression Time Seen by Provider: 01/02/22 16:55 Source: patient, RN notes reviewed, old records reviewed Mode of arrival: wheelchair Limitations: no limitations - History of Present Illness Initial comments: This is a 76-year-old female who presents to the emergency department who is very anxious and states his been ongoing for 2 or 3 months ever since the patient had her Lexapro reduced. Patient states it was at 40 mg daily and she is down to 20. Patient states ever since then her anxiety is building is becoming more more depressed. Patient states he is thinking of suicide however she states that never do it she just can't stop the thoughts. Patient denies any alcohol use. Patient denies any drug use. Patient denies any physical complaints today. Patient states she does not want to stay in the hospital she just wants some referrals to get to see a psychiatrist and possibly go back on her old dose of medication or on a new medication. - Related Data Home Medications Medication Instructions Recorded Confirmed Escitalopram [Lexapro] 20 mg PO DAILY 02/21/15 10/22/21 Atorvastatin [Lipitor] 10 mg PO DAILY 05/24/18 10/22/21 Folic Acid 1 mg PO DAILY 09/05/21 10/22/21 lamoTRIgine [LaMICtal] 150 mg PO DAILY 09/05/21 10/22/21 traZODone HCL 100 mg PO HS 09/05/21 10/22/21 Fluticasone Nasal [place] [Flonase 2 spray EA NOSTRIL DAILY PRN 10/22/21 10/22/21 Nasal [place]] traMADol HCL 50 mg PO Q12H PRN 10/22/21 10/22/21 Previous Rx's Medication Instructions Recorded HYDROcodone/APAP 5-325MG [[place] 5] 1 each PO Q6HR PRN #12 tab 10/22/21 Allergies Allergy/AdvReac Type Severity Reaction Status Date / Time Iodinated Contrast Media Allergy Unknown AGITATION, Verified 01/02/22 14:58 [Iodinated Contrast Media - SHAKING IV Dye] prochlorperazine edisylate Allergy Unknown Verified 01/02/22 14:58 [From Compazine] prochlorperazine maleate Allergy Unknown Verified 01/02/22 14:58 [From Compazine] pregabalin [From Lyrica] AdvReac Confusion Verified 01/02/22 14:58 Review of Systems ROS Statement: Those systems with pertinent positive or pertinent negative responses have been documented in the HPI. ROS Other: All systems not noted in ROS Statement are negative. Past Medical History Past Medical History: Cancer, COPD, GERD/Reflux, Hyperlipidemia, Osteoarthritis (OA) Additional Past Medical History / Comment(s): Positive smoking history for greater than 40 years diverticulitis, IBS, constipation, diarrhea, occ blood in stool, HX OF UTERINE CA. History of Any Multi-Drug Resistant Organisms: C-DIFF Date of last positivie culture/infection: 03/28/17 MDRO Source:: stool Past Surgical History: Bowel Resection, Breast Surgery, Cholecystectomy, Hysterectomy, Tonsillectomy Additional Past Surgical History / Comment(s): LINDA FUNDOPLASTY. 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/2013). jorge breast lumpectomy Past Anesthesia/Blood Transfusion Reactions: Previous Problems w/ Anesthesia, Motion Sickness Additional Past Anesthesia/Blood Transfusion Reaction / Comment(s): had trouble breathing one time when coming out of anesthesia Past Psychological History: Anxiety, Depression Smoking Status: Current every day smoker - Past Family History Father Family Medical History: Cancer Mother Family Medical History: Cancer Brother(s) Family Medical History: Cancer General Exam - General Exam Comments Initial Comments: GENERAL: Patient is well-developed and well-nourished. Patient is nontoxic and well- hydrated and is in no acute distress. ENT: Neck is soft and supple. No significant lymphadenopathy is noted. Oropharynx is clear. Moist mucous membranes. Neck has full range of motion without eliciting any pain. EYES: The sclera were anicteric and conjunctiva were pink and moist. Extraocular movements were intact and pupils were equal round and reactive to light. Eyelids were unremarkable. PULMONARY: Unlabored respirations. Good breath sounds bilaterally. No audible rales rhonchi or wheezing was noted. CARDIOVASCULAR: There is a regular rate and rhythm without any murmurs gallops or rubs. ABDOMEN: Soft and nontender with normal bowel sounds. SKIN: Skin is clear with no lesions or rashes and otherwise unremarkable. NEUROLOGIC: Patient is alert and oriented x3. Cranial nerves II through XII are grossly intact. Motor and sensory are also intact. Normal speech, volume and content. Symmetrical smile. MUSCULOSKELETAL: Normal extremities with adequate strength and full range of motion. No lower extremity swelling or edema. No calf tenderness. LYMPHATICS: No significant lymphadenopathy is noted PSYCHIATRIC: Patient is anxious and she states she has suicidal thoughts but she will never act upon them. Patient states she just can't get her mind to stop thinking about suicide. Limitations: no limitations Course Vital Signs 01/02/22 01/02/22 14:58 17:10 Temperature 98.1 F Pulse Rate 95 Respiratory 16 18 Rate Blood Pressure 120/68 O2 Sat by Pulse 96 Oximetry Medical Decision Making - Medical Decision Making EPS evaluated the patient and determined that the patient just wanted to talk and make sure she can get follow-up on Wednesday patient was happy with this and wanted be discharged home to follow-up with [facility] on Wednesday. No medications changed at this time - Lab Data Lab Results 01/02/22 Range/Units 17:37 Urine Opiates Screen Not Detected (NotDetected) Ur Oxycodone Screen Detected H (NotDetected) Urine Methadone Screen Not Detected (NotDetected) Ur Propoxyphene Screen Not Detected (NotDetected) Ur Barbiturates Screen Not Detected (NotDetected) U Tricyclic Antidepress Not Detected (NotDetected) Ur Phencyclidine Scrn Not Detected (NotDetected) Ur Amphetamines Screen Not Detected (NotDetected) U Methamphetamines Scrn Not Detected (NotDetected) U Benzodiazepines Scrn Not Detected (NotDetected) Urine Cocaine Screen Not Detected (NotDetected) U Marijuana (THC) Screen Not Detected (NotDetected) Disposition Clinical Impression: Acute anxiety Disposition: HOME SELF-CARE Condition: Good Instructions (If sedation given, give patient instructions): Generalized Anxiety Disorder (ED) Is patient prescribed a controlled substance at d/c from ED?: No Referrals: Radha Zabala III, MD [Primary Care Provider] - 1-2 days Time of Disposition: 18:31
[2022-01-02 17:48] VITALS: RESP 18
[2022-01-02 18:12] LABS: Amphetamine Screen,Urine Not Detected (NotDetected); Barbiturate Screen,Urine Not Detected (NotDetected); Benzodiazepines Screen,Urine Not Detected (NotDetected); Cocaine Screen,Urine Not Detected (NotDetected); Methadone Screen, Urine Not Detected (NotDetected); Opiate Screen,Urine Not Detected (NotDetected); Oxycodone Screen, Urine Detected (NotDetected); Phencyclidine Screen,Urine Not Detected (NotDetected); Tricyclic Antidepressant,Urine Not Detected (NotDetected); Urn Cannabinoid Scrn Not Detected (NotDetected)
[2022-01-02 19:05] VITALS: BP 164/90; PULSE 68; TEMP 97.8
== END 2022-01-02 19:05 | disposition home or self-care (01) ==
LOC: EC 13:54
DX: F41.9 Anxiety disorder, unspecified (principal); J44.9 Chronic obstructive pulmonary disease, unspecified; K21.9 Gastro-esophageal reflux disease without esophagitis; E78.5 Hyperlipidemia, unspecified; M19.90 Unspecified osteoarthritis, unspecified site; F32.A Depression, unspecified; F17.200 Nicotine dependence, unspecified, uncomplicated; Z79.899 Other long term (current) drug therapy
CPT/HCPCS: 80306; 82075; 99283

== ENCOUNTER 2022-01-14 08:26 | Day surgery (SDC) | payer MEDICARE ==
[2022-01-13 08:25] VITALS: BMI 30.1
[~2022-01-14 08:26] MED LIST changes: -HEPARIN SODIUM,PORCINE 5,000 UNIT/ML 1 ML VIAL SQ ONE; -HYDROmorphone 1 MG/ML 1 ML SYRINGE IVP PRN; +LACTATED RINGERS 1,000 ML IV SCH; -LIDOCAINE 1% 20 ML VIAL (10MG/ML) FOR IV START INTRADERMA PRN; -MIDAZOLAM 2 MG/2 ML VIAL IV PRN; -ONDANSETRON 4 MG/2 ML VIAL IVP ONE; -ceFAZolin 2 GM in SODIUM CHLORIDE 0.9% 100 ML IVPB ONE; -fentaNYL (PF) 50 MCG/ML 20 ML VIAL IVP PRN; -metroNIDAZOLE-NS PMX 500 MG in SALINE 1 100ML.BAG IVPB ONE
--- NOTE | 2022-01-14 08:35 | P.GSHP ---
History of Present Illness H&P Date: 01/14/22 CHIEF COMPLAINT: Colon screen HISTORY OF PRESENT ILLNESS: The patient is a 76-year-old female who presents for colon screen. Lower endoscopy was offered for further evaluation and management. PAST MEDICAL HISTORY: Please see list. PAST SURGICAL HISTORY: Please see list. MEDICATIONS: Please see list. ALLERGIES: Please see list. SOCIAL HISTORY: No illicit drug use FAMILY HISTORY: No reports of Crohn disease or ulcerative colitis. REVIEW OF ORGAN SYSTEMS: CONSTITUTIONAL: No reports of fevers or chills. PHYSICAL EXAM: VITAL SIGNS: Stable GENERAL: Well-developed pleasant in no acute distress. HEENT: No scleral icterus. Extraocular movements grossly intact. Moist buccal mucosa. NECK: Supple without lymphadenopathy. CHEST: Unlabored respirations. Equal bilateral excursions. CARDIOVASCULAR: Regular rate and rhythm. Distal 2+ pulses. ABDOMEN: Soft, nontender, nondistended. MUSCULOSKELETAL: No clubbing, cyanosis, or edema. ASSESSMENT: 1. Colon screen. PLAN: 1. Recommend proceeding with a lower endoscopy Past Medical History Past Medical History: Cancer, COPD, GERD/Reflux, Osteoarthritis (OA), Rheumatoid Arthritis (RA) Additional Past Medical History / Comment(s): diverticulitis, IBS, severe constipation, occ blood in stool, HX OF UTERINE CA. "dizzy spells" History of Any Multi-Drug Resistant Organisms: C-DIFF Date of last positivie culture/infection: 03/28/17 MDRO Source:: stool Past Surgical History: Bowel Resection, Breast Surgery, Cholecystectomy, Hysterectomy, Joint Replacement, Orthopedic Surgery, Tonsillectomy Additional Past Surgical History / Comment(s): LINDA FUNDOPLASTY. LEFT CAROTID SUBCLAVIAN BYPASS. jorge breast lumpectomy, left hip partial replacement and left foot surgery for fx Past Anesthesia/Blood Transfusion Reactions: Previous Problems w/ Anesthesia, Motion Sickness Additional Past Anesthesia/Blood Transfusion Reaction / Comment(s): had trouble breathing and diff waling up one time when coming out of anesthesia Smoking Status: Current every day smoker - Past Family History Father Family Medical History: Cancer Mother Family Medical History: Cancer Brother(s) Family Medical History: Cancer Medications and Allergies Home Medications Medication Instructions Recorded Confirmed Type Atorvastatin [Lipitor] 10 mg PO DAILY 05/24/18 01/13/22 History Folic Acid 1 mg PO DAILY 09/05/21 01/13/22 History lamoTRIgine [LaMICtal] 150 mg PO DAILY 09/05/21 01/13/22 History traZODone HCL 100 mg PO HS 09/05/21 01/13/22 History Fluticasone Nasal [place] [Flonase 2 spray EA NOSTRIL DAILY PRN 10/22/21 01/13/22 History Nasal [place]] Aspirin 325 mg PO DAILY PRN 01/13/22 01/13/22 History Cholecalciferol (Vitamin D3) 125 mcg PO DAILY 01/13/22 01/13/22 History [Vitamin D3 (125 MCG = 5,000 IU)] Cyanocobalamin (Vitamin B-12) 1,000 mcg PO DAILY 01/13/22 01/13/22 History [Vitamin B-12] Escitalopram [Lexapro] 10 mg PO DAILY 01/13/22 01/13/22 History Allergies Allergy/AdvReac Type Severity Reaction Status Date / Time Iodinated Contrast Media Allergy Unknown AGITATION, Verified 01/13/22 08:13 [Iodinated Contrast Media - SHAKING IV Dye] prochlorperazine edisylate Allergy Unknown Verified 01/13/22 08:13 [From Compazine] prochlorperazine maleate Allergy Unknown Verified 01/13/22 08:13 [From Compazine] pregabalin [From Lyrica] AdvReac Confusion Verified 01/13/22 08:13
[2022-01-14] MEDS ORDERED: ONDANSETRON 4 MG/2 ML VIAL ONE (08:38)
[2022-01-14 08:47] VITALS: TEMP 96.5
[2022-01-14] MEDS ORDERED: LIDOCAINE 1% (10MG/ML) FOR IV START INTRADERMA ONE (08:50)
[2022-01-14] MEDS ORDERED: ONDANSETRON 4 MG/2 ML VIAL IVP ONE (09:03)
[2022-01-14] MEDS ORDERED: MIDAZOLAM 2 MG/2 ML VIAL IVP ONE (09:03)
[2022-01-14] MEDS ORDERED: PROPOFOL 10 MG/ML 20 ML VIAL IV ONE (09:50)
[2022-01-14 10:56] VITALS: BP 136/78; PULSE 71; RESP 16
--- NOTE | 2022-01-14 10:58 | P.PCN ---
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 ANESTHESIA: MAC. INDICATIONS: The patient is an 76-year-old female who presents with change in bowel habits and chronic constipation. Benefits and risks were described and informed consent was obtained. DESCRIPTION OF PROCEDURE: The patient had undergone extended prep with Sutab prep. The patient had been brought into the operating room and laid in the left lateral decubitus position. After adequate intravenous sedation, the rectum was examined with 2% lidocaine jelly. External hemorrhoids were encountered. The rectal tone was within normal limits. No lesions were palpated in the rectal vault. An Olympus colonoscope with double-lumen identified at 18 cm from the anal verge. Blind colorectal limb extended to 30 cm from the anal verge. Anastomotic stricture of 6 mm was found requiring switch from adult to pediatric colonoscope. A pyloric balloon was advanced with dilation of stricture to 18 mm. Next, the scope was advanced until the cecum, ileocecal valve and appendiceal orifice were clearly viewed. The prep was excellent. A few scattered diverticulosis was encountered. 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 Colonic polyps were found and removed. A large polyp at 30 cm from the anal verge which is flat villous was removed in piecemeal resection and tattooed. No evidence of focal colitis was found. Retroflexion of the scope demonstrated grade 2 internal hemorrhoids without active bleeding or inflammation. The colon was desufflated. The patient had tolerated the procedure well. Withdrawal time was over 6 minutes. FINDINGS: Aronchick preparation quality scale 1 (1-5) Internal hemorrhoids, grade 2 External hemorrhoids, grade 1. Arteriovenous malformations 2 without bleeding, 4 mm and 5 mm at cecum/ascending colon Scattered few diverticulosis Blind colorectal pouch at 30 cm from the anus Anastomotic stricture of 6 mm at 18 cm from the anal verge dilated to 18 mm with pyloric balloon Removal of 5 polyps: - Snare polypectomy ascending colon 2, 3 to 5 mm tubulovillous adenoma polyp. - Snare polypectomy hepatic flexure 2, t o 6 mm flat villous adenoma polyp. - Snare polypectomy at 30 cm, 15 mm flat villous adenoma polyp, sigmoid colon removed in piecemeal with injection of Ania ink, 2 mL No focal colitis. RECOMMENDATIONS: For piecemeal resection of large adenoma, repeat colonoscopy in 3 months, March 2022. Recommend surgical resection of anastomotic stricture Plan - Discharge Summary New Discharge Prescriptions: Continue Atorvastatin [Lipitor] 10 mg PO DAILY Folic Acid 1 mg PO DAILY Fluticasone Nasal [place] [Flonase Nasal [place]] 2 spray EA NOSTRIL DAILY PRN PRN Reason: Allergy Symptoms Cholecalciferol (Vitamin D3) [Vitamin D3 (125 MCG = 5,000 IU)] 125 mcg PO DAILY traZODone HCL 100 mg PO HS lamoTRIgine [LaMICtal] 150 mg PO DAILY Cyanocobalamin (Vitamin B-12) [Vitamin B-12] 1,000 mcg PO DAILY Aspirin 325 mg PO DAILY PRN PRN Reason: Pain Escitalopram [Lexapro] 10 mg PO DAILY Discharge Medication List Atorvastatin [Lipitor] 10 mg PO DAILY 05/24/18 [History] Folic Acid 1 mg PO DAILY 09/05/21 [History] lamoTRIgine [LaMICtal] 150 mg PO DAILY 09/05/21 [History] traZODone HCL 100 mg PO HS 09/05/21 [History] Fluticasone Nasal [place] [Flonase Nasal [place]] 2 spray EA NOSTRIL DAILY PRN 10/22/21 [History] Aspirin 325 mg PO DAILY PRN 01/13/22 [History] Cholecalciferol (Vitamin D3) [Vitamin D3 (125 MCG = 5,000 IU)] 125 mcg PO DAILY 01/13/22 [History] Cyanocobalamin (Vitamin B-12) [Vitamin B-12] 1,000 mcg PO DAILY 01/13/22 [History] Escitalopram [Lexapro] 10 mg PO DAILY 01/13/22 [History] Follow up Appointment(s)/Referral(s): Lizet Ahmadi MD [STAFF PHYSICIAN] - 01/27/22 Patient Instructions/Handouts: Colorectal Polyps (GEN), Diverticulosis Diet (GEN), Diverticulosis (GEN), Arteriovenous Malformation (DC), *Surgery [facility] - (Anesthesia) Endoscopy Discharge Instructions Activity/Diet/Wound Care/Special Instructions: Repeat colonoscopy in 3 months, March 2022 Discharge Disposition: HOME SELF-CARE
== END 2022-01-14 11:29 | disposition home or self-care (01) ==
LOC: ORWHC2ENDO 08:26
PROVIDERS: ATTEND Surgery Plastic and Reconstructive Surgery
DX: Z12.11 Encounter for screening for malignant neoplasm of colon (principal); D12.2 Benign neoplasm of ascending colon; D12.3 Benign neoplasm of transverse colon; D12.5 Benign neoplasm of sigmoid colon; K57.30 Diverticulosis of large intestine without perforation or abscess without bleeding; Q27.39 Arteriovenous malformation, other site; K58.9 Irritable bowel syndrome, unspecified; K91.31 Postprocedural partial intestinal obstruction; K64.1 Second degree hemorrhoids; K64.4 Residual hemorrhoidal skin tags; K21.9 Gastro-esophageal reflux disease without esophagitis; J44.9 Chronic obstructive pulmonary disease, unspecified; M19.90 Unspecified osteoarthritis, unspecified site; M06.9 Rheumatoid arthritis, unspecified; Z87.19 Personal history of other diseases of the digestive system; Z85.42 Personal history of malignant neoplasm of other parts of uterus; Z86.19 Personal history of other infectious and parasitic diseases; F17.200 Nicotine dependence, unspecified, uncomplicated; Z80.9 Family history of malignant neoplasm, unspecified; Z79.52 Long term (current) use of systemic steroids; Z79.899 Other long term (current) drug therapy; Z88.8 Allergy status to other drugs, medicaments and biological substances; Z91.048 Other nonmedicinal substance allergy status
CPT/HCPCS: 88305; 45385; 45386; 45381; J2250; J2405; J2704; C1727

== ENCOUNTER → 2022-03-31 | Outpatient (CLI) | payer MEDICARE ==
[2022-04-01 00:52] LABS: Non-African American GFR(CKD) 64.7 (60.0-200.0)
== END | disposition home or self-care (01) ==
LOC: LABWHC1 14:34
PROVIDERS: ATTEND Colon & Rectal Surgery
DX: K59.00 Constipation, unspecified (principal)
CPT/HCPCS: 36415; 82565; 84520

== ENCOUNTER → 2022-04-09 | Outpatient (CLI) | payer MEDICARE ==
--- NOTE | 2022-04-09 15:46 | CT ---
EXAMINATION: CT ABDOMEN AND PELVIS WITH IV CONTRAST DATE OF EXAMINATION: 04/09/2022. COMPARISON: 09/05/2021.. INDICATION: Constipation. PROCEDURE: Axial CT of the abdomen and pelvis was performed with contrast and sagittal and coronal reformatted images were performed. CT dose lowering techniques were used, to include: automated expos ure control, adjustment for patient size, and/or use of iterative reconstruction. His of Isovue 300 w as given intravenously. FINDINGS: LOWER CHEST : The visualized lung bases are clear. There are no pleural or pericardial effusions. ABDOMEN: Liver and Biliary system: There are a few scattered simple cysts seen throughout the liver. No suspi cious liver lesions are otherwise identified. Adrenal glands: Normal. Kidneys and ureters: Normal. Spleen: Normal. Pancreas: Normal. Gallbladder: Surgically absent. Lymph nodes, Peritoneum and mesentery: There is no mesenteric or retroperitoneal lymphadenopathy. Gastrointestinal tract: There are no dilated loops of bowel or free intraperitoneal air. The appe ndix is normal. Aorta/IVC: Significant vascular calcification throughout the abdominal aorta and iliac vessels with out evidence of aneurysmal dilation or dissection. IVC normal. Abdominal wall: Normal. PELVIS: Fluid: There is no free fluid in the pelvis. Lymph Nodes: There is no pelvic or inguinal lymphadenopathy.. Urinary bladder: Normal. BONES: There is a left total hip arthroplasty with no gross abnormality identified. Osseous structur es otherwise appear unremarkable ADDITIONAL SIGNIFICANT FINDINGS: None. IMPRESSION: No acute process within the abdomen or pelvis.
== END | disposition home or self-care (01) ==
LOC: RADCTMAIN 14:39
DX: K59.00 Constipation, unspecified (principal)
CPT/HCPCS: 74177; Q9967

== ENCOUNTER 2024-03-15 08:01 | Day surgery (SDC) | payer MEDICARE ==
[2024-03-10 16:17] VITALS: BMI 30.2
--- NOTE | 2024-03-15 08:35 | P.GSHP ---
History of Present Illness H&P Date: 03/15/24 CHIEF COMPLAINT: Colon screen HISTORY OF PRESENT ILLNESS: The patient is a 78-year-old female who presents for colon screen. Lower endoscopy was offered for further evaluation and management. PAST MEDICAL HISTORY: Please see list. PAST SURGICAL HISTORY: Please see list. MEDICATIONS: Please see list. ALLERGIES: Please see list. SOCIAL HISTORY: No illicit drug use FAMILY HISTORY: No reports of Crohn disease or ulcerative colitis. REVIEW OF ORGAN SYSTEMS: CONSTITUTIONAL: No reports of fevers or chills. PHYSICAL EXAM: VITAL SIGNS: Stable GENERAL: Well-developed pleasant in no acute distress. HEENT: No scleral icterus. Extraocular movements grossly intact. Moist buccal mucosa. NECK: Supple without lymphadenopathy. CHEST: Unlabored respirations. Equal bilateral excursions. CARDIOVASCULAR: Regular rate and rhythm. Distal 2+ pulses. ABDOMEN: Soft, nontender, nondistended. MUSCULOSKELETAL: No clubbing, cyanosis, or edema. ASSESSMENT: 1. Colon screen. PLAN: 1. Recommend proceeding with a lower endoscopy Past Medical History Past Medical History: Cancer, COPD, Dementia, GERD/Reflux, Hyperlipidemia, Osteoarthritis (OA) Additional Past Medical History / Comment(s): diverticulitis, IBS, constipation, diarrhea, occ blood in stool, HX OF UTERINE CA-yrs ago,beginning stages of dementia-sign own consents,early stages of Parkinson's-uses cane and walker History of Any Multi-Drug Resistant Organisms: C-DIFF Date of last positivie culture/infection: 03/28/17 MDRO Source:: stool Past Surgical History: Bowel Resection, Breast Surgery, Cholecystectomy, Hysterectomy, Tonsillectomy Additional Past Surgical History / Comment(s): LINDA FUNDOPLASTY. 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/2013), jorge breast lumpectomy, colostomy Past Anesthesia/Blood Transfusion Reactions: Previous Problems w/ Anesthesia, Motion Sickness Additional Past Anesthesia/Blood Transfusion Reaction / Comment(s): had trouble breathing one time when coming out of anesthesia Smoking Status: Current every day smoker, Vaper - Past Family History Father Family Medical History: Cancer Mother Family Medical History: Cancer Brother(s) Family Medical History: Cancer Medications and Allergies Home Medications Medication Instructions Recorded Confirmed Type Atorvastatin [Lipitor] 10 mg PO DAILY 05/24/18 03/15/24 History traZODone HCL 175 mg PO HS 09/05/21 03/15/24 History lamoTRIgine [LaMICtal Xr] 150 mg PO QAM 01/11/23 03/15/24 History Aspirin 243 mg PO DAILY PRN 03/10/24 03/10/24 History DULoxetine HCL 80 mg PO QAM 03/10/24 03/15/24 History Donepezil HCl [Aricept] 10 mg PO HS 03/10/24 03/15/24 History Allergies Allergy/AdvReac Type Severity Reaction Status Date / Time Iodinated Contrast Media Allergy Unknown AGITATION, Verified 03/15/24 08:34 [Iodinated Contrast Media - SHAKING IV Dye] prochlorperazine edisylate Allergy agitation, Verified 03/15/24 08:34 [From Compazine] SHAKING/DIZZINESS prochlorperazine maleate Allergy agitation, Verified 03/15/24 08:34 [From Compazine] SHAKING/DIZZINESS pregabalin [From Lyrica] AdvReac Confusion Verified 03/15/24 08:34
[2024-03-15 08:36] VITALS: TEMP 97
[2024-03-15] MEDS: IV FLUID CONTINUATION 1,000 ML IV ONE (08:40)
[2024-03-15] MEDS: LACTATED RINGERS 1,000 ML IV SCH (08:40)
[2024-03-15] MEDS ORDERED: PROPOFOL 10 MG/ML 20 ML VIAL IV ONE (08:59)
[2024-03-15 09:59] VITALS: BP 132/81; PULSE 64; RESP 20
--- NOTE | 2024-03-15 10:41 | P.PCN ---
Date of Procedure: 03/15/24 Description of Procedure: PREOPERATIVE DIAGNOSIS: High risk adenomas, personal history Colostomy status Colonoscopy screening. POSTOPERATIVE DIAGNOSIS: Diverting ileostomy, right abdomen Scattered moderate diverticulosis Colorectal anastomotic stricture Internal and external hemorrhoids, grade 3 Arteriovenous malformation OPERATION: Colonoscopy to transverse colon via diverting ileostomy with hot snare polypectomy for ablation Colonoscopy to transverse colon via diverting ileostomy with cold biopsy forcep Colonoscopy via rectum to sigmoid colon SURGEON: Lizet Ahmadi MD. ANESTHESIA: MAC. INDICATIONS: The patient is a 78-year-old female who presents with colostomy after developing anastomotic stricture from prior colectomy. Benefits and risks were described and informed consent was obtained. DESCRIPTION OF PROCEDURE: The patient had undergone GoLytely prep. The patient had been brought into the operating room and laid in the left lateral decubitus position. After adequate intravenous sedation, the rectum was examined with 2% lidocaine jelly. External hemorrhoids were encountered. The rectal tone was within normal limits. No lesions were palpated in the rectal vault. The scope was advanced to the rectal stump at 20 cm from the anal verge where anastomotic stricture preventing advancement of scope was found. The colonoscope was withdrawn. Retroflexion of the scope demonstrated grade 2 internal hemorrhoids without active bleeding or inflammation. The colon was desufflated. Patient was flipped supine. Digital exploration of her ostomy was performed demonstrating a diverting ileostomy. An Olympus colonoscope was advanced through her ileostomy until the transverse colon was found. The prep was good. Scattered diverticulosis was encountered. Colonic polyps were found. No evidence of focal colitis was found. The patient had tolerated the procedure well. Withdrawal time was over 6 minutes. FINDINGS: Aronchick preparation quality scale 2 (1-5) Internal hemorrhoids, grade 2 External prolapsed hemorrhoids, grade 2 Arteriovenous malformations ascending colon Removal of 2 colon polyps. - Hot snare polypectomy ascending colon, 3 mm, ablated - Cold forcep biopsies, mid transverse colon, 3 mm No focal colitis. Rectal stump 20 cm from the anal verge with anastomotic stricture preventing advancement of scope RECOMMENDATIONS: 1. Lower endoscopy in 3 years, 2026 2. May benefit from additional testing for altered anatomy Plan - Discharge Summary Discharge Rx Participant: No New Discharge Prescriptions: Continue Atorvastatin [Lipitor] 10 mg PO DAILY Aspirin 243 mg PO DAILY PRN PRN Reason: Pain Donepezil HCl [Aricept] 10 mg PO HS traZODone HCL 175 mg PO HS lamoTRIgine [LaMICtal Xr] 150 mg PO QAM DULoxetine HCL 80 mg PO QAM Discharge Medication List Atorvastatin [Lipitor] 10 mg PO DAILY 05/24/18 [History] traZODone HCL 175 mg PO HS 09/05/21 [History] lamoTRIgine [LaMICtal Xr] 150 mg PO QAM 01/11/23 [History] Aspirin 243 mg PO DAILY PRN 03/10/24 [History] DULoxetine HCL 80 mg PO QAM 03/10/24 [History] Donepezil HCl [Aricept] 10 mg PO HS 03/10/24 [History] Follow up Appointment(s)/Referral(s): Lizet Ahmadi MD [STAFF PHYSICIAN] - As Needed Patient Instructions/Handouts: *Surgery [facility] - (Anesthesia) Discharge Instructions Outpatient Surgery, Colorectal Polyps (GEN), Diverticulosis (GEN), Diverticulosis Diet (GEN) Activity/Diet/Wound Care/Special Instructions: Repeat colonoscopy 3 years, 2026 Discharge Disposition: HOME SELF-CARE
== END 2024-03-15 11:07 | disposition home or self-care (01) ==
LOC: ORWHC2ENDO 08:01
PROVIDERS: ATTEND Surgery Plastic and Reconstructive Surgery
DX: Z12.11 Encounter for screening for malignant neoplasm of colon (principal); D12.3 Benign neoplasm of transverse colon; E78.5 Hyperlipidemia, unspecified; F02.80 Dementia in other diseases classified elsewhere, unspecified severity, without behavioral disturbance, psychotic disturbance, mood disturbance, and anxiety; G20.A1 Parkinson's disease without dyskinesia, without mention of fluctuations; J44.9 Chronic obstructive pulmonary disease, unspecified; K21.9 Gastro-esophageal reflux disease without esophagitis; K57.30 Diverticulosis of large intestine without perforation or abscess without bleeding; K58.9 Irritable bowel syndrome, unspecified; K64.1 Second degree hemorrhoids; K64.4 Residual hemorrhoidal skin tags; M19.90 Unspecified osteoarthritis, unspecified site; Z79.899 Other long term (current) drug therapy; F17.200 Nicotine dependence, unspecified, uncomplicated; Z88.8 Allergy status to other drugs, medicaments and biological substances; Z91.041 Radiographic dye allergy status; Z93.3 Colostomy status; Z90.49 Acquired absence of other specified parts of digestive tract; Z90.710 Acquired absence of both cervix and uterus
CPT/HCPCS: 88305; 45380; 45385; 44404; J2704

== ENCOUNTER 2024-04-19 13:18 | Emergency (ER) | payer MEDICARE ==
--- NOTE | 2024-04-19 13:51 | ED ---
General Adult HPI - General Chief complaint: Upper Respiratory Infection Stated complaint: weakness, congestion Time Seen by Provider: 04/19/24 13:40 Source: patient Mode of arrival: wheelchair Limitations: no limitations - History of Present Illness Initial comments: Dictation was produced using [employer] dictation software. please excuse any grammatical, word or spelling errors. Chief Complaint: 79-year-old female presents to the emergency department a couple days of URI symptoms History of Present Illness: Patient 79-year-old female she denies any significant comorbidities. She is here today with her son for the last couple days she has been having bodyaches, runny nose fever nasal congestion. No obvious sick contacts. Denies any chest pain. Denies any cough. No abdominal pain The ROS documented in this emergency department record has been reviewed and confirmed by me. Those systems with pertinent positive or negative responses have been documented in the HPI. All other systems are other negative and/or noncontributory. - Related Data Home Medications Medication Instructions Recorded Confirmed Atorvastatin [Lipitor] 10 mg PO DAILY 05/24/18 03/15/24 traZODone HCL 175 mg PO HS 09/05/21 03/15/24 lamoTRIgine [LaMICtal Xr] 150 mg PO QAM 01/11/23 03/15/24 Aspirin 243 mg PO DAILY PRN 03/10/24 03/10/24 DULoxetine HCL 80 mg PO QAM 03/10/24 03/15/24 Donepezil HCl [Aricept] 10 mg PO HS 03/10/24 03/15/24 Allergies Allergy/AdvReac Type Severity Reaction Status Date / Time Iodinated Contrast Media Allergy Unknown AGITATION, Verified 04/19/24 13:26 [Iodinated Contrast Media - SHAKING IV Dye] prochlorperazine edisylate Allergy agitation, Verified 04/19/24 13:26 [From Compazine] SHAKING/DIZZINESS prochlorperazine maleate Allergy agitation, Verified 04/19/24 13:26 [From Compazine] SHAKING/DIZZINESS pregabalin [From Lyrica] AdvReac Confusion Verified 04/19/24 13:26 sulfamethoxazole AdvReac Nausea & Verified 04/19/24 13:26 [From Bactrim] Vomiting trimethoprim [From Bactrim] AdvReac Nausea & Verified 04/19/24 13:26 Vomiting Review of Systems ROS Statement: Those systems with pertinent positive or pertinent negative responses have been documented in the HPI. ROS Other: All systems not noted in ROS Statement are negative. Past Medical History Past Medical History: Cancer, COPD, Dementia, GERD/Reflux, Hyperlipidemia, Osteoarthritis (OA) Additional Past Medical History / Comment(s): diverticulitis, IBS, constipation, diarrhea, occ blood in stool, HX OF UTERINE CA-yrs ago,beginning stages of dementia-sign own consents,early stages of Parkinson's-uses cane and walker History of Any Multi-Drug Resistant Organisms: C-DIFF Date of last positivie culture/infection: 03/28/17 MDRO Source:: stool Past Surgical History: Bowel Resection, Breast Surgery, Cholecystectomy, Hysterectomy, Tonsillectomy Additional Past Surgical History / Comment(s): LINDA FUNDOPLASTY. 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/2013), jorge breast lumpectomy, colostomy Past Anesthesia/Blood Transfusion Reactions: Previous Problems w/ Anesthesia, Motion Sickness Additional Past Anesthesia/Blood Transfusion Reaction / Comment(s): had trouble breathing one time when coming out of anesthesia Past Psychological History: Anxiety, Depression Smoking Status: Current every day smoker, Vaper - Past Family History Father Family Medical History: Cancer Mother Family Medical History: Cancer Brother(s) Family Medical History: Cancer General Exam - General Exam Comments Initial Comments: PHYSICAL EXAM: General Impression: Alert and oriented x3, not in acute distress HEENT: Normocephalic atraumatic, extra-ocular movements intact, pupils equal and reactive to light bilaterally, mucous membranes moist. Cardiovascular: Heart regular rate and rhythm Chest: Able to complete full sentences, no retractions, no tachypnea, clear to auscultation bilaterally Abdomen: abdomen soft, non-tender, non-distended, no organomegaly Musculoskeletal: Pulses present and equal in all extremities, no peripheral edema Motor: no focal deficits noted Neurological: CN II-XII grossly intact, no focal motor or sensory deficits noted Skin: Intact with no visualized rashes Psych: Normal affect and mood Limitations: no limitations Course Vital Signs 04/19/24 13:26 Temperature 99.8 F H Pulse Rate 90 Respiratory 20 Rate Blood Pressure 110/65 O2 Sat by Pulse 97 Oximetry EKG Findings - EKG Comments: EKG Findings:: My EKG interpretation: Ventricular rate 85, sinus rhythm,. 125, QRS 70, QTc 4 9. No [place] prolongation, no QTC prolongation, no ST or T-wave changes noted. Overall, this EKG is unremarkable Medical Decision Making - Medical Decision Making Was pt. sent in by a medical professional or institution (, PA, ROLL CONTOUR GRINDER, urgent care, hospital, or senior care...) When possible be specific @ -No Did you speak to anyone other than the patient for history (EMS, parent, family, police, friend...)? What history was obtained from this source @ -No Did you review nursing and triage notes (agree or disagree)? Why? @ -I reviewed and agree with nursing and triage notes Were old charts reviewed (outside hosp., previous admission, EMS record, old EKG, old radiological studies, urgent care reports/EKG's, senior care records)? Report findings @ -Differential Dyspnea: Coronary syndrome, arrhythmia, tamponade, asthma, COPD, pulmonary embolism, pneumonia, pneumothorax, pulmonary effusion, anaphylaxis, diabetic ketoacidosis, flailed chest, pulmonary contusion, diaphragmatic rupture, anemia, neuromuscular, this is not meant to be an all-inclusive list. EKG interpreted by me (3pts min.). @ -See above X-rays interpreted by me (1pt min.). @ -Chest x-ray nonacute CT interpreted by me (1pt min.). @ -None done U/S interpreted by me (1pt. min.). @ -None done What testing was considered but not performed or refused? (CT, X-rays, U/S, labs)? Why? @ -None What meds were considered but not given or refused? Why? @ -None Was smoking cessation discussed for >3mins.? @ -No Were there social determinants of health that impacted care today? How? (Homelessness, low income, unemployed, alcoholism, drug addiction, transportation, low edu. Level, literacy, decrease access to med. care, long-term, rehab)? @ -No Was there de-escalation of care discussed even if they declined (Discuss DNR or withdrawal of care, Hospice)? DNR status @ -No What co-morbidities impacted this encounter? (DM, HTN, Smoking, COPD, CAD, Cancer, CVA, ARF, Chemo, Hep., AIDS, mental health diagnosis, sleep apnea, morbid obesity)? @ -None Was patient admitted / discharged? Hospital course, mention meds given and route, prescriptions, significant lab abnormalities, going to OR and other per tinent info. @ -79-year-old female with viral symptoms. Vital signs stable. Labs unremarkable. Chest x-ray clear. Patient positive for coronavirus. Patient not hypoxic will be discharged advised follow-up with primary care doctor. Did you discuss the management of the patient with other professionals (professionals i.e. , PA, ROLL CONTOUR GRINDER, lab, RT, psych nurse, delinquency prevention social worker, motel food service supervisor, teacher, booking officer, pillowcase maker)? Give summary @ -No Was critical care preformed (if so, how long)? @ -No Undiagnosed new problem with uncertain prognosis? @ -No Drug Therapy requiring intensive monitoring for toxicity (Heparin, Nitro, Insulin, Cardizem)? @ -No Were any procedures done? @ -No Diagnosis/symptom? Acute, or Chronic, or Acute on Chronic? Uncomplicated (without systemic symptoms) or Complicated (systemic symptoms)? @ -Acute uncomplicated coronavirus Side effects of treatment? @ -No Exacerbation, Progression, or Severe Exacerbation? @ -No Poses a threat to life or bodily function? How? (Chest pain, USA, [place], pneumonia, PE, COPD, DKA, ARF, appy, cholecystitis, CVA, Diverticulitis, Homicidal, Suicidal, threat to staff... and all critical care pts) @ -No - Lab Data Result diagrams: 04/19/24 13:52 04/19/24 13:52 Lab Results 04/19/24 04/19/24 04/19/24 Range/Units 13:52 13:52 13:52 WBC 5.1 (3.8-10.6) k/uL RBC 4.45 (3.80-5.40) m/uL Hgb 14.6 (11.4-16.0) gm/dL Hct 43.9 (34.0-46.0) % MCV 98.7 (80.0-100.0) fL MCH 32.8 (25.0-35.0) pg MCHC 33.3 (31.0-37.0) g/dL RDW 12.7 (11.5-15.5) % Plt Count 144 L (150-450) k/uL MPV 9.1 Neutrophils % 75 % Lymphocytes % 10 % Monocytes % 10 % Eosinophils % 2 % Basophils % 1 % Neutrophils # 3.8 (1.3-7.7) k/uL Lymphocytes # 0.5 L (1.0-4.8) k/uL Monocytes # 0.5 (0-1.0) k/uL Eosinophils # 0.1 (0-0.7) k/uL Basophils # 0.0 (0-0.2) k/uL Sodium 138 (137-145) mmol/L Potassium 4.1 (3.5-5.1) mmol/L Chloride 105 (98-107) mmol/L Carbon Dioxide 29 (22-30) mmol/L Anion Gap 4 mmol/L BUN 12 (7-17) mg/dL Creatinine 1.03 (0.52-1.04) mg/dL Est GFR (CKD-EPI)AfAm 60 (>60 ml/min/1.73 sqM) Est GFR (CKD-EPI)NonAf 52 (>60 ml/min/1.73 sqM) Glucose 93 (74-99) mg/dL Calcium 8.8 (8.4-10.2) mg/dL Influenza Type A (PCR) Not Detected (Not Detectd) Influenza Type B (PCR) Not Detected (Not Detectd) RSV (PCR) Not Detected (Not Detectd) SARS-CoV-2 (PCR) Detected A (Not Detectd) Disposition Clinical Impression: Coronavirus infection Disposition: HOME SELF-CARE Condition: Good Instructions (If sedation given, give patient instructions): Coronavirus Disease 2019 (COVID-19) Is patient prescribed a controlled substance at d/c from ED?: No Referrals: None,Stated [Primary Care Provider] - 1-2 days Time of Disposition: 14:58
[2024-04-19 14:16] LABS: African American GFR (CKD) 60 (>60 ml/min/1.73 sqM); Anion Gap 4 mmol/L; Blood Urea Nitrogen 12 mg/dL (7-17); Calcium 8.8 mg/dL (8.4-10.2); Carbon Dioxide 29 mmol/L (22-30); Chloride 105 mmol/L (98-107); Glucose 93 mg/dL (74-99); Non-African American GFR(CKD) 52 (>60 ml/min/1.73 sqM); Potassium 4.1 mmol/L (3.5-5.1); Sodium 138 mmol/L (137-145)
[2024-04-19 14:19] LABS: Basophils % (A) 1 %; Eosinophils # (A) 0.1 k/uL (0-0.7); Eosinophils % (A) 2 %; HCT 43.9 % (34.0-46.0); HGB 14.6 gm/dL (11.4-16.0); Lymphocytes # (A) 0.5 k/uL (1.0-4.8); Lymphocytes % (A) 10 %; MCH 32.8 pg (25.0-35.0); MCHC 33.3 g/dL (31.0-37.0); MCV 98.7 fL (80.0-100.0); Mean Platelet Volume 9.1; Monocytes # (A) 0.5 k/uL (0-1.0); Monocytes % (A) 10 %; Neutrophils # (A) 3.8 k/uL (1.3-7.7); Neutrophils % (A) 75 %; Platelet Count 144 k/uL (150-450); RBC 4.45 m/uL (3.80-5.40); RDW 12.7 % (11.5-15.5); WBC 5.1 k/uL (3.8-10.6)
--- NOTE | 2024-04-19 14:46 | XR ---
EXAMINATION TYPE: XR chest 2V DATE OF EXAM: 04/19/2024 COMPARISON: 06/20/2018 HISTORY: 79-year-old female URI, cough TECHNIQUE: AP and lateral views FINDINGS: Heart normal size. Atherosclerotic arch calcifications. Unchanged mild interstitial prominence and mi ld hyperinflation. No consolidation or pleural effusion. IMPRESSION: Correlate for underlying COPD. Otherwise, no definite acute process. [facility], , 04/19/2024 2:44 PM
[2024-04-19 15:26] VITALS: BP 115/60; PULSE 84; RESP 18; TEMP 98.3
== END 2024-04-19 15:16 | disposition home or self-care (01) ==
LOC: EC 13:18
CPT/HCPCS: 36415; 71046; 80048; 85025; 87636; 99285

== ENCOUNTER 2024-04-22 15:46 | Emergency (ER) | payer MEDICARE ==
[2024-04-22 15:58] VITALS: TEMP 98.2
--- NOTE | 2024-04-22 16:17 | ED ---
General Adult HPI - General Chief complaint: Upper Respiratory Infection Stated complaint: covid + Time Seen by Provider: 04/22/24 15:49 Source: patient Mode of arrival: ambulatory Limitations: no limitations - History of Present Illness Initial comments: Dictation was produced using [employer] dictation software. please excuse any grammatical, word or spelling errors. Chief Complaint: 79-year-old female presents to the emergency department for weakness cough after being diagnosed with COVID 3 days ago History of Present Illness: 79-year-old female states that she is back in the emergency department for worsening respiratory symptoms and cough. States that her cough is productive of clear phlegm. Denies any fever, chills or night sweats. States that she feels weak and achy all over. Patient states that she feels like he is worse. Has not follow-up with her primary care doctor at [facility] documented in this emergency department record has been reviewed and confirmed by me. Those systems with pertinent positive or negative responses have been documented in the HPI. All other systems are other negative and/or noncontributory. - Related Data Home Medications Medication Instructions Recorded Confirmed Atorvastatin [Lipitor] 10 mg PO DAILY 05/24/18 03/15/24 traZODone HCL 175 mg PO HS 09/05/21 03/15/24 lamoTRIgine [LaMICtal Xr] 150 mg PO QAM 01/11/23 03/15/24 Aspirin 243 mg PO DAILY PRN 03/10/24 03/10/24 DULoxetine HCL 80 mg PO QAM 03/10/24 03/15/24 Donepezil HCl [Aricept] 10 mg PO HS 03/10/24 03/15/24 Allergies Allergy/AdvReac Type Severity Reaction Status Date / Time Iodinated Contrast Media Allergy Unknown AGITATION, Verified 04/22/24 15:58 [Iodinated Contrast Media - SHAKING IV Dye] prochlorperazine edisylate Allergy agitation, Verified 04/22/24 15:58 [From Compazine] SHAKING/DIZZINESS prochlorperazine maleate Allergy agitation, Verified 04/22/24 15:58 [From Compazine] SHAKING/DIZZINESS pregabalin [From Lyrica] AdvReac Confusion Verified 04/22/24 15:58 sulfamethoxazole AdvReac Nausea & Verified 04/22/24 15:58 [From Bactrim] Vomiting trimethoprim [From Bactrim] AdvReac Nausea & Verified 04/22/24 15:58 Vomiting Review of Systems ROS Statement: Those systems with pertinent positive or pertinent negative responses have been documented in the HPI. ROS Other: All systems not noted in ROS Statement are negative. Past Medical History Past Medical History: Cancer, COPD, Dementia, GERD/Reflux, Hyperlipidemia, Osteoarthritis (OA) Additional Past Medical History / Comment(s): diverticulitis, IBS, constipation, diarrhea, occ blood in stool, HX OF UTERINE CA-yrs ago,beginning stages of dementia-sign own consents,early stages of Parkinson's-uses cane and walker History of Any Multi-Drug Resistant Organisms: C-DIFF Date of last positivie culture/infection: 03/28/17 MDRO Source:: stool Past Surgical History: Bowel Resection, Breast Surgery, Cholecystectomy, Hysterectomy, Tonsillectomy Additional Past Surgical History / Comment(s): LINDA FUNDOPLASTY. 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/2013), jorge breast lumpectomy, colostomy Past Anesthesia/Blood Transfusion Reactions: Previous Problems w/ Anesthesia, Motion Sickness Additional Past Anesthesia/Blood Transfusion Reaction / Comment(s): had trouble breathing one time when coming out of anesthesia Past Psychological History: Anxiety, Depression Smoking Status: Current every day smoker, Vaper - Past Family History Father Family Medical History: Cancer Mother Family Medical History: Cancer Brother(s) Family Medical History: Cancer General Exam - General Exam Comments Initial Comments: PHYSICAL EXAM: General Impression: Alert and oriented x3, not in acute distress HEENT: Normocephalic atraumatic, extra-ocular movements intact, pupils equal and reactive to light bilaterally, mucous membranes moist. Cardiovascular: Heart regular rate and rhythm Chest: Able to complete full sentences, no retractions, no tachypnea Abdomen: abdomen soft, non-tender, non-distended, no organomegaly Musculoskeletal: Pulses present and equal in all extremities, no peripheral edema Motor: no focal deficits noted Neurological: CN II-XII grossly intact, no focal motor or sensory deficits noted Skin: Intact with no visualized rashes Psych: Normal affect and mood Limitations: no limitations Course Vital Signs 04/22/24 04/22/24 04/22/24 15:55 16:35 17:11 Temperature 98.2 F Pulse Rate 95 89 69 Respiratory 22 18 18 Rate Blood Pressure 124/61 129/86 131/59 O2 Sat by Pulse 95 95 95 Oximetry 04/22/24 18:05 Temperature Pulse Rate 62 Respiratory 18 Rate Blood Pressure 143/57 O2 Sat by Pulse 94 L Oximetry EKG Findings - EKG Comments: EKG Findings:: My EKG interpretation: Ventricular rate 90, sinus rhythm,. Normal 121, cures 70, QTc 370. No [place] prolongation, no QTC prolongation, no ST or T-wave changes noted. Overall, this EKG is unremarkable Medical Decision Making - Medical Decision Making Was pt. sent in by a medical professional or institution (, PA, TOP AND SEAT COVER FITTER, urgent care, hospital, or alf...) When possible be specific @ -No Did you speak to anyone other than the patient for history (EMS, parent, family, police, friend...)? What history was obtained from this source @ -No Did you review nursing and triage notes (agree or disagree)? Why? @ -I reviewed and agree with nursing and triage notes Were old charts reviewed (outside hosp., previous admission, EMS record, old EKG, old radiological studies, urgent care reports/EKG's, alf records)? Report findings @ -No old charts were reviewed Differential Diagnosis (chest pain, altered mental status, abdominal pain women, abdominal pain men, vaginal bleeding, musculoskeletal, weakness, fever, dyspnea, syncope, headache, dizziness, GI bleed, back pain, seizure, CVA, palpatations, mental health)? @ -Differential Weakness: Hypoglycemia, shock, sepsis, hyponatremia, anemia, infection, CO, ETOH, adverse medicine reaction, overdose, stroke, this is not meant to be an all-inclusive list. EKG interpreted by me (3pts min.). @ -None done X-rays interpreted by me (1pt min.). @ -Chest x-ray is unremarkable CT interpreted by me (1pt min.). @ -None done U/S interpreted by me (1pt. min.). @ -None done What testing was considered but not performed or refused? (CT, X-rays, U/S, labs)? Why? @ -None What meds were considered but not given or refused? Why? @ -None Was smoking cessation discussed for >3mins.? @ -No Were there social determinants of health that impacted care today? How? (Homelessness, low income, unemployed, alcoholism, drug addiction, transportation, low edu. Level, literacy, decrease access to med. care, residential, rehab)? @ -No Was there de-escalation of care discussed even if they declined (Discuss DNR or withdrawal of care, Hospice)? DNR status @ -No What co-morbidities impacted this encounter? (DM, HTN, Smoking, COPD, CAD, Can cer, CVA, ARF, Chemo, Hep., AIDS, mental health diagnosis, sleep apnea, morbid obesity)? @ -None Was patient admitted / discharged? Hospital course, mention meds given and route, prescriptions, significant lab abnormalities, going to OR and other pertinent info. @ -9-year-old well-appearing female presents to the emergency department with persistent COVID symptoms. Vital signs upon arrival are within acceptable limits. 95% on room air. Rest of vital signs within acceptable limits. Laboratory evaluation obtained. Labs are unremarkable. Patient given IV fluids Toradol Decadron. Observed emergency department for approximately 2 hours and 30 minutes. Reevaluated bedside 6:21 PM found to be in stable mental condition. Patient requesting to be discharged. Patient stable. Advised follow-up with primary care doctor. Did you discuss the management of the patient with other professionals (professionals i.e. , PA, TOP AND SEAT COVER FITTER, lab, RT, psych nurse, clinical social work therapist, transcription, teacher, bsa/aml compliance officer, continuous pillowcase cutter)? Give summary @ -No Was critical care preformed (if so, how long)? @ -No Undiagnosed new problem with uncertain prognosis? @ -No Drug Therapy requiring intensive monitoring for toxicity (Heparin, Nitro, Insulin, Cardizem)? @ -No Were any procedures done? @ -No Diagnosis/symptom? Acute, or Chronic, or Acute on Chronic? Uncomplicated (without systemic symptoms) or Complicated (systemic symptoms)? @ -Malaise secondary to coronavirus Side effects of treatment? @ -No Exacerbation, Progression, or Severe Exacerbation? @ -No Poses a threat to life or bodily function? How? (Chest pain, [place], [place], pneumonia, PE, COPD, DKA, ARF, appy, cholecystitis, CVA, Diverticulitis, Homicidal, Suicidal, threat to staff... and all critical care pts) @ -No - Lab Data Result diagrams: 04/22/24 16:27 04/22/24 16:27 Lab Results 04/22/24 04/22/24 Range/Units 16:27 16:27 WBC 3.9 (3.8-10.6) k/uL RBC 4.37 (3.80-5.40) m/uL Hgb 14.4 (11.4-16.0) gm/dL Hct 43.4 (34.0-46.0) % MCV 99.2 (80.0-100.0) fL MCH 33.1 (25.0-35.0) pg MCHC 33.3 (31.0-37.0) g/dL RDW 12.2 (11.5-15.5) % Plt Count 136 L (150-450) k/uL MPV 9.4 Neutrophils % 65 % Lymphocytes % 18 % Monocytes % 11 % Eosinophils % 2 % Basophils % 1 % Neutrophils # 2.6 (1.3-7.7) k/uL Lymphocytes # 0.7 L (1.0-4.8) k/uL Monocytes # 0.4 (0-1.0) k/uL Eosinophils # 0.1 (0-0.7) k/uL Basophils # 0.0 (0-0.2) k/uL Sodium 139 (137-145) mmol/L Potassium 4.2 (3.5-5.1) mmol/L Chloride 105 (98-107) mmol/L Carbon Dioxide 27 (22-30) mmol/L Anion Gap 7 mmol/L BUN 6 L (7-17) mg/dL Creatinine 0.92 (0.52-1.04) mg/dL Est GFR (CKD-EPI)AfAm 69 (>60 ml/min/1.73 sqM) Est GFR (CKD-EPI)NonAf 60 (>60 ml/min/1.73 sqM) Glucose 100 H (74-99) mg/dL Calcium 8.7 (8.4-10.2) mg/dL Disposition Clinical Impression: Coronavirus infection Disposition: HOME SELF-CARE Condition: Good Instructions (If sedation given, give patient instructions): Coronavirus Disease 2019 (COVID-19) Is patient prescribed a controlled substance at d/c from ED?: No Referrals: Nonstaff,Physician [Primary Care Provider] - 1-2 days Time of Disposition: 18:20
[2024-04-22 16:37] VITALS: RESP 18
[2024-04-22] MEDS: SODIUM CHLORIDE 0.9% 1,000 ML IV STA (16:37)
[2024-04-22] MEDS: DEXAMETHASONE SOD PHOSPHATE 10 MG/ML 1 ML VIAL IV STA (16:41)
[2024-04-22] MEDS: KETOROLAC 15 MG/ML 1 ML VIAL IVP STA (16:46)
[2024-04-22 16:47] LABS: Basophils % (A) 1 %; Eosinophils # (A) 0.1 k/uL (0-0.7); Eosinophils % (A) 2 %; HCT 43.4 % (34.0-46.0); HGB 14.4 gm/dL (11.4-16.0); Lymphocytes # (A) 0.7 k/uL (1.0-4.8); Lymphocytes % (A) 18 %; MCH 33.1 pg (25.0-35.0); MCHC 33.3 g/dL (31.0-37.0); MCV 99.2 fL (80.0-100.0); Mean Platelet Volume 9.4; Monocytes # (A) 0.4 k/uL (0-1.0); Monocytes % (A) 11 %; Neutrophils # (A) 2.6 k/uL (1.3-7.7); Neutrophils % (A) 65 %; Platelet Count 136 k/uL (150-450); RBC 4.37 m/uL (3.80-5.40); RDW 12.2 % (11.5-15.5); WBC 3.9 k/uL (3.8-10.6)
[2024-04-22 17:05] LABS: African American GFR (CKD) 69 (>60 ml/min/1.73 sqM); Anion Gap 7 mmol/L; Blood Urea Nitrogen 6 mg/dL (7-17); Calcium 8.7 mg/dL (8.4-10.2); Carbon Dioxide 27 mmol/L (22-30); Chloride 105 mmol/L (98-107); Glucose 100 mg/dL (74-99); Non-African American GFR(CKD) 60 (>60 ml/min/1.73 sqM); Potassium 4.2 mmol/L (3.5-5.1); Sodium 139 mmol/L (137-145)
--- NOTE | 2024-04-22 17:29 | XR ---
EXAMINATION TYPE: XR chest 2V DATE OF EXAM: 04/22/2024 COMPARISON: 04/19/2024 HISTORY: 79 year-old female with COVID, cough TECHNIQUE: PA and lateral views FINDINGS: Heart normal size. Atherosclerotic arch calcifications. Mild hyperinflation. Some strandy atelectasis /scar anterior lower lungs bilaterally. No fortino consolidation or pleural effusion. IMPRESSION: Possible underlying COPD. No definite acute process. [facility], , 04/22/2024 5:26 PM
[2024-04-22 18:09] VITALS: BP 143/57; PULSE 62
== END 2024-04-22 18:39 | disposition home or self-care (01) ==
LOC: EC 15:46
CPT/HCPCS: 36415; 71046; 80048; 85025; 93005; 96361; 96374; 96375; 99284

== ENCOUNTER → 2024-07-10 | Outpatient (CLI) | payer MEDICARE ==
[2024-07-10 10:22] LABS: African American GFR (CKD) 63 (>60 ml/min/1.73 sqM); Blood Urea Nitrogen 15 mg/dL (7-17); Non-African American GFR(CKD) 55 (>60 ml/min/1.73 sqM)
--- NOTE | 2024-07-11 12:11 | CT ---
EXAMINATION TYPE: CT angio abd aorta w/Runoff DATE OF EXAM: 07/10/2024 12:33 PM COMPARISON: None. CLINICAL INDICATION: Female, 79 years old with history of I73.9 PERIPHERAL VASCULAR DISEASE, PERIPHER AL VASCULAR DISEASE, DISCOLORATION IN FEET TECHNIQUE: Axial images at 5 mm thick sections. Reconstructed images in the coronal plane. Delayed images through the kidneys. Contrast used:80 mL of Isovue 370 with IV Contrast, (none if empty) Oral contrast used: (none if empty) CT DLP: 1713.60 mGycm, Automated exposure control for dose reduction was used. 2-D and 3-D reconstructed images from a separate computer by the technologist are reviewed. FINDINGS: Aortic runoff: Vascular calcifications within the aorta. Celiac axis origin appears patent. Superior mesenteric artery origin is normal. 2 renal arteries are present. Inferior mesenteric artery not iden tified. There are couple of larger lumbar vertebral arteries lower aorta. Aortic bifurcation is without aneurysmal dilatation. Extensive calcification is present especially on the left. Narrowing of the left common iliac artery appears to be present the bifurcation. Bilateral iliac bifurcations the internal and external iliac vessels appear patent. Vascular calcification is in the external iliac vessels. These appear to be patent to the common femoral arteries. Profunda femoris appear normal bilaterally. Superficial femoral arteries are patent to the obturator canals. Popliteal arteries appear patent. Caliber of the left popliteal artery may be slightly smalle r than the right. Anterior tibial arteries, common trunk of the peroneal and posterior tibial arteries are patent. Kassi violetta and posterior tibial arteries are patent at the proximal portions. Caliber of the posterior tibi al arteries is very small bilaterally. Trifurcation vessels likewise appear to have a smaller caliber . Anterior tibial arteries and peroneal arteries are patent to the distal calf. Anterior tibial arterie s appear patent at the ankles bilaterally. Posterior tibial arteries are not identified at the ankle. On the right this extends to just above th e ankle. On the left this appears to be occluded within the proximal calf region left peroneal artery extends to the distal calf region. Right peroneal artery extends to nearly the ankle. Lung bases are clear. CT ABDOMEN: There is an ostomy in the right anterior abdomen Liver: Hepatic cysts are in the right lobe liver. Spleen: Normal Pancreas: Normal Adrenal glands: The adrenal glands are normal. Gallbladder: Normal Kidneys: No masses are evident. No hydronephrosis is present. No cysts are present. No renal stone s are evident Aorta: Extensive Vascular calcification is within the aorta. Inferior vena cava: Normal. CT PELVIS: Left hip prosthesis limits the lower pelvis evaluation. Loops of bowel within the abdomen and pelvis are normal. Study is without oral contrast limiting bowel evaluation Appendix: Not identified. No dilated tubular structure or inflammatory change evident. Urinary bladder: Limited visualization, normal where visualized Genitourinary structures: Uterus appears normal. Adnexa have limited evaluation Osseous structures: No suspicious lytic or sclerotic lesions. IMPRESSION: 1. There appears to be some severe stenosis at the origin of the left common iliac artery. Iliac vess els are patent to the femoral arteries bilaterally. 2. There appears to be narrowing diffusely of the distal trifurcation vessels. Anterior tibial arteri es cross level of the ankle. Left peroneal and left posterior tibial arteries are not visualized beyo nd the catheter. Right posterior tibial artery is not identified beyond the distal lower extremity. [facility], , 07/11/2024 12:09 PM
== END | disposition home or self-care (01) ==
LOC: RADCTMAIN 06-26 13:20
PROVIDERS: ATTEND Surgery
DX: I73.9 Peripheral vascular disease, unspecified (principal)
CPT/HCPCS: 82565; 84520; 75635; 36415; Q9967

== ENCOUNTER 2024-12-31 08:49 | Emergency (ER) | payer MEDICARE ==
--- NOTE | 2024-12-31 09:53 | ED ---
Abdominal Pain HPI - General Chief Complaint: Abdominal Pain Stated Complaint: Urogenital Time Seen by Provider: 12/31/24 09:09 Source: patient, RN notes reviewed Mode of arrival: ambulatory Limitations: no limitations - History of Present Illness Initial Comments: This is a 79-year-old female who presents to the emergency department for problems with her ostomy. Patient had surgery for ostomy creation 2 years ago in [place]. States that this was done as a result of chronic constipation. Over the last 2 weeks she has had reduced output in her ostomy bag. States that it feels like it is filling up with air. Also reports pain/bloating in her abdomen and occasional nausea. This has not happened with her ostomy in the past. She is not trying any medication for it. Denies any fevers or chills. - Related Data Home Medications Medication Instructions Recorded Confirmed traZODone HCL 150 mg PO HS 09/05/21 11/09/24 lamoTRIgine [LaMICtal Xr] 150 mg PO QAM 01/11/23 11/09/24 Aspirin 243 mg PO DAILY PRN 03/10/24 11/09/24 DULoxetine HCL 80 mg PO QAM 03/10/24 11/09/24 Donepezil HCl [Aricept] 10 mg PO HS 03/10/24 11/09/24 cilostazoL [Pletal] 100 mg PO BID 11/06/24 11/09/24 Previous Rx's Medication Instructions Recorded Clopidogrel [Plavix] 75 mg PO DAILY #30 tablet 11/09/24 Allergies Allergy/AdvReac Type Severity Reaction Status Date / Time Iodinated Contrast Media Allergy Unknown AGITATION, Verified 12/31/24 09:05 [Iodinated Contrast Media - SHAKING IV Dye] prochlorperazine edisylate Allergy agitation, Verified 12/31/24 09:05 [From Compazine] SHAKING/DIZZINESS prochlorperazine maleate Allergy agitation, Verified 12/31/24 09:05 [From Compazine] SHAKING/DIZZINESS pregabalin [From Lyrica] AdvReac Confusion Verified 12/31/24 09:05 sulfamethoxazole AdvReac Nausea & Verified 12/31/24 09:05 [From Bactrim] Vomiting trimethoprim [From Bactrim] AdvReac Nausea & Verified 12/31/24 09:05 Vomiting Review of Systems ROS Statement: Those systems with pertinent positive or pertinent negative responses have been documented in the HPI. ROS Other: All systems not noted in ROS Statement are negative. Past Medical History Past Medical History: Cancer, COPD, Dementia, GERD/Reflux, Hyperlipidemia, Memory Impairment, Osteoarthritis (OA), Renal Disease, Vascular Disorder Additional Past Medical History / Comment(s): diverticulitis, IBS, constipation, diarrhea, occ blood in stool, HX OF UTERINE CA-yrs ago, dementia-sign own consents, early stages Parkinson's, Stage III CKD History of Any Multi-Drug Resistant Organisms: C-DIFF Date of last positivie culture/infection: 03/28/17 MDRO Source:: stool Past Surgical History: Bowel Resection, Breast Surgery, Cholecystectomy, Hysterectomy, Orthopedic Surgery, Tonsillectomy Additional Past Surgical History / Comment(s): LINDA FUNDOPLASTY. 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/2013), Lt. hip fracture repair, jorge breast lumpectomy, colostomy, stents to bilateral back of legs, Past Anesthesia/Blood Transfusion Reactions: Previous Problems w/ Anesthesia Additional Past Anesthesia/Blood Transfusion Reaction / Comment(s): had trouble breathing one time years ago when coming out of anesthesia Past Psychological History: Anxiety, Depression Smoking Status: Current every day smoker, Vaper Past Alcohol Use History: None Reported Past Drug Use History: None Reported - Past Family History Father Family Medical History: Cancer Mother Family Medical History: Cancer Brother(s) Family Medical History: Cancer General Exam Limitations: no limitations General appearance: alert, in no apparent distress Head exam: Present: atraumatic, normocephalic, normal inspection Respiratory exam: Present: normal lung sounds bilaterally. Absent: respiratory distress, wheezes, rales, rhonchi, stridor Cardiovascular Exam: Present: regular rate, normal rhythm GI/Abdominal exam: Present: soft, tenderness (Generalized). Absent: distended Neurological exam: Present: alert, oriented X3, CN II-XII intact Psychiatric exam: Present: normal affect, normal mood Skin exam: Present: warm, dry, intact, normal color. Absent: rash Course Vital Signs 12/31/24 12/31/24 09:00 12:27 Temperature 97.8 F 98.8 F Pulse Rate 91 76 Respiratory 18 16 Rate Blood Pressure 116/71 144/86 O2 Sat by Pulse 97 98 Oximetry Medical Decision Making - Medical Decision Making This is a 79-year-old female who presents to the emergency department for abdominal pain and reduced ostomy output Was pt. sent in by a medical professional or institution? @ -No Did you speak to anyone other than the patient for history? @ -No Did you review nursing and triage notes? @ -Yes, and I agree, it is accurate with regards to the patient's symptoms. Were old charts reviewed? @ -No Differential Diagnosis? @ -Differential Abdominal Pain Women: Appendicitis, Cholecystitis, diverticulosis, ischemic bowel, pancreatitis, hepatitis, UTI, gastroenteritis, AAA, incarcerated hernia, bowel obstruction, constipation, inflammatory bowel, hepatitis, peptic ulcer disease, splenic infarction, perforated viscus, vulvitis, ovarian torsion, PID, kidney stone, apple centa abruption, this is not meant to be an all-inclusive list EKG interpreted by me (3pts min.)? @ -Not obtained X-rays interpreted by me (1pt min.)? @ -Not obtained CT interpreted by me (1pt min.)? @ -CT scan of the abdomen and pelvis obtained. My interpretation identifies no dilation of the bowel loops. U/S interpreted by me (1pt. min.)? @ -Not obtained What testing was considered but not performed? (CT, X-rays, U/S, labs)? Why? @ -None What meds were considered but not given? Why? @ -None Did you discuss the management of the patient with other professionals? @ -No Did you reconcile home meds? @ -No Was smoking cessation discussed for >3mins.? @ -No Was critical care preformed (if so, how long)? @ -No Were there social determinants of health that impacted care today? How? (Homelessness, low income, unemployed, alcoholism, drug addiction, transportation, low edu. Level, literacy, decrease access to med. care, retirement, rehab)? @ -No Was there de-escalation of care discussed even if they declined? (Discuss DNR or withdrawal of care, Hospice)? @ -No What co-morbidities impacted this encounter? (DM, HTN, Smoking, COPD, CAD, Cancer, CVA, Hep., AIDS, mental health diagnosis, sleep apnea, morbid obesity)? @ -Ostomy status Was patient admitted / discharged? @ -Discharged. Lab work unremarkable. CT scan of the abdomen and pelvis obtained revealing no signs of obstruction or other acute findings. Her ostomy bag did have stool inside of it. She also did not have any signs of significant fecal retention on her CT scan. Advised that there is nothing else to do at this point and there is no specific treatment that is indicated. Advised that she needs to follow-up with her surgeon regarding her concerns for further evaluation. Patient discharged home in stable condition. Case discussed with ED attending Dr. Riggins. Return precautions reviewed in depth, the patient is instructed to return to the emergency department with any new, worsening, or concerning symptoms. Patient verbalized understanding. Undiagnosed new problem with uncertain prognosis? @ -None Drug Therapy requiring intensive monitoring for toxicity (Heparin, Nitro, Insulin, Cardizem)? @ -None Were any procedures done? @ -None Diagnosis/symptom? @ -Colostomy status Acute, or Chronic, or Acute on Chronic? @ -Acute Uncomplicated (without systemic symptoms) or Complicated (systemic symptoms)? @ -Uncomplicated Side effects of treatment? @ -None Exacerbation, Progression, or Severe Exacerbation] @ -Not applicable Poses a threat to life or bodily function? @ -No - Lab Data Result diagrams: 12/31/24 10:00 12/31/24 10:00 Lab Results 12/31/24 12/31/24 12/31/24 Range/Units 10:00 10:00 10:00 WBC 6.70 (4.50-10.00) 10*3/uL RBC 4.34 (4.10-5.20) 10*6/uL Hgb 13.8 (12.0-15.0) g/dL Hct 41.9 (37.2-46.3) % MCV 96.5 (80.0-97.0) fL MCH 31.8 (27.0-32.0) pg MCHC 32.9 (32.0-37.0) g/dL Plt Count 174 (140-440) 10*3/uL MPV 11.5 (9.5-12.2) fL Immature Gran % (Auto) 0.4 % Neutrophils % 73.8 % Lymphocytes % 10.6 % Monocytes % 11.0 % Eosinophils % 3.6 % Basophils % 0.6 % Immature Gran # 0.03 (0.00-0.04) 10*3/uL Neutrophils # 4.94 (1.80-7.70) 10*3/uL Lymphocytes # 0.71 L (0.90-5.00) 10*3/uL Monocytes # 0.74 (0.20-1.00) 10*3/uL Eosinophils # 0.24 (0.04-0.35) 10*3/uL Basophils # 0.04 (0.00-0.10) 10*3/uL Sodium 143 (137-145) mmol/L Potassium 4.0 (3.5-5.1) mmol/L Chloride 106 (98-107) mmol/L Carbon Dioxide 30 (22-30) mmol/L Anion Gap 7 mmol/L BUN 11 (7-17) mg/dL Creatinine 0.90 (0.52-1.04) mg/dL Est GFR (CKD-EPI)AfAm 71 (>60 ml/min/1.73 sqM) Est GFR (CKD-EPI)NonAf 61 (>60 ml/min/1.73 sqM) Glucose 71 L (74-99) mg/dL Plasma Lactic Acid Ankur 1.1 (0.7-2.0) mmol/L Calcium 9.4 (8.4-10.2) mg/dL Magnesium 2.0 (1.6-2.3) mg/dL Total Bilirubin 0.5 (0.2-1.3) mg/dL AST 16 (14-36) U/L ALT 7 (4-34) U/L Alkaline Phosphatase 75 (38-126) U/L Total Protein 6.2 L (6.3-8.2) g/dL Albumin 4.0 (3.5-5.0) g/dL Lipase 37 (23-300) U/L - Radiology Data Radiology results: report reviewed, image reviewed Disposition Clinical Impression: Colostomy status Disposition: HOME SELF-CARE Instructions (If sedation given, give patient instructions): Colostomy Care (ED) Additional Instructions: Return to the emergency department with any new, worsening, or concerning symptoms. Follow up with your primary care provider and with your surgeon. Is patient prescribed a controlled substance at d/c from ED?: No Referrals: Xuan Tran DO [Primary Care Provider] - 1-2 days Time of Disposition: 12:22
[2024-12-31] MEDS: diphenhydrAMINE 50 MG/ML 1 ML VIAL IVP STA (09:58)
[2024-12-31] MEDS: methylPREDNISolone SOD SUCCI 125 MG/2 ML VIAL IV STA (09:59)
[2024-12-31] MEDS: FAMOTIDINE 20 MG/2 ML VIAL IV STA (09:59)
[2024-12-31] MEDS: ONDANSETRON 4 MG/2 ML VIAL IVP STA (10:00)
[2024-12-31] MEDS: SODIUM CHLORIDE 0.9% 500 ML 500 ML IV ONE (10:05)
[2024-12-31 10:25] LABS: Basophils # (A) 0.04 10*3/uL (0.00-0.10); Basophils % (A) 0.6 %; Eosinophils # (A) 0.24 10*3/uL (0.04-0.35); Eosinophils % (A) 3.6 %; HCT 41.9 % (37.2-46.3); HGB 13.8 g/dL (12.0-15.0); Lymphocytes # (A) 0.71 10*3/uL (0.90-5.00); Lymphocytes % (A) 10.6 %; MCH 31.8 pg (27.0-32.0); MCHC 32.9 g/dL (32.0-37.0); MCV 96.5 fL (80.0-97.0); Monocytes # (A) 0.74 10*3/uL (0.20-1.00); Monocytes % (A) 11.0 %; Neutrophils # (A) 4.94 10*3/uL (1.80-7.70); Neutrophils % (A) 73.8 %; Platelet Count 174 10*3/uL (140-440); RBC 4.34 10*6/uL (4.10-5.20); RDW 12.1 % (11.5-14.5); WBC 6.70 10*3/uL (4.50-10.00)
[2024-12-31 10:37] LABS: ALT 7 U/L (4-34); AST 16 U/L (14-36); African American GFR (CKD) 71 (>60 ml/min/1.73 sqM); Albumin 4.0 g/dL (3.5-5.0); Alkaline Phosphatase 75 U/L (38-126); Anion Gap 7 mmol/L; Blood Urea Nitrogen 11 mg/dL (7-17); Calcium 9.4 mg/dL (8.4-10.2); Carbon Dioxide 30 mmol/L (22-30); Chloride 106 mmol/L (98-107); Glucose 71 mg/dL (74-99); Lipase 37 U/L (23-300); Magnesium 2.0 mg/dL (1.6-2.3); Non-African American GFR(CKD) 61 (>60 ml/min/1.73 sqM); Potassium 4.0 mmol/L (3.5-5.1); Sodium 143 mmol/L (137-145); Total Protein 6.2 g/dL (6.3-8.2)
--- NOTE | 2024-12-31 11:20 | CT ---
EXAMINATION TYPE: CT abdomen pelvis w con DATE OF EXAM: 12/31/2024 11:01 AM COMPARISON: 07/10/2024. CLINICAL INDICATION: Female, 79 years old with history of Abdominal pain, low ostomy output; colostom y bag seems to be plugged TECHNIQUE: Axial CT abdomen pelvis w con;Sagittal and coronal reformats were created on a separate w orkstation. Contrast used:100 ml mL of Isovue 300 with IV Contrast, (none if empty) Oral contrast used: without Oral Contrast (none if empty) CT DLP: 900.9 mGycm, Automated exposure control for dose reduction was used. FINDINGS: LOWER CHEST: Unremarkable ABDOMEN LIVER: Scattered simple appearing hepatic cysts. GALLBLADDER AND BILE DUCTS: The gallbladder is surgically absent. PANCREAS: Unremarkable. SPLEEN: Unremarkable. ADRENAL GLANDS: Unremarkable. KIDNEYS AND URETERS: No evidence of hydronephrosis or obstructing renal calculus. The ureters are unr emarkable. PELVIS BLADDER: No evidence for wall thickening or mass given limitations of exam. REPRODUCTIVE: The uterus is surgically absent. ABDOMEN & PELVIS STOMACH AND BOWEL: Post surgical changes of bowel with ostomy present. Postsurgical changes of the si gmoid colon. No evidence of bowel obstruction. The appendix is normal. PERITONEUM/RETROPERITONEUM: No evidence of pneumoperitoneum or free fluid. VASCULATURE: No evidence of aortic aneurysm. Stent grafts of the common iliac arteries bilaterally. MUSCULOSKELETAL: No acute osseous abnormalities, left hip arthroplasty appears intact. LYMPH NODES: No gross evidence for lymphadenopathy. SOFT TISSUE/ABDOMINAL WALL: Fat-containing umbilical hernia. Ostomy as described below. IMPRESSION: 1. Postsurgical changes with suspected loop ostomy involving the transverse colon without evidence o f bowel obstruction. 2. No definitive acute intra-abdominal process. The appendix is normal. 3. Simple appearing hepatic cyst. [facility], , 12/31/2024 11:17 AM
[2024-12-31 12:32] VITALS: BP 144/86; PULSE 76; RESP 16; TEMP 98.8
== END 2024-12-31 12:36 | disposition home or self-care (01) ==
LOC: EC 08:49
DX: Z93.3 Colostomy status (principal); F17.290 Nicotine dependence, other tobacco product, uncomplicated; Z88.1 Allergy status to other antibiotic agents; Z88.2 Allergy status to sulfonamides; Z91.041 Radiographic dye allergy status; Z88.8 Allergy status to other drugs, medicaments and biological substances
CPT/HCPCS: 36415; 80053; 83605; 83690; 83735; 85025; 74177; 99284; 96374; 96375; 96361; J1200; J2405; Q9967; J2919; J1308